=== PATIENT | male | born 1940 | race Caucasian/White ===

== ENCOUNTER 2016-09-07 12:14 | Outpatient (CLI) ==
[2014-06-18 18:50] VITALS: BMI 26.6
--- NOTE | 2016-09-07 13:10 | US ---
EXAM: Ultrasound bilateral carotid duplex HISTORY: Concern for carotid stenosis with history of left ICA occlusion COMPARISON: Carotid Doppler 03/20/2014 TECHNIQUE: Sonographic and color Doppler evaluation of the carotids were performed. FINDINGS: The right carotid is patent in appearance with moderate scattered atherosclerotic plaque visualized. The right ICA peak systolic velocity measures 190 cm/sec which is elevated. The ICA / CCA peak systolic velocity ratio is 2.0 and ICA end-diastolic velocity is 60 cm/sec. The left carotid is occluded and unchanged with occlusion noted in the proximal left carotid. The l eft side is unchanged in appearance when compared to prior exam. There is color Doppler flow in the most proximal portion of the left ICA. There is plaque noted in the left ECA. Vertebral arteries demonstrate antegrade flow bilaterally. IMPRESSION: 1. Persistent unchanged occlusion of the left ICA. 2. Moderate atherosclerotic plaque of the right ICA with elevated Doppler velocities consistent wit h 50 - 69% narrowing.
== END 2016-09-07 12:15 | disposition home or self-care (01) ==
LOC: RAD 12:14
PROVIDERS: ATTEND Emergency Medicine
DX: I65.29 Occlusion and stenosis of unspecified carotid artery (principal); R42 Dizziness and giddiness

== ENCOUNTER 2016-11-19 17:27 | Inpatient (IN) ==
[2016-11-19] MEDS ORDERED: ZOFRAN 4 MG/2 ML IVP STA (17:36)
[2016-11-19] MEDS ORDERED: NITROSTAT SL PRN (17:36)
--- NOTE | 2016-11-19 17:40 | ED.PDOC ---
General ED Provider: Dr. RUSTY PALACIOS JR Chief Complaint: Chest Pain Stated Complaint: Pain across mid chest left et right. SOA No nausea. Hx VA with CPR 1989.[End]4 hours 98.1 80 21 95% 151/80 5/10 Time Seen by Physician: 17:40 Mode of Arrival: Wheelchair Information Source: Patient Exam Limitations: No limitations Primary Care Provider: IDALIA LAWSON Nursing and Triage Documentation Reviewed and Agree: No Review of Systems - Review Of Systems Constitutional: Reports: Weakness Eyes: Reports: No symptoms Ears, Nose, Mouth, Throat: Reports: No symptoms Respiratory: Reports: No symptoms Cardiac: Reports: Chest pain GI: Reports: No symptoms : Reports: No symptoms Musculoskeletal: Reports: No symptoms Skin: Reports: No symptoms Neurological: Reports: Weakness (right sided chronic) Endocrine: Reports: No symptoms Hematologic/Lymphatic: Reports: No symptoms All Other Systems: Other Past Medical History - Past Medical History Endocrine: Reports: DM 2 Cardiovascular: Reports: CAD, [place], Hypertension, A-Fib Respiratory: Reports: None Hematological: Reports: None Gastrointestinal: Reports: None Genitourinary: Reports: None Neuro/Psych: Reports: CVA Musculoskeletal: Reports: None Cancer: Reports: Other - Surgical History General Surgical History: Reports: CABG - Family History Family History: Reports: Unknown - Social History Smoking Status: Former smoker Hx Substance Use: No Alcohol Screening: None Physical Exam - Physical Exam Appearance: Ill-appearing Ill-appearing: Mild Pain Distress: Mild Eyes: IZABELA, EOMI, Conjunctiva clear ENT: Ears normal, Nose normal, Oropharynx normal Neck: Supple Respiratory: Airway patent, Breath sounds clear, Breath sounds equal, Respirations nonlabored Cardiovascular: RRR, Pulses normal, No rub, No murmur GI/: Soft, Nontender, No masses, Bowel sounds normal, No Organomegaly Musculoskeletal: Limited ROM, Limited strength Skin: Warm, Dry, Normal color Neurological: Sensation intact, Motor intact, Reflexes intact, Cranial nerves intact, Alert, Oriented Psychiatric: Affect appropriate, Mood appropriate Interpretation - Radiology Interpretation Radiology Interpretation By: ED Physician Radiology Results: Negative Exam Interpreted: CXR - EKG Interpretation Time of EKG #1: 17:30 Rate: Normal Rhythm: Sinus (80) Ectopy: PVCs ST Segment: Other (bifascicular blockinverted anterior t waves) Re-Evaluation - Re-Evaluation Time of Re-Evaluation: 18:11 Status: Improved (RN notes pain improving, moving lower, had had beans several hoursbefore pain started) Critical Care Note - Critical Care Note Total Time (mins): 5 Course - Course Hematology/Chemistry: 11/20/16 05:34 11/20/16 05:34 Orders, Labs, Meds: Lab Review 11/19/16 11/19/16 17:36 17:55 WBC 6.49 RBC 4.32 L Hgb 13.4 L Hct 38.7 L MCV 89.6 MCH 31.0 MCHC 34.6 RDW Coeff of Cyrus 12.6 Plt Count 156 Immature Gran % (Auto) 0.5 Neut % (Auto) 73.7 Lymph % (Auto) 16.2 [place] % (Auto) 7.4 Eos % (Auto) 1.7 Baso % (Auto) 0.5 Immature Gran # (Auto) 0.0 Neut # 4.8 Lymph # 1.1 [place] # 0.5 Eos # 0.1 Baso # 0.0 D-Dimer (Manual) 630.84 Puncture Site Lrad O2 Saturation 93.0 L ABG pH 7.399 ABG pCO2 38.0 ABG pO2 68.0 L ABG HCO3 23.5 ABG Total CO2 25 ABG Base Excess -1 Judd Test + FiO2 % 21.0 Sodium 138 Potassium 3.5 Chloride 105 Carbon Dioxide 25 Anion Gap 11.5 BUN 22 H Creatinine 1.44 H Estimated GFR (MDRD) 48.00 BUN/Creatinine Ratio 15.27 Glucose 236 H Calcium 8.9 Total Bilirubin 0.40 AST 18 ALT 20 Alkaline Phosphatase 62 Total Creatine Kinase 63 Troponin I 0.0210 B-Natriuretic Peptide 292 H Total Protein 6.3 Albumin 3.6 Globulin 2.7 Albumin/Globulin Ratio 1.33 Orders Category Date Time Status ADMIT PATIENT INPATIENT .TO [facility] (MONITORED BED) ADMISSION 11/19/16 19: 04 Active ABG DRAW REQUEST Stat CARDIO 11/19/16 17:36 Completed ECHOCARDIOGRAM 2D-M MODE Routine CARDIO 11/19/16 19:09 Completed EKG-(ED ONLY) Stat CARDIO 11/19/16 17:36 Completed EKG-(IP & OP ONLY) DAILY CARDIO 11/20/16 06:00 Completed ACTIVITY .Early Mobilization for VTE Prevention CARE 11/19/16 19:04 Active INTAKE & OUTPUT Q8HR CARE 11/19/16 19:04 Active TELEMETRY MONITORING TELE CARE 11/19/16 19:08 Active VITAL SIGNS Q4HR CARE 11/19/16 19:04 Active CARDIAC DIET DIETARY 11/19/16 Dinner Completed ED APPLY O2 .ONCE EMERGENCY 11/19/16 17:36 Active ED HEARING AIDE TECHNICIAN APPLIED .ONCE EMERGENCY 11/19/16 17:36 Active ED IV/MEDIPORT/POWERPORT .ONCE EMERGENCY 11/19/16 17:36 Active ABG Stat LAB 11/19/16 17:36 Completed B-TYPE NATRIURETIC PEPTIDE Stat LAB 11/19/16 17:55 Completed CBC W/ AUTO DIFF DAILY@0600 LAB 11/20/16 05:34 Completed CBC W/ AUTO DIFF Stat LAB 11/19/16 17:55 Completed COMPREHENSIVE METABOLIC PANEL DAILY@0600 LAB 11/20/16 05:34 Completed COMPREHENSIVE METABOLIC PANEL Stat LAB 11/19/16 17:55 Completed CREATINE KINASE Q8H LAB 11/20/16 01:45 Completed CREATINE KINASE Q8H LAB 11/20/16 09:15 Completed CREATINE KINASE Stat LAB 11/19/16 17:55 Completed D-DIMER Stat LAB 11/19/16 Completed D-DIMER Stat LAB 11/19/16 17:55 Completed TROPONIN I Q8H LAB 11/20/16 01:45 Completed TROPONIN I Q8H LAB 11/20/16 09:15 Completed TROPONIN I Stat LAB 11/19/16 17:55 Completed 0.9 % Sodium Chloride [Saline Flush] MEDS 11/19/16 17:36 Discontinued 1 syr IVF PRN PRN Acetaminophen [Tylenol] MEDS 11/19/16 19:04 Discontinued 650 mg PO Q4H PRN Nitroglycerin [Nitrostat] MEDS 11/19/16 17:36 Discontinued 0.4 mg SL Q5MIN X 3 DOSES PRN Ondansetron HCl/Pf [Zofran 4 mg/2 ml] MEDS 11/19/16 17:36 Discontinued 4 mg IVP ONCE STA Sodium Chloride 0.9% [Sodium Chloride] 1,000 ml MEDS 11/19/16 19:30 Discontinued IV 75 mls/hr RESUSCITATION STATUS Routine OTHERS 11/19/16 19:04 Ordered CHEST, 1V AP ONLY Stat RADS 11/19/16 17:36 Completed Medications Discontinued Medications Generic Name Dose Route Start Last Admin Trade Name Freq PRN Reason Stop Dose Admin Acetaminophen 650 mg 11/19/16 19:04 Tylenol PO Q4H PRN Mild Pain Aspirin 81 mg 11/20/16 09:00 11/20/16 10:15 Aspirin Ec PO 81 mg DAILYWM PRUDENCIO Administration Clopidogrel Bisulfate 75 mg 11/20/16 09:00 11/20/16 10:20 Plavix PO 75 mg DAILY PRUDENCIO Administration Ferrous Sulfate 324 mg 11/20/16 09:30 11/20/16 10:22 Ferrous Sulfate PO 324 mg BID PRUDENCIO Administration Fish Oil 1,000 mg 11/20/16 09:30 11/20/16 10:25 Bethesda-3 Fish Oil PO 1,000 mg DAILY PRUDENCIO Administration Hydrochlorothiazide 6.25 mg 11/20/16 09:30 11/20/16 10:23 Hydrochlorothiazide PO 6.25 mg DAILY PRUDENCIO Administration Sodium Chloride 1,000 mls @ 75 mls/hr 11/19/16 19:30 11/20/16 09:27 Sodium Chloride IV 75 mls/hr .[id number] PRUDENCIO Administration Linagliptin 5 mg 11/20/16 09:00 11/20/16 10:21 Tradjenta PO 5 mg DAILY [facility] Administration Lisinopril 5 mg 11/20/16 09:30 Zestril PO DAILY [facility] Lisinopril 5 mg 11/20/16 09:30 11/20/16 10:26 Zestril PO 5 mg DAILY [facility] Administration Nitroglycerin 0.4 mg 11/19/16 17:36 Nitrostat SL Q5MIN X 3 DOSES PRN Chest Pain Ondansetron HCl 4 mg 11/19/16 17:36 11/19/16 23:42 Zofran 4 Mg/2 Ml IVP 11/19/16 17:37 Not Given ONCE STA Pantoprazole Sodium 40 mg 11/20/16 09:00 11/20/16 10:21 Protonix PO 40 mg QDAC [facility] Administration Paroxetine HCl 20 mg 11/20/16 09:00 11/20/16 10:19 Paxil PO 20 mg DAILY [facility] Administration Potassium Chloride 8 meq 11/20/16 09:00 11/20/16 10:18 Klor-Con 8 Meq PO 8 meq DAILY PRUDENC[facility] Administration Simvastatin 40 mg 11/20/16 21:00 Zocor PO BEDTIME [facility] Sodium Chloride 1 syr 11/19/16 17:36 Saline Flush IVF PRN PRN To flush IV Sotalol HCl 40 mg 11/20/16 09:00 11/20/16 10:15 Betapace PO 40 mg BID PRUDENCIO Administration Sucralfate 1 gm 11/20/16 11:00 11/20/16 11:21 Carafate PO 1 gm ACHS PRUDENCIO Administration Vital Signs: Temp Pulse Resp BP Pulse Ox 11/19/16 17:29 98.1 F 80 21 151/80 H 95 SUDHA Risk Score SUDHA Risk Score: Risk Score Odds of by 30D 0 0.1 (0.1-0.2) 1 0.3 (0.2-0.3) 2 0.4 (0.3-0.5) 3 0.7 (0.6-0.9) 4 1.2 (1.0-1.5) 5 2.2 (1.9-2.6) 6 3.0 (2.5-3.6) 7 4.8 (3.8-6.1) Departure - Departure Time of Disposition: 19:00 Disposition: ADMITTED INPATIENT Discharge Problem: Chest pain Condition: Stable Pt referred to PMD for follow-up: Yes Allergies/Adverse Reactions: Allergies No Known Allergies Allergy (Verified 11/19/16 17:34) Home Medications: Ambulatory Orders Aspirin [Aspirin EC] 81 mg PO DAILY 05/31/13 Clopidogrel Bisulfate [Clopidogrel] 75 mg PO DAILY 05/31/13 Ferrous Fumarate [Iron] 55 mg PO BID 05/31/13 Lisinopril/Hydrochlorothiazide [Lisinopril-Hctz 10-12.5 mg Tab] 0.5 tab PO DAILY 05/31/13 Bethesda-3 Fatty Acids [Fish Oil] 600 mg PO DAILY 05/31/13 Pantoprazole Sodium [Protonix] 40 mg PO QDAC 05/31/13 Paroxetine HCl [Paxil] 20 mg PO DAILY 05/31/13 Potassium Chloride [Klor-Con 8 Meq] 8 meq PO DAILY 05/31/13 Simvastatin [Zocor] 40 mg PO BEDTIME 05/31/13 Sotalol HCl [Sotalol] 40 mg PO BID 05/31/13 Linagliptin [Tradjenta] 5 mg PO DAILY 11/19/16
[2016-11-19 18:02] LABS: BASOPHILS % (AUTO) 0.5 % (0.0-3.0); EOSINOPHILS # (AUTO) 0.1 K/ul (0.0-0.7); EOSINOPHILS % (AUTO) 1.7 % (0.0-7.0); HEMATOCRIT 38.7 % (42.0-52.0); HEMOGLOBIN 13.4 g/dl (14.0-18.0); IMMATURE GRANULOCYTE % (AUTO) 0.5 % (0.0-5.0); LYMPHOCYTES # (AUTO) 1.1 K/uL (0.60-3.4); LYMPHOCYTES % (AUTO) 16.2 (10.0-50.0); MEAN CORPUSCULAR HGB CONC 34.6 (31.8-35.4); MEAN CORPUSCULAR VOLUME 89.6 fl (80.0-94.0); MONOCYTES # (AUTO) 0.5 K/uL (0.4-2.0); MONOCYTES % (AUTO) 7.4 (0-10); NEUTROPHILS # (AUTO) 4.8 K/ul (2.0-6.9); NEUTROPHILS % (AUTO) 73.7; PLATELET COUNT 156 10^3/uL (140-440); RED BLOOD COUNT 4.32 10^6/ul (4.70-6.10); WHITE BLOOD COUNT 6.49 K/ul (4.2-10.2)
[2016-11-19 18:02] LABS: ABG BASE EXCESS -1 (-2.0-2.0); ABG HCO3 23.5 (22.0-26.0); ABG PH 7.399 (7.35-7.45); ABG TCO2 25 (22.0-28.0)
[2016-11-19 18:27] LABS: ALBUMIN 3.6 g/dL (3.4-5.0); ALBUMIN/GLOBULIN RATIO 1.33; ANION GAP 11.5; BILIRUBIN,TOTAL 0.4 mg/dL (0.00-1.20); BUN/CREATININE RATIO 15.27; CALCIUM 8.9 mg/dL (8.2-10.2); CREATININE 1.44 mg/dL (0.60-1.10); POTASSIUM 3.5 mmol/L (3.5-5.1); TOTAL PROTEIN 6.3 g/dL (5.8-8.1); TROPONIN I 0.021 ng/ml (0.0000-0.4000)
[2016-11-19] MEDS ORDERED: TYLENOL PO PRN (19:04)
[2016-11-19 20:22] VITALS: BMI 22.9
[2016-11-19] MEDS: SODIUM CHLORIDE 1,000 ML IV SCH (21:34)
--- NOTE | 2016-11-20 00:38 | DI ---
EXAM: AP single view of the chest. HISTORY: Chest pain. FINDINGS: The bones are unremarkable. At multiple sternotomy wires. The cardiac silhouette and pul monary vasculature are within normal limits. The costophrenic angles are clear. There are calcified granulomas. No infiltrate or consolidation. Impression: No acute cardiopulmonary disease.
[2016-11-20 02:22] LABS: TROPONIN I 0.034 ng/ml (0.0000-0.4000)
[2016-11-20 06:13] LABS: BASOPHILS % (AUTO) 0.3 % (0.0-3.0); EOSINOPHILS # (AUTO) 0.1 K/ul (0.0-0.7); EOSINOPHILS % (AUTO) 1.6 % (0.0-7.0); HEMATOCRIT 39.5 % (42.0-52.0); HEMOGLOBIN 13.4 g/dl (14.0-18.0); IMMATURE GRANULOCYTE % (AUTO) 0.3 % (0.0-5.0); LYMPHOCYTES % (AUTO) 16.6 (10.0-50.0); MEAN CORPUSCULAR HEMOGLOBIN 30.7 pg (27.0-31.0); MEAN CORPUSCULAR HGB CONC 33.9 (31.8-35.4); MEAN CORPUSCULAR VOLUME 90.4 fl (80.0-94.0); MONOCYTES # (AUTO) 0.6 K/uL (0.4-2.0); MONOCYTES % (AUTO) 8.8 (0-10); NEUTROPHILS # (AUTO) 4.6 K/ul (2.0-6.9); NEUTROPHILS % (AUTO) 72.4; PLATELET COUNT 150 10^3/uL (140-440); RED BLOOD COUNT 4.37 10^6/ul (4.70-6.10); WHITE BLOOD COUNT 6.28 K/ul (4.2-10.2)
[2016-11-20 06:36] LABS: ALBUMIN 3.6 g/dL (3.4-5.0); ALBUMIN/GLOBULIN RATIO 1.38; ANION GAP 10.7; BILIRUBIN,TOTAL 0.6 mg/dL (0.00-1.20); BUN/CREATININE RATIO 14.17; CALCIUM 8.6 mg/dL (8.2-10.2); CREATININE 1.34 mg/dL (0.60-1.10); POTASSIUM 3.7 mmol/L (3.5-5.1); TOTAL PROTEIN 6.2 g/dL (5.8-8.1)
--- NOTE | 2016-11-20 08:58 | PN ---
DATE OF SERVICE: 11/19/16 - ADMISSION NOTE SUBJECTIVE: This 75-year-old white male came to the emergency room with complaints of having chest pain. The patient's chest pain is fairly atypical, sharp, shooting pain unrelated to exertion. REVIEW OF SYSTEMS: CONSTITUTIONAL: No night sweats. No fatigue, malaise, lethargy. No fever or chills. HEENT: Eyes: No visual changes. No eye pain. No eye discharge. ENT: No runny nose. No epistaxis. No sinus pain. No sore throat. No odynophagia. No congestion. RESPIRATORY: No cough, no congestion. No hemoptysis. CARDIOVASCULAR: No angina symptoms. No CHF symptoms. No atypical chest pain for CAD. No palpitations. No shortness of breath. GASTROINTESTINAL: No abdominal pain. No nausea or vomiting. No diarrhea or constipation. No hematemesis. No hematochezia. GENITOURINARY: No urgency. No frequency. No dysuria. No hematuria. No obstructive symptoms. No discharge. No pain. No significant abnormal bleeding. MUSCULOSKELETAL: No musculoskeletal pain; no joint swelling. NEUROLOGICAL: No headache. No neck pain. No syncope. No seizures. No dizziness. PSYCHIATRIC: Not anxious. No depression. No suicidal thoughts. No homicidal thoughts. SKIN: No rash. No lesions. No wounds. ENDOCRINE: No unexplained weight loss. No weight gain. HEMATOLOGIC/LYMPHATIC: No anemia. No purpura. No petechiae. No prolonged or excessive bleeding. No palpable lymph nodes. PHYSICAL EXAMINATION: (Reported as unremarkable) V/S: Temperature 97, pulse 75, BP 143/77, respiratory rate 20, 02 sat 95% on room air. HEENT: Head normocephalic, atraumatic. Eyes: Extraocular muscles are intact. Pupils are equal, round and reactive to light and accommodation. Ears: No lesions. Nose appeared normal. Throat: No exudate or erythema. NECK: Supple. No JVD, no carotid bruit. No lymphadenopathy or thyromegaly. LUNGS: Clear to auscultation. Percussion note normal. Chest symmetrical. HEART: S1, S2, no S3. No murmurs. No cyanosis or clubbing. No ascites. Pulses: Dorsalis pedis and posterior tibial pulses +1 to +2 both sides. ABDOMEN: Soft. Nontender. Bowel sounds active. No CVA tenderness. No mass felt. EXTREMITIES: No edema. Full range of motion of all extremities, equal. NEUROLOGIC: No focal deficit. Cranial nerves II through XII are grossly intact. No headache, no double vision or headache. SKIN: Not dry. Intact. Turgor - normal. LYMPHATIC: No palpable lymph nodes/no lymphedema. MUSCULOSKELETAL: Normal joints with no swelling. Muscle tone is normal. LAB TESTS: Troponin negative. CK-MB negative. EKG sinus rhythm unchanged from the one done before. The patient has history of acute [place] and coronary artery bypass surgery with stroke in the past. ASSESSMENT: 1. CHEST PAIN SEEMS TO BE NONCARDIAC, ETIOLOGY UNKNOWN 2. STATUS POST CVA 3. DYSLIPIDEMIA 4. HISTORY OF SMOKING 5. CHRONIC LUNG DISEASE PLAN: 1. Admit 2. Continue all the medications 3. Serial cardiac markers and serial EKGs 4. Telemetry 5. Oximetry The case discussed with ER attending. Condition seems to be stable. TIME SPENT: More than 30 minutes. Plan and coordination of the patient's care discussed in the presence of nurse. JUDSON
[2016-11-20] MEDS ORDERED: FERROUS FUMARATE 55 MG PO SCH (09:00)
[2016-11-20] MEDS ORDERED: FATTY ACIDS PO SCH (09:00)
[2016-11-20] MEDS ORDERED: KLOR-CON 8 MEQ PO SCH (09:00)
[2016-11-20] MEDS ORDERED: PROTONIX PO SCH (09:00)
[2016-11-20] MEDS ORDERED: ASPIRIN EC PO SCH (09:00)
[2016-11-20] MEDS ORDERED: PLAVIX PO SCH (09:00)
[2016-11-20] MEDS ORDERED: OMEGA PO SCH (09:00)
[2016-11-20] MEDS ORDERED: PAXIL PO SCH (09:00)
[2016-11-20] MEDS ORDERED: TRADJENTA PO SCH (09:00)
[2016-11-20] MEDS ORDERED: BETAPACE PO SCH (09:00)
[2016-11-20 09:18] LABS: CHOL/HDL RATIO 4.2 (4.5-6.4)
[2016-11-20] MEDS: SODIUM CHLORIDE 1,000 ML IV SCH (09:27)
[2016-11-20] MEDS ORDERED: FERROUS SULFATE PO SCH (09:30)
[2016-11-20] MEDS ORDERED: ZESTRIL PO SCH ×2 (09:30)
[2016-11-20] MEDS ORDERED: HYDROCHLOROTHIAZIDE PO SCH (09:30)
[2016-11-20] MEDS ORDERED: OMEGA-3 FISH OIL PO SCH (09:30)
[2016-11-20 09:48] LABS: TROPONIN I 0.021 ng/ml (0.0000-0.4000)
--- NOTE | 2016-11-20 10:18 | CT ---
EXAM: CT abdomen pelvis without contrast HISTORY: Abdominal distension and pain COMPARISON: CT abdomen pelvis 06/18/2014 and 04/21/2012 TECHNIQUE: Serial axial images of the abdomen pelvis were performed from the lung bases through the inferior pelvis without contrast. These were viewed in multiple planes. FINDINGS: The lung bases are clear. The heart is enlarged without pericardial effusion. Low attenu ation and the left ventricular apex on the anterior myocardial wall consistent with prior infarct. Evaluation is limited due to lack of contrast. The liver is unremarkable. The gallbladder is mildl y distended. The adrenal glands are unremarkable. The kidneys are unchanged with low attenuation e xophytic lesion in the right kidney which is stable. The spleen is unremarkable. The pancreas is u nremarkable. The stomach is nondistended. The small bowel in the abdomen and pelvis is unremarkable. The colon with wall thickening and mild inflammation with multiple diverticuli of the sigmoid colon as seen on axial image 66 and coronal im age 51. The bladder is distended. The prostate is unremarkable with metallic densities unchanged in the prostate. There is moderate atherosclerotic disease with infrarenal abdominal aortic enlargeme nt measuring 3.1 cm in diameter. The osseous structures demonstrate degenerative disease of the spin e. IMPRESSION: 1. Minimal thickening and ground-glass surrounding the sigmoid colon as described above may represe nt artifact of non distension versus minimal diverticulitis/inflammation. 2. Stable right renal cyst. 3. Stable minimal abdominal aortic dilatation as measured above. 4. Low attenuation in the apex of the left ventricle consistent with previous infarct is unchanged f rom prior exam.
[2016-11-20] MEDS ORDERED: CARAFATE PO SCH (11:00)
--- NOTE | 2016-11-20 12:42 | PCM.PROG ---
Attending Provider: ATTENDING PROVIDER: Dr. IDALIA EMERY -- SEEN BY DR. LANDIN DATE OF SERVICE: 11/20/16 SUBJECTIVE: This 75 year old WHITE/ M was hospitalized 11/19/16. The patient had chest pain yesterday and was admitted by Dr. Emery to rule out ACS. Dr. Emery suggested I take over care of the patient this morning. The patient is seen and examined and states he has no chest pain during my visit with him. He has limited communication secondary to stroke. The patient is no distress. REVIEW OF SYSTEMS: CONSTITUTIONAL: No fever, no chills. ENDOCRINE: No weight loss or weight gain. HEENT: No sinus drainage, no sore throat. CVS: No angina symptoms. No CHF symptoms. No palpitations. No atypical chest pain for CAD. No shortness of breath. RESPIRATORY: No cough, no hemoptysis. GI: No melena. Distention of abdomen. No abdominal pain. No nausea, no vomiting. : No hematuria. No polyuria. SKIN: Chronic dermatitis type changes over entire body. MUSCULOSKELETAL: No pain. BILLING COORDINATOR: No blackout, no dizziness. No headache. No double vision. Right hemiparesis. Aphasic. PSYCHIATRIC: Not anxious; no depression. No suicidal thoughts. No homicidal thoughts. PHYSICAL EXAMINATION: GENERAL: Lying in bed in no distress. VITAL SIGNS: Temperature 97.8 F, Pulse 64, Respiratory Rate 17, BP 139/78, Pulse Ox 94% HEENT: Aphasic. Mucosa is dry, pallor positive. NECK: No JVP, no carotid bruit. No lymphadenopathy. CARDIAC: S1, S2, no S3. No murmur, gallop or regurgitation. LUNGS: Decreased breath sounds. Clear to auscultation. ABDOMEN: Distended, tympanic to percussion. Bowel sounds active. No rigidity , guarding or CVA tenderness. EXTREMITIES: No clubbing, cyanosis or edema. NEUROLOGIC: Awake, alert and oriented x3. Right hemiparesis. LYMPHATIC: No palpable lymph nodes SKIN: Not dry. Intact. MUSCULOSKELETAL: No joint swelling. LAB REVIEW: 11/20/16 05:34 11/20/16 05:34 11/20/16 05:34: WBC 6.28, RBC 4.37 L, Hgb 13.4 L, Hct 39.5 L, MCV 90.4, MCH 30.7 , MCHC 33.9, RDW Coeff of Cyrus 12.6, Plt Count 150, Immature Gran % (Auto) 0.3, Neut % (Auto) 72.4, Lymph % (Auto) 16.6, [place] % (Auto) 8.8, Eos % (Auto) 1.6, Baso % (Auto) 0.3, Immature Gran # (Auto) 0.0, Neut # 4.6, Lymph # 1.0, [place] # 0.6, Eos # 0.1, Baso # 0.0, Sodium 140, Potassium 3.7, Chloride 107, Carbon Dioxide 26, Anion Gap 10.7, BUN 19 H, Creatinine 1.34 H, Estimated GFR (MDRD) 52.00, BUN/Creatinine Ratio 14.17, Glucose 133 H D, Calcium 8.6, Total Bilirubin 0.60, AST 18, ALT 18, Alkaline Phosphatase 53 L, Total Protein 6.2, Albumin 3.6, Globulin 2.6, Albumin/Globulin Ratio 1.38 11/20/16 01:45: Total Creatine Kinase 53, Troponin I 0.0340 ASSESSMENT: 1. Chest pain/rule out ACS 2. Hypertension 3. Dyslipidemia 4. History of aortic aneurysm 5. History of prostate cancer (without treatment) PLAN: 1. CT scan of the abdomen and pelvis without contrast 2. TSH, T4 3. Carafate and Protonix 4. Echocardiogram Plan and coordination of the patient's care discussed in the presence of Vp Digital Marketing and nurse. CONDITION: Stable SCRIBED BY: NANCY LOPEZ Executive Housekeeper scribed while in presence of service performed by Dr. Landin on 11/20/16 (0801)
--- NOTE | 2016-11-20 14:48 | CM.DICTOOL ---
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 ANDERS, 05/31/13 LAST VITALS Temp Pulse Resp BP Pulse Ox 97.4 F L 66 20 149/79 H 96 11/20/16 09:56 11/20/16 09:56 11/20/16 09:56 11/20/16 09:56 11/20/16 09:56 ACTIVE MEDICATIONS Aspirin (Aspirin Ec) 81 mg PO DAILYWM [facility] Last Admin: 11/20/16 10:15 Dose: 81 mg Clopidogrel Bisulfate (Plavix) 75 mg PO DAILY [facility] Last Admin: 11/20/16 10:20 Dose: 75 mg Ferrous Sulfate (Ferrous Sulfate) 324 mg PO BID [facility] Last Admin: 11/20/16 10:22 Dose: 324 mg Fish Oil (Alma-3 Fish Oil) 1,000 mg PO DAILY [facility] Last Admin: 11/20/16 10:25 Dose: 1,000 mg Linagliptin (Tradjenta) 5 mg PO DAILY [facility] Last Admin: 11/20/16 10:21 Dose: 5 mg Lisinopril (Zestril)/Hydrochlorothiazide (Hydrochlorothiazide) 6.25-5 mg mg PO DAILY [facility] Last Admin: 11/20/16 10:26 Dose: 5 mg Pantoprazole Sodium (Protonix) 40 mg PO QDAC [facility] Last Admin: 11/20/16 10:21 Dose: 40 mg Paroxetine HCl (Paxil) 20 mg PO DAILY [facility] Last Admin: 11/20/16 10:19 Dose: 20 mg Potassium Chloride (Klor-Con 8 Meq) 8 meq PO DAILY [facility] Last Admin: 11/20/16 10:18 Dose: 8 meq Simvastatin (Zocor) 40 mg PO BEDTIME [facility] Sotalol HCl (Betapace) 40 mg PO BID [facility] Last Admin: 11/20/16 10:15 Dose: 40 mg ALLERGIES No Known Allergies Allergy (Verified 03/23/17 17:34) NEW PRESCRIPTIONS: NO NEW PRESCRIPTIONS SMOKING: FORMER SMOKER DISEASE SPECIFIC EDUCATION: CHEST PAIN HOME MEDICATIONS ACTIVITY FOLLOW UP LAB REVIEW: 11/20/16 05:34 11/20/16 05:34 11/20/16 09:15: Total Creatine Kinase 64, Troponin I 0.0210 11/20/16 05:50: Triglycerides 106, Cholesterol 144, LDL Cholesterol, Calc 89, VLDL Cholesterol 21, HDL Cholesterol 34 L, Cholesterol/HDL Ratio 4.2 L, TSH 2.670, Free T4 0.87 11/20/16 05:34: WBC 6.28, RBC 4.37 L, Hgb 13.4 L, Hct 39.5 L, MCV 90.4, MCH 30.7 , MCHC 33.9, RDW Coeff of Cyrus 12.6, Plt Count 150, Immature Gran % (Auto) 0.3, Neut % (Auto) 72.4, Lymph % (Auto) 16.6, [place] % (Auto) 8.8, Eos % (Auto) 1.6, Baso % (Auto) 0.3, Immature Gran # (Auto) 0.0, Neut # 4.6, Lymph # 1.0, [place] # 0.6, Eos # 0.1, Baso # 0.0, Sodium 140, Potassium 3.7, Chloride 107, Carbon Dioxide 26, Anion Gap 10.7, BUN 19 H, Creatinine 1.34 H, Estimated GFR (MDRD) 52.00, BUN/Creatinine Ratio 14.17, Glucose 133 H D, Calcium 8.6, Total Bilirubin 0.60, AST 18, ALT 18, Alkaline Phosphatase 53 L, Total Protein 6.2, Albumin 3.6, Globulin 2.6, Albumin/Globulin Ratio 1.38 11/20/16 01:45: Total Creatine Kinase 53, Troponin I 0.0340 11/19/16 : D-Dimer (Manual) 630.84 PLAN: DISCHARGE HOME TODAY. RETURN TO SEE DR. ADAME IN 5-7 DAYS. PLEASE PHONE TO SCHEDULE YOUR FOLLOW UP APPOINTMENT [phone] RESUME YOUR HOME MEDICATIONS PER LIST PROVIDED BY THE NURSING STAFF NO NEW MEDICATIONS ACTIVITY: GET PLENTY OF REST AT HOME. GRADUALLY INCREASE YOUR ACTIVITY LEVEL ACCORDING TO YOUR TOLERATION DIET: CONSISTENT CARBS SUMMARY: THE PATIENT IS ALERT AND ORIENTED X3. HE HAS EXPRESSIVE APHASIA AND RIGHT SIDE HEMAPARESIS RESULTING FROM A PAST CVA. HE VERBALIZES "YES" TO QUESTIONS ASKED BUT NODS HIS HEAD YES OR NO APPROPRIATELY TO ANSWER QUESTIONS. HE IS ABLE TO MAKE HIS WANTS AND NEEDS KNOWN. CURRENTLY MR. POLK RESIDES AT HOME ALONE. 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 SHE ALSO ASSISTS WITH HYGIENIC NEEDS. SHE PROVIDES SERVICES IN HIS HOME 69 HOURS OVER A TWO WEEK PERIOD. MR. POLK IS COMPLETELY UNABLE TO AMBULATE. 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 HE HAS A CANE BUT IS UNABLE TO USE IT. HE DOES NOT UTILIZE HOME HEALTH SERVICES. HE DESIRES TO RETURN TO HIS HOME AT DISCHARGE. THE PATIENT HAS A WOUND TO HIS RIGHT OUTER ANKLE FROM A RECENT FALL. WOUND CARE IS BEING PROVIDED THROUGH [facility]. OTHERWISE HE HAS NO DECUBITUS ULCERS PRESENT. HE IS AWARE AND AGREEABLE FOR DISCHARGE TODAY. YASSINE ADAME M.D.
[2016-11-20 14:57] VITALS: BP 152/73; TEMP 97.6
[2016-11-20] MEDS ORDERED: ZOCOR PO SCH (21:00)
--- NOTE | 2016-11-23 08:40 | ECHO2D ---
Date of Exam: 11/20/16 Ordering Physician: IDALIA LAWSON Reason for Echo: CHEST PAIN, HTN, DM, CVA, A-FIB, CAD, CABG M-Mode Normal Adult Results LV Dimensions Normal Adult Results AoV Opening excursions >1.6 >1.6 LVEDD-base- 3.5-5.8 6.0 Ao root dimensions 2.0-3.7 3.8 LVESD-base- 3.1-4.6 L. Atrium dimensions 1.9-3.8 4.5 Post. Wall thickness 0.8-1.1 1.3 IV septum (thickness) 0.7-1.2 1.2 Post. Wall excursion 0.72-1.3 0.6 Septal motion 0.3 Systolic motion R. Ventricular cavity 1.5-2.0 NORMAL LVEF 60% 20 TO 25% Paradoxical septal wall motion NORMAL 2-D : ENLARGED LEFT ATRIAL AND LEFT VENTRICLE CAVITIES--HYPOKINETIC LEFT VENTRICLE--NORMAL VALVES--NO EFFUSION, NO THROMBUS M-MODE: MV: NORMAL AV: NORMAL TV: NORMAL PV: NORMAL CHAMBER SIZE: ENLARGED LEFT ATRIAL AND LEFT VENTRICLE CAVITIES WALL MOTION: HYPOKINETIC LEFT VENTRICLE PERICARDIUM: NORMAL INTERPRETATION: 1. BORDERLINE LEFT VENTRICULAR HYPERTROPHY 2. ENLARGED LEFT ATRIAL AND LEFT VENTRICLE CAVITIES 3. HYPOKINETIC LEFT VENTRICLE 4. LEFT VENTRICULAR EJECTION FRACTION 20 TO 25% 5. NORMAL VALVES MTDD
--- NOTE | 2016-12-31 13:43 | SSS ---
DATE OF SERVICE: 11/20/16 REASON FOR ADMISSION/ HISTORY OF PRESENT ILLNESS: Chest pain, midsternal, sharp and nonradiating. Some shortness of breath. The patient's family brought to the emergency room and seen by Dr. Blunt and was admitted to Dr. Emery for chest pain, rule out ACS. Initial lab work is negative for coronary artery disease but given his history hypertension ,CVA and dyslipidemia the patient was admitted for the chest pain rule out acute coronary syndrome. BNP was 292. Initially Dr. Emery saw that patient and gave to me for the followup. REVIEW OF SYSTEMS: CONSTITUTIONAL: No night sweats. No fatigue, malaise, lethargy. No fever or chills. HEENT: Eyes: No visual changes. No eye pain. No eye discharge. ENT: No runny nose. No epistaxis. No sinus pain. No sore throat. No odynophagia. No ear pain. No congestion. RESPIRATORY: No cough, no congestion. No hemoptysis. CARDIOVASCULAR: No angina symptoms. No CHF symptoms. Chest pain. No palpitations. Some shortness of breath. GASTROINTESTINAL: No abdominal pain. No nausea or vomiting. No diarrhea or constipation. No hematemesis. No hematochezia. GENITOURINARY: No urgency. No frequency. No dysuria. No hematuria. No obstructive symptoms. No discharge. No pain. No significant abnormal bleeding. MUSCULOSKELETAL: No musculoskeletal pain. No joint swelling. NEUROLOGICAL: Awake, alert, oriented to time, place and person. No headache. No neck pain. No syncope. No seizures. No dizziness. PSYCHIATRIC: Not anxious. No depression. No suicidal thoughts. No homicidal thoughts. SKIN: No rash. No lesions. No wounds. ENDOCRINE: No unexplained weight loss. No weight gain. HEMATOLOGIC/LYMPHATIC: No anemia. No purpura. No petechiae. No prolonged or excessive bleeding. No palpable lymph nodes. PAST MEDICAL/SURGICAL HISTORY: CAD with history of PA Hypertension Dyslipidemia Heart attack in 1988 and the patient was given CPR CVA with right sided hemiparesis COPD GERD Diverticulosis Prostate cancer, radiation three years ago Diabetes Hypothyroidism Bypass surgery Cataract surgery PERSONAL/FAMILY HISTORY/SOCIAL HISTORY: The patient used to smoke but quit 2006. Family history is significant for the cancer and diabetes. PHYSICAL EXAMINATION: VITAL SIGNS: Blood pressure 139/78, respiratory 17, heart rate 64, temperature 97.8. HEENT: Head normocephalic, atraumatic. Eyes: Extraocular muscles are intact. Pupils are equal, round and reactive to light and accommodation. Ears: No lesions. Nose appeared normal. Throat: No exudate or erythema. Mucosa dry. Pallor positive. No icterus. NECK: Supple. No JVD, no carotid bruit. No lymphadenopathy or thyromegaly. LUNGS: Bilateral entry is decreased and clear to auscultation. Percussion note normal. Chest symmetrical. HEART: S1, S2, no S3. No murmurs. No cyanosis or clubbing. No ascites. Pulses: Dorsalis pedis and posterior tibial pulses +1 to +2 both sides. ABDOMEN: Soft. Nontender. Bowel sounds active. No CVA tenderness. No mass felt. EXTREMITIES: No edema. Full range of motion of all extremities, equal. NEUROLOGIC: No focal deficit. Cranial nerves II through XII are grossly intact. No headache, no double vision or headache. The patient is awake and oriented to time and place. Right hemiparesis present. SKIN: Not dry. Intact. Turgor - normal. LYMPHATIC: No palpable lymph nodes/no lymphedema. MUSCULOSKELETAL: Normal joints with no swelling. Muscle tone is normal. ALLERGIES: No known allergies MEDICATIONS: Potassium Fish oil Aspirin Sotalol Zocor Plavix Paroxetine Lisinopril/Hydrochlorothiazide Iron pill Tradjenta LABS/EKG'S/X-RAY/ECHO/ABG: WBC 6.49, hgb 13.4, hct 38.7, plt count 156, D-dimer 630, sodium 138, potassium 3.5, chloride 105, Bicarb 25, BUN 22, creatinine 1.44 and glucose 236. PROGRESS NOTES: The patient was admitted initially under the care of Dr. Eemry then transferred to ct as per Dr. Emery. Three sets of the cardiac enzymes were negative. He did not have any complication during the hospital stay. Echocardiogram was scheduled by Dr. Emery as outpatient. As patient was doing fine and did not have any complications that patient is being discharged home. DIAGNOSES: 1. Chest pain, noncardiac 2. Hypertension 3. Coronary artery disease with history of PA status post bypass surgery 4. Dyslipidemia 5. COPD 6. CVA with right hemiparesis 7. History of atrial fibrillation 8. Diabetes Mellitus, type 2 9. GERD 10. Osteoarthritis 11. History of alcoholism 12. Prostate cancer with radiation RECOMMENDATIONS/PLAN: 1. Discharge patient home 2. Echocardiogram as outpatient 3. Lifestyle modification, weight loss 4. Will see the patient in the office within one week TIME SPENT: More than 65 minutes. JUDSON
== END 2016-11-20 15:04 | disposition home or self-care (01) | DRG 313 ==
LOC: ED 17:27 → MEDSURG B 19:24
PROVIDERS: ADMIT Internal Medicine; ATTEND Emergency Medicine
DX: R07.89 Other chest pain (principal); I69.351 Hemiplegia and hemiparesis following cerebral infarction affecting right dominant side; I10 Essential (primary) hypertension; I51.7 Cardiomegaly; E11.9 Type 2 diabetes mellitus without complications; R06.02 Shortness of breath; I25.10 Atherosclerotic heart disease of native coronary artery without angina pectoris; E78.5 Hyperlipidemia, unspecified; I25.2 Old myocardial infarction; J44.9 Chronic obstructive pulmonary disease, unspecified; K21.9 Gastro-esophageal reflux disease without esophagitis; M19.90 Unspecified osteoarthritis, unspecified site; F10.21 Alcohol dependence, in remission; R14.0 Abdominal distension (gaseous); Z86.79 Personal history of other diseases of the circulatory system; Z79.02 Long term (current) use of antithrombotics/antiplatelets; Z79.84 Long term (current) use of oral hypoglycemic drugs
CPT/HCPCS: 36415; 80053; 80061; 82550; 82803; 83880; 84439; 84443; 84484; 85025; 85379; 93005; 93010; 99284

== ENCOUNTER 2017-10-23 11:35 | Inpatient (IN) ==
--- NOTE | 2017-10-23 11:45 | ED.PDOC ---
General ED Provider: Dr. RAMSES FIGUEROA Chief Complaint: Abdominal Pain Stated Complaint: Patient complains of lower abdominal pain for the past 4 days. No nausea or vomiting. Has a history of stroke in the past, Speech is limited. Also complains of conjestion. Time Seen by Physician: 11:47 Mode of Arrival: Walk-In Information Source: Patient Exam Limitations: Language barrier Primary Care Provider: IDALIA LAWSON Nursing and Triage Documentation Reviewed and Agree: Yes Reviewed sepsis parameters & appropriate labs ordered?: No System Inflammatory Response Syndrome: Not Applicable Sepsis Protocol: For patient's 13 years and over: Temp is 96.8 and below OR 101 and greater Pulse >90 BPM Resp >20/minute Acutely Altered Mental Status Are patient's symptoms suggestive of a new infection, such as: -Pneumonia -Skin, Soft Tissue -Endocarditis -UTI -Bone, Joint Infection -Implantable Device -Acute Abdominal Infection -Wound Infection -Meningitis -Blood Stream Catheter Infection -Unknown System Inflammatory Response Syndrome: Not Applicable GI Complaint Exam - Abdominal Pain Complaint/Exam Onset: Gradual Duration: 4 days Symptoms Are: Still present Timing: Constant Initial Severity: Moderate Current Severity: Moderate Location of Pain: RLQ, LLQ Character: Reports: Unable to describe Alleviating: Reports: None (did not respond to Pepto Bismal. ) Associated Signs and Symptoms: Reports: Cough. Denies: Diaphoresis, Fever, Chest pain, Dizziness, Back pain, Constipation, Blood in stool, Dysuria, Urinary frequency, Decreased urine output, Decreased appetite, Discharge, Nausea , Vomiting, Diarrhea, Decreased activity AAA Risk Factors: Reports: None Cardiac Risk Factors: Reports: Hypertension, CAD Testicular Torsion Risk Factors: Reports: None Abdominal Findings: Absent: Rebound tenderness, Peritoneal signs, McBur[place]'s Point tender, CVA Tenderness, Hernia, Inguinal swelling Differential Diagnoses: ACS, AMI, Appendicitis, Bowel Obstruction, Diverticulitis, Pancreatitis, GB, UTI Quality Indicators for Cardiac Chest Pain: EKG in 10min. Review of Systems - Review Of Systems Constitutional: Reports: Loss of appetite. Denies: Diaphoresis, Fever, Malaise , Weakness Respiratory: Reports: Cough GI: Reports: Abdominal pain, Poor appetite. Denies: Nausea, Vomiting : Reports: No symptoms Musculoskeletal: Reports: No symptoms Skin: Reports: No symptoms Neurological: Reports: Weakness All Other Systems: Reviewed and Negative Past Medical History - Past Medical History Endocrine: Reports: DM 2 Cardiovascular: Reports: CAD, ND, Hypertension, A-Fib Respiratory: Reports: None Hematological: Reports: None Gastrointestinal: Reports: None Genitourinary: Reports: None Neuro/Psych: Reports: CVA Musculoskeletal: Reports: None Cancer: Reports: Other - Surgical History General Surgical History: Reports: CABG - Family History Family History: Reports: Unknown - Social History Smoking Status: Former smoker Hx Substance Use: No Alcohol Screening: None - Immunizations Tetanus Shot up to Date: No Physical Exam - Physical Exam Appearance: Ill-appearing Ill-appearing: Moderate Pain Distress: Mild Eyes: IZABELA, EOMI, Conjunctiva clear Neck: Supple Respiratory: Rhonchi (left base ) Cardiovascular: RRR, Pulses normal, No rub, No murmur GI/: Soft, Tender (mild lower abdominal tenderness.) Musculoskeletal: Normal strength, ROM intact, No edema, No calf tenderness Skin: Warm Neurological: Alert, Focal Deficit (Right Hemiparesis, Dysarthira ) Psychiatric: Anxious Interpretation - Radiology Interpretation Radiology Interpretation By: Radiologist Exam Interpreted: CT Scan (chest Abdomen and Pelvis ) - Tube Sorter Rate: Normal Rhythm: Sinus Ectopy: None - EKG Interpretation Time of EKG #1: 11:51 Rate: Normal Rhythm: Sinus Ectopy: None [place]: Left ST Segment: Normal Interpretation: Sinus Rhythm with sinus Arrhythmia Re-Evaluation - Re-Evaluation Time of Re-Evaluation: 14:11 Status: Improved Pain Level: no more abdominal pain Physician Notification - Case Discussed Physician Notified: Lawson Time of Notification: 13:40 (Admit with steroids, Antibiotx,) Critical Care Note - Critical Care Note Total Time (mins): 0 Course - Course Hematology/Chemistry: 10/23/17 12:15 10/23/17 12:15 Orders, Labs, Meds: Lab Review 10/23/17 10/23/17 10/23/17 12:15 12:15 12:15 WBC 7.38 RBC 4.59 L Hgb 14.3 Hct 40.9 L MCV 89.1 MCH 31.2 H MCHC 35.0 RDW Coeff of Cyrus 13.1 Plt Count 185 Immature Gran % (Auto) 0.3 Neut % (Auto) 71.0 Lymph % (Auto) 17.5 [place] % (Auto) 7.7 Eos % (Auto) 3.0 Baso % (Auto) 0.5 Immature Gran # (Auto) 0.0 Neut # 5.2 Lymph # 1.3 [place] # 0.6 Eos # 0.2 Baso # 0.0 Sodium 141 Potassium 3.5 Chloride 106 Carbon Dioxide 27 Anion Gap 11.5 BUN 19 H Creatinine 1.31 H Estimated GFR (MDRD) 53.00 BUN/Creatinine Ratio 14.50 Glucose 130 H Calcium 9.0 Total Bilirubin 0.5 AST 18 ALT 20 Alkaline Phosphatase 50 L Total Creatine Kinase 63 Troponin I 0.0410 Total Protein 6.7 Albumin 3.5 Globulin 3.2 Albumin/Globulin Ratio 1.09 Amylase 38 Lipase 29 Urine Color Urine Clarity Urine pH Ur Specific [place] Urine Protein Urine Glucose (UA) Urine Ketones Urine Blood Urine Nitrite Urine Bilirubin Urine Urobilinogen Ur Leukocyte Esterase Urine Microscopic RBC Urine Microscopic WBC Ur Squamous Epith Cells Influenza A (Rapid) Influenza B (Rapid) 10/23/17 10/23/17 12:22 13:06 WBC RBC Hgb Hct MCV MCH MCHC RDW Coeff of [place]yrus Plt Count Immature Gran % (Auto) Neut % (Auto) Lymph % (Auto) [place] % (Auto) Eos % (Auto) Baso % (Auto) Immature Gran # (Auto) Neut # Lymph # [place] # Eos # Baso # Sodium Potassium Chloride Carbon Dioxide Anion Gap BUN Creatinine Estimated GFR (MDRD) BUN/Creatinine Ratio Glucose Calcium Total Bilirubin AST ALT Alkaline Phosphatase Total Creatine Kinase Troponin I Total Protein Albumin Globulin Albumin/Globulin Ratio Amylase Lipase Urine Color Yellow Urine Clarity Clear Urine pH 7.0 Ur Specific [place] 1.015 Urine Protein Trace Urine Glucose (UA) Negative Urine Ketones Negative Urine Blood Trace-intact Urine Nitrite Negative Urine Bilirubin Negative Urine Urobilinogen 0.2 Ur Leukocyte Esterase Negative Urine Microscopic RBC 0-2 Urine Microscopic WBC 0-2 Ur Squamous Epith Cells Not present Influenza A (Rapid) Negative by naat Influenza B (Rapid) Negative by naat Orders Category Date Time Status EKG-(ED ONLY) Stat CARDIO 10/23/17 11:37 Completed NEBULIZER TREATMENT Routine CARDIO 10/23/17 13:38 Active NEBULIZER TREATMENT Stat CARDIO 10/23/17 12:06 Completed AMYLASE Stat LAB 10/23/17 12:15 Completed CBC W/ AUTO DIFF Stat LAB 10/23/17 12:15 Completed COMPREHENSIVE METABOLIC PANEL Stat LAB 10/23/17 12:15 Completed CREATINE KINASE Stat LAB 10/23/17 12:15 Completed FLU A/B MOLECULAR Stat LAB 10/23/17 12:22 Completed LIPASE Stat LAB 10/23/17 12:15 Completed RAPID STREP SCREEN [MOLECULAR GROUP A STREP] Stat LAB 10/23/17 12:22 Completed TROPONIN I Stat LAB 10/23/17 12:15 Completed URINALYSIS C & S IF INDICATED Stat LAB 10/23/17 13:06 Completed Azithromycin [Zithromax] MEDS 10/23/17 13:35 Discontinued 500 mg PO ONCE STA Ceftriaxone Sodium [Rocephin] 1 gm MEDS 10/23/17 13:35 Discontinued 0.9 % Sodium Chloride [Sodium Chloride] 50 ml IV ONCE Ipratropium/Albuterol Neb [Duoneb] MEDS 10/23/17 12:05 Discontinued 1 vial NEB ONCE STA Levalbuterol HCl [Xopenex 1.25 mg] MEDS 10/23/17 18:00 Active 1 vial NEB RTQ6H Methylprednisolone Sod Succ/Pf [Solu-Medrol 125 mg] MEDS 10/23/17 13:35 Discontinued 125 mg IVP ONCE STA Methylprednisolone Sod Succ/Pf [Solu-Medrol 125 mg] MEDS 10/23/17 21:00 Active [address] ABDOMEN/PELVIS WO CONTRAST Stat RADS 10/23/17 11:[address] CHEST W/O CONTRAST Stat RADS 10/23/17 11:52 Completed Medications Generic Name Dose Route Start Last Admin Trade Name Freq PRN Reason Stop Dose Admin Acetaminophen 650 mg 10/23/17 14:03 Tylenol PO Q4H PRN Mild pain or Fever Acetaminophen/Hydrocodone Bitart 1 tab 10/23/17 14:03 10/23/17 15:29 [place] 5-325 PO 1 tab Q6H PRN Administration Moderate pain Sodium Chloride 1,000 mls @ 100 mls/hr 10/23/17 14:30 10/23/17 15:31 Sodium Chloride IV 100 mls/hr .Q10H PRUDENCIO Administration Levalbuterol HCl 1 vial 10/23/17 18:00 Xopenex 1.25 Mg NEB RTQ6H PRUDENCIO Methylprednisolone Sodium Succinate 125 mg 10/23/17 21:00 Solu-Medrol 125 Mg IVP Q8HR PRUDENCIO Morphine Sulfate 2 mg 10/23/17 14:03 10/23/17 15:43 Morphine 2 Mg/Ml Syringe IVP 2 mg Q4H PRN Administration Severe Pain Non-Formulary Medication 55 mg 10/23/17 21:00 Ferrous Fumarate [Iron] PO BID [facility] Ondansetron HCl 4 mg 10/23/17 14:03 Zofran 4 Mg/2 Ml IVP Q6H PRN nasuea or vomiting Simvastatin 40 mg 10/23/17 21:00 Zocor PO BEDTIME PRUDENCIO Sotalol HCl 40 mg 10/23/17 21:00 Betapace PO BID PRUDENCIO Discontinued Medications Generic Name Dose Route Start Last Admin Trade Name Freq PRN Reason Stop Dose Admin Albuterol/Ipratropium 1 vial 10/23/17 12:05 10/23/17 12:17 Duoneb NEB 10/23/17 12:06 1 vial ONCE STA Administration Azithromycin 500 mg 10/23/17 13:35 10/23/17 14:03 Zithromax PO 10/23/17 13:36 500 mg ONCE STA Administration Ceftriaxone Sodium 1 gm/ 50 mls @ 75 mls/hr 10/23/17 13:35 10/23/17 14:03 Sodium Chloride IV 10/23/17 14:14 75 mls/hr ONCE STA Administration Methylprednisolone Sodium Succinate 125 mg 10/23/17 13:35 10/23/17 14:03 Solu-Medrol 125 Mg IVP 10/23/17 13:36 125 mg ONCE STA Administration Vital Signs: Temp Pulse Resp BP Pulse Ox 10/23/17 11:37 97.2 F L 79 18 139/77 97 Departure - Departure Time of Disposition: 14:10 Disposition: ADMITTED INPATIENT Discharge Problem: Abdominal pain Acute bronchitis Qualifiers: Bronchitis organism: other organism Qualified Code(s): J20.8 - Acute bronchitis due to other specified organisms Condition: Stable Pt referred to PMD for follow-up: No IPMP verified?: No Allergies/Adverse Reactions: Allergies No Known Allergies Allergy (Verified 10/23/17 11:45) Home Medications: Ambulatory Orders Aspirin [Aspirin EC] 81 mg PO DAILY 05/31/13 Clopidogrel Bisulfate [Clopidogrel] 75 mg PO DAILY 05/31/13 Ferrous Fumarate [Iron] 55 mg PO BID 05/31/13 Lisinopril/Hydrochlorothiazide [Lisinopril-Hctz 10-12.5 mg Tab] 0.5 tab PO DAILY 05/31/13 [place]-3 Fatty Acids [Fish Oil] 600 mg PO DAILY 05/31/13 Pantoprazole Sodium [Protonix] 40 mg PO QDAC 05/31/13 Paroxetine HCl [Paxil] 20 mg PO DAILY 05/31/13 Potassium Chloride [Klor-Con 8 Meq] 8 meq PO DAILY 05/31/13 Simvastatin [Zocor] 40 mg PO BEDTIME 05/31/13 Sotalol HCl [Sotalol] 40 mg PO BID 05/31/13 Linagliptin [Tradjenta] 5 mg PO DAILY 11/19/16
[2017-10-23 11:47] VITALS: BP 139/77; TEMP 97.2; BMI 21.2
[2017-10-23] MEDS ORDERED: DUONEB NEB STA (12:05)
--- NOTE | 2017-10-23 13:06 | CT ---
EXAM: CT scan of the abdomen and pelvis without contrast HISTORY: Lower abdominal pain TECHNIQUE: Imaging of the abdomen and pelvis was performed without contrast. 3 mm thin axial images and coronal and sagittal reconstructions were provided for interpretation. Comparison CT scan of the abdomen and pelvis dated 11/20/2016. FINDINGS: The liver, spleen, pancreas, adrenal glands and kidneys appear normal. The proximal urete rs are normal size. The small and large bowel loops are normal in caliber. There is no free air. N o acute abnormalities are seen within the anterior abdominal wall. There is mild dilatation of the in frarenal abdominal aorta measuring 3.0 cm AP, 3.0 cm transverse. The helical images obtained through the pelvis demonstrate a normal appearance of the rectum, urinary bladder. There is no free fluid seen within the pelvis. There is diffuse diverticular disease of t he sigmoid colon without acute inflammation. The appendix appears normal. No retroperitoneal abnorm alities are seen. Small bilateral pleural effusions are identified. The heart is normal size. No l ytic or blastic lesions are seen within the osseous structures. IMPRESSION: There is no small bowel obstruction. Diffuse diverticular disease of the sigmoid colon without acute inflammation. Interval development of small bilateral pleural effusions. Mild dilatation of the infrarenal abdominal aorta measuring 3 cm diameter. Continued follow-up evalu ation is recommended.
--- NOTE | 2017-10-23 13:07 | CT ---
EXAM: CT scan of the chest without contrast HISTORY: Cough, congestion. TECHNIQUE: Helical imaging of the chest was performed without contrast. 5 mm thin axial images and coronal and sagittal images were provided for interpretation. Comparison CT scan of the chest dated 05/27/2017. FINDINGS: The heart is normal size. Small bilateral pleural effusions are identified. There is flui d seen within the interstitium of the lungs. The heart is normal size. No mediastinal masses are se en. There is atherosclerotic calcification of the thoracic aorta and coronary arteries. No lytic or blastic lesions are seen within the osseous structures. IMPRESSION: Interval development of small bilateral pleural effusions. There is fluid in the interstitium of the lungs and this may represent interstitial edema.
[2017-10-23] MEDS ORDERED: ROCEPHIN 1 GM in SODIUM CHLORIDE 50 ML IV STA (13:35)
[2017-10-23] MEDS ORDERED: ZITHROMAX PO STA (13:35)
[2017-10-23] MEDS ORDERED: SOLU-MEDROL 125 MG IVP STA (13:35)
[2017-10-23] MEDS ORDERED: ROCEPHIN ONE (13:55)
[2017-10-23] MEDS ORDERED: TYLENOL PO PRN (14:03)
[2017-10-23] MEDS ORDERED: MORPHINE 2 MG/ML SYRINGE IVP PRN (14:03)
[2017-10-23] MEDS ORDERED: ZOFRAN 4 MG/2 ML IVP PRN (14:03)
[2017-10-23] MEDS ORDERED: NORCO 5-325 PO PRN (14:03)
[2017-10-23] MEDS ORDERED: SODIUM CHLORIDE 1,000 ML IV SCH (14:30)
[2017-10-23] MEDS: ANECTINE ONE (16:00)
[2017-10-23] MEDS ORDERED: NORCURON IVP STA (16:00)
[2017-10-23] MEDS ORDERED: ANECTINE IVP STA (16:00)
[2017-10-23] MEDS ORDERED: VERSED ONE (16:00)
[2017-10-23] MEDS ORDERED: PHENYLEPHRINE IVP STA (16:00)
[2017-10-23] MEDS ORDERED: VERSED IVP STA (16:00)
[2017-10-23] MEDS: NORCURON ONE (16:10)
--- NOTE | 2017-10-23 16:20 | ED.PDOC ---
Procedures - Intubation Indication: Present: Respiratory Insufficiency Time of Intubation: 16:00 Medications: Yes: Norcuron, Succinylcholine, Versed (see nsg notes times and dosages) Type of Tube Used: Endotracheal Tube Size: 7.5 Cricoid Pressure Used: Yes Tube Smith Used: Yes Position of Tube at Lip: 20cm Number of Attempts: 1 Suction Used: No Glidescope Used: No CO2 Detector Used: Yes Lung Sounds Equal Bilaterally: Yes Intubation Complications: Present: No complications, Apparent aspiration Tube Inserted By: Dr Coleman/Alonzo Heard CRNA Tube Placement Verified by X-ray: Yes - IV/Art Line Insertion Location: LT radial Type of Line: Arterial Line (Art Stick for ABGs) Conscious Sedation - Pre-op Assessment Weight: 170 lb Surgical History: OPEN HEART 89. STROKE YEAR UNKNOWN. CATARACT - Medical History Past Medical History: Hypertension, Diabetes, Cancer, CVA, [place], A-FIb, CAD - Physical Exam Heart Rate/Rhythm: Regular Rhythm
[2017-10-23] MEDS ORDERED: LASIX IVP SCH (16:30)
[2017-10-23] MEDS ORDERED: DOPAMINE 400 MG in PREMIX 250 ML D5W 1 BAG IV SCH (17:30)
--- NOTE | 2017-10-23 17:41 | DI ---
EXAM: Single view chest COMPARISON: Chest Xray from 11/19/2016 HISTORY: Respiratory arrest FINDINGS: There is extensive pulmonary edema seen bilaterally. Cardiac and mediastinal silhouettes show no acute abnormality. There has been prior sternotomy. No acute soft tissue or osseous abnormali ties. There is an endotracheal tube in place with the tip about 6 cm above the stephan. IMPRESSION: 1. Pulmonary edema with endotracheal tube as described.
[2017-10-23] MEDS ORDERED: XOPENEX 1.25 MG NEB SCH (18:00)
[2017-10-23] MEDS ORDERED: SOLU-MEDROL 125 MG IVP SCH (21:00)
[2017-10-23] MEDS ORDERED: BETAPACE PO SCH (21:00)
[2017-10-23] MEDS ORDERED: ZOCOR PO SCH (21:00)
[2017-10-23] MEDS ORDERED: FERROUS FUMARATE 55 MG PO SCH (21:00)
[2017-10-26] MEDS: ANECTINE ONE (12:05)
[2017-10-26] MEDS: NORCURON ONE (12:07)
== END 2017-10-23 17:10 | disposition short-term general hospital (02) | DRG 202 ==
LOC: ED 11:35 → MEDSURG A 13:45
PROVIDERS: ADMIT Internal Medicine; ATTEND Internal Medicine
DX: J40 Bronchitis, not specified as acute or chronic (principal); I63.9 Cerebral infarction, unspecified; R10.32 Left lower quadrant pain; R10.31 Right lower quadrant pain; R06.89 Other abnormalities of breathing; I10 Essential (primary) hypertension; E11.9 Type 2 diabetes mellitus without complications; Z85.9 Personal history of malignant neoplasm, unspecified; I25.2 Old myocardial infarction; Z95.1 Presence of aortocoronary bypass graft; I48.91 Unspecified atrial fibrillation; I25.10 Atherosclerotic heart disease of native coronary artery without angina pectoris
CPT/HCPCS: 36415; 80053; 81001; 82150; 82550; 82803; 83690; 84484; 85025; 87502; 87651; 93005; 93010; 94002; 94640; 96365; 96375; 99285

== ENCOUNTER 2018-09-20 02:00 | Inpatient (IN) | payer OTHER ==
--- NOTE | 2018-09-20 02:09 | ED.PDOC ---
General ED Provider: Dr. CHARLES MENA MD Chief Complaint: Abscess Stated Complaint: abdomen infection Time Seen by Physician: 02:05 Mode of Arrival: Ambulance Information Source: Patient Exam Limitations: No limitations Primary Care Provider: IADLIA LAWSON Nursing and Triage Documentation Reviewed and Agree: Yes Does patient meet sepsis criteria?: No If yes, has appropriate treatment been initiated?: Yes System Inflammatory Response Syndrome: Not Applicable Sepsis Protocol: For patient's 13 years and over: Temp is 96.8 and below OR 101 and greater Pulse >90 BPM Resp >20/minute Acutely Altered Mental Status Are patient's symptoms suggestive of a new infection, such as: -Pneumonia -Skin, Soft Tissue -Endocarditis -UTI -Bone, Joint Infection -Implantable Device -Acute Abdominal Infection -Wound Infection -Meningitis -Blood Stream Catheter Infection -Unknown Review of Systems - Review Of Systems Constitutional: Reports: No symptoms Eyes: Reports: No symptoms Ears, Nose, Mouth, Throat: Reports: No symptoms Respiratory: Reports: No symptoms Cardiac: Reports: No symptoms GI: Reports: No symptoms : Reports: No symptoms Musculoskeletal: Reports: No symptoms Skin: Reports: Lesions (abdominal 10 x 10 cm fluctuant subdermal mass) Neurological: Reports: No symptoms Endocrine: Reports: No symptoms Hematologic/Lymphatic: Reports: No symptoms All Other Systems: Reviewed and Negative Past Medical History - Past Medical History Endocrine: Reports: DM 2 Cardiovascular: Reports: CAD, MO, Hypertension, A-Fib Respiratory: Reports: None Hematological: Reports: None Gastrointestinal: Reports: None Genitourinary: Reports: None Neuro/Psych: Reports: CVA Musculoskeletal: Reports: None Cancer: Reports: Other - Surgical History General Surgical History: Reports: CABG - Family History Family History: Reports: Unknown - Social History Smoking Status: Former smoker Hx Substance Use: No Alcohol Screening: None Physical Exam - Physical Exam Appearance: Thin Ill-appearing: Mild Pain Distress: Mild Eyes: IZABELA, EOMI, Conjunctiva clear ENT: Ears normal, Nose normal, Oropharynx normal Neck: Supple Respiratory: Airway patent Cardiovascular: RRR GI/: Tender, Mass Musculoskeletal: Normal strength, ROM intact, No edema, No calf tenderness Skin: Warm, Dry, Normal color Neurological: Sensation intact, Motor intact, Reflexes intact, Cranial nerves intact, Alert, Oriented Psychiatric: Affect appropriate, Mood appropriate Critical Care Note - Critical Care Note Total Time (mins): 0 Course - Course Hematology/Chemistry: 09/20/18 02:20 09/20/18 02:20 Orders, Labs, Meds: Lab Review 09/20/18 09/20/18 02:20 02:20 WBC 10.17 RBC 3.95 L Hgb 11.8 L Hct 34.8 L MCV 88.1 MCH 29.9 MCHC 33.9 RDW Coeff of Cyrus 13.2 Plt Count 168 Immature Gran % (Auto) 0.3 Neut % (Auto) 76.6 Lymph % (Auto) 12.2 [place] % (Auto) 9.3 Eos % (Auto) 1.3 Baso % (Auto) 0.3 Immature Gran # (Auto) 0.0 Neut # (Auto) 7.8 H Lymph # (Auto) 1.2 [place] # (Auto) 1.0 Eos # (Auto) 0.1 Baso # (Auto) 0.0 Sodium 141.7 Potassium 2.97 L Chloride 99.9 Carbon Dioxide 32.4 H Anion Gap 12.37 BUN 34.2 H Creatinine 1.39 H Estimated GFR (MDRD) 50.00 BUN/Creatinine Ratio 24.60 Glucose 135.9 H Calcium 8.85 Orders Category Date Time Status IV [ED IV/MEDIPORT/POWERPORT] .ONCE EMERGENCY 09/20/18 02:11 Active BMP [BASIC METABOLIC PANEL] Stat LAB 09/20/18 02:20 Completed CBC W/ AUTO DIFF Stat LAB 09/20/18 02:20 Completed 0.9 % Sodium Chloride [Saline Flush] MEDS 09/20/18 02:11 Ordered 1 syr IVF PRN PRN Ceftriaxone Sodium [Rocephin] MEDS 09/20/18 02:26 Discontinued 2 gm .ROUTE .STK-MED ONE Ceftriaxone Sodium [Rocephin] 2 gm MEDS 09/20/18 02:12 Active 0.9 % Sodium Chloride [Sodium Chloride] [address] ABDOMEN/PELVIS WO CONTRAST Stat RADS 09/20/18 02:07 Taken Medications Generic Name Dose Route Start Last Admin Trade Name Freq PRN Reason Stop Dose Admin Ceftriaxone Sodium 2 gm/ 50 mls @ 50 mls/hr 09/20/18 02:12 09/20/18 02:44 Sodium Chloride IV 09/20/18 03:11 50 mls/hr ONCE STA Administration Sodium Chloride 1 syr 09/20/18 02:11 Saline Flush IVF PRN PRN To flush IV Vital Signs: Temp Pulse Resp BP Pulse Ox 09/20/18 02:03 98.9 F 76 20 147/67 H 96 Departure - Departure Time of Disposition: 03:05 Disposition: ADMITTED INPATIENT Discharge Problem: Abdominal wall cellulitis Condition: Good Pt referred to PMD for follow-up: Yes IPMP verified?: No Allergies/Adverse Reactions: Allergies No Known Allergies Allergy (Verified 10/23/17 11:45) Home Medications: Ambulatory Orders Aspirin [Aspirin EC] 81 mg PO DAILY 05/31/13 Clopidogrel Bisulfate [Clopidogrel] 75 mg PO DAILY 05/31/13 Lisinopril/Hydrochlorothiazide [Lisinopril-Hctz 10-12.5 mg Tab] 0.5 tab PO DAILY 05/31/13 [place]-3 Fatty Acids [Fish Oil] 600 mg PO DAILY 05/31/13 Pantoprazole Sodium [Protonix] 40 mg PO QDAC 05/31/13 Paroxetine HCl [Paxil] 20 mg PO DAILY 05/31/13 Potassium Chloride [Klor-Con 8 Meq] 8 meq PO DAILY 05/31/13 Atorvastatin Calcium [Lipitor] 20 mg PO BEDTIME 09/20/18 Furosemide 40 mg PO DAILY 09/20/18 Insulin Detemir [Levemir] 10 units SUBCUT BEDTIME 09/20/18 Insulin Lispro [Humalog] 1 unit SUBCUT ACHS 09/20/18 Polyethylene Glycol 3350 [Miralax] 17 gm PO DAILY 09/20/18 Tamsulosin HCl [Flomax] 0.4 mg PO DAILY 09/20/18 Disposition Discussed With: Patient, Other (Dr Lawson)
[2018-09-20] MEDS ORDERED: ROCEPHIN 2 GM in SODIUM CHLORIDE 50 ML IV STA (02:12)
[2018-09-20] MEDS ORDERED: ROCEPHIN ONE (02:26)
--- NOTE | 2018-09-20 02:55 | CT ---
EXAM: CT abdomen pelvis without intravenous contrast 09/20/2018. Sagittal and coronal reformatted i mages obtained HISTORY: Abdominal abscess COMPARISON: 10/23/2017 FINDINGS: The liver and gallbladder show no acute abnormality. The adrenal glands and kidneys show no acute abnormality. Technically limited evaluation of solid or shannon pathology due to lack of intravenous contrast. Pyelonephritis not excluded. The spleen and pancreas show no acute abnormality. There is no evidence of bowel obstruction. Edna l appendix. Wall thickening of the urinary bladder with perivesicular stranding. Correlate for cyst itis. No free air or free fluid. Diverticulosis without diverticulitis. Atherosclerotic vascular disease. Anterior abdominal subcutaneous stranding and skin thickening. This can be seen on axial series im age 76. This likely represents edema/cellulitis. There is no organized or drainable fluid collectio n. This process remains within the subcutaneous fat. Erosions are present at the inferior aspect of L1 as well as the adjacent superior endplate of L2. T hese findings are new as compared to 10/23/2017. This could represent large Schmorl's nodes. There i s associated endplate sclerosis. There has been loss of disc height at this level since the prior st udy. This could represent diskitis/osteomyelitis. MRI without with contrast could be obtained. Thi s process can be seen on coronal series image 58. IMPRESSION: Number 1. Wall thickening of the urinary bladder. Correlate for cystitis. Pyelonephritis cannot be exclud ed. 2. Stranding in the subcutaneous fat adjacent skin thickening. This likely represents the superfici al cellulitis. No organized drainable fluid collection. 3. There are new endplate erosions at the L1-L2 level. There is new loss of disc height with adjace nt surrounding endplate sclerosis. This could represent large Schmorl's nodes however diskitis/osteo myelitis could give this appearance. MRI with contrast could be obtained for further evaluation.
[2018-09-20 04:57] VITALS: BMI 22.0
[2018-09-20] MEDS ORDERED: HUMALOG SUBCUT SCH (06:30)
[2018-09-20] MEDS ORDERED: KLOR-CON 8 MEQ PO SCH (08:00)
[2018-09-20] MEDS: PAXIL PO SCH (08:50)
[2018-09-20] MEDS: PLAVIX PO SCH (08:51)
[2018-09-20] MEDS: BETAPACE PO SCH ×2 (08:51→21:39)
[2018-09-20] MEDS: PROTONIX PO SCH (08:52)
[2018-09-20] MEDS: FLOMAX PO SCH (08:52)
[2018-09-20] MEDS: HYDROCHLOROTHIAZIDE PO SCH ×2 (08:52→21:38)
[2018-09-20] MEDS: ZESTRIL PO SCH ×2 (08:52→21:39)
[2018-09-20] MEDS: ASPIRIN EC PO SCH (08:53)
[2018-09-20] MEDS: OMEGA-3 FISH OIL PO SCH (08:53)
[2018-09-20] MEDS: MIRALAX PO SCH (08:54)
[2018-09-20] MEDS ORDERED: FATTY ACIDS PO SCH (09:00)
[2018-09-20] MEDS ORDERED: OMEGA PO SCH (09:00)
[2018-09-20] MEDS: CLEOCIN 600 MG in SODIUM CHLORIDE 50 ML IV SCH ×3 (11:29→21:38)
[2018-09-20] MEDS: K-DUR PO SCH ×3 (12:45→21:39)
[2018-09-20] MEDS: HUMALOG SUBCUT PRN (12:57)
--- NOTE | 2018-09-20 14:43 | HP ---
DATE OF SERVICE: 09/20/18 REASON FOR HOSPITALIZATION/HISTORY OF PRESENT ILLNESS: This is a 77 year old white male who presented to the emergency room complaining of a reddened area infected on his abdomen. PAST MEDICAL HISTORY: Coronary artery disease Hypertension GERD Anxiety Dyslipidemia Leg edema Diabetes mellitus type 2 BPH COPD Smoker History of CVA PAST SURGICAL HISTORY: CABG REVIEW OF SYSTEMS: CONSTITUTIONAL: No night sweats. No fatigue, malaise, lethargy. Low grade fever. HEENT: Eyes: No visual changes. No eye pain. No eye discharge. ENT: No runny nose. No epistaxis. No sinus pain. No sore throat. No odynophagia. No ear pain. No congestion. RESPIRATORY: No cough, no congestion. No hemoptysis. No shortness of breath. CARDIOVASCULAR: No angina symptoms. No CHF symptoms. No atypical chest pain for CAD. No palpitations. No PND. No orthopnea. GASTROINTESTINAL: No abdominal pain. No nausea or vomiting. No diarrhea or constipation. No hematemesis. No hematochezia. GENITOURINARY: No urgency. No frequency. No dysuria. No hematuria. No obstructive symptoms. No discharge. No pain. No significant abnormal bleeding. MUSCULOSKELETAL: No musculoskeletal pain. No joint swelling. No arthritis. Weakness. NEUROLOGICAL: No headache. No neck pain. No syncope. No seizures. No dizziness. PSYCHIATRIC: Not anxious. No depression. No suicidal thoughts. No homicidal thoughts. SKIN: No rash. No lesions. No wounds. Mass on Abdomen. ENDOCRINE: No unexplained weight loss. No weight gain. HEMATOLOGIC/LYMPHATIC: No anemia. No purpura. No petechiae. No prolonged or excessive bleeding. No palpable lymph nodes. PERSONAL/FAMILY/SOCIAL HISTORY: The patient quit smoking within the past 6 months, no alcohol or illicit drug use. He is . MEDICATIONS: Potassium Chloride 8meq PO daily Fish Oil 600mg PO daily Aspirin 81mg PO daily Clopidogrel 75mg Po daily Paxil 20mg PO daily Lisinopril one tablet PO twice a day Protonix 40mg PO QDAC Furosemide 40mg PO daily Lipitor 20mg PO bedtime Flomax 0.4mg PO daily Miralax 17 gram PO daily Levemir 10 units SUBCUT ACHS Humalog 100 unit/ml vital one unit SUBCUT ACHS Betapace 40mg PO twice a day ALLERGIES: No known allergies PHYSICAL EXAMINATION: GENERAL: The patient is alert and oriented times three. VITAL SIGNS: Temperature 98.9, heart rate 76, respiratory rate 20, blood pressure 147/67 and pulse ox 96%. HEENT: Head normocephalic, atraumatic. Eyes: Extraocular muscles are intact. Pupils are equal, round and reactive to light and accommodation. Ears: No lesions. Nose appeared normal. Throat: No exudate or erythema. NECK: Supple. No JVD, no carotid bruit. No lymphadenopathy or thyromegaly. LUNGS: Diminished breath sounds bilaterally. Clear to auscultation. Percussion note normal. Chest symmetrical. HEART: S1, S2, no S3. No murmurs. No cyanosis or clubbing. No ascites. Pulses: Dorsalis pedis and posterior tibial pulses +1 to +2 bilaterally. ABDOMEN: Soft. Nontender. Bowel sounds active. No CVA tenderness. No mass felt. 10x10 fluctuant mass on the abdomen with purulent drainage. EXTREMITIES: No edema. Full range of motion of all extremities, equal. NEUROLOGIC: No focal deficit. Cranial nerves II through XII are grossly intact. No headache, no double vision or headache. SKIN: Not dry. Intact. Turgor - normal. LYMPHATIC: No palpable lymph nodes/no lymphedema. MUSCULOSKELETAL: Normal joints with no swelling. Muscle tone is normal. LABS: WBC 10.17, hgb 11.8, hct 34.8, plt count 168, sodium 141, potassium 2.97, BUN 34 , creatinine 1.39, glucose 135, CT of the abdomen shows wall thickening of the bladder, stranding in the subcutaneous fat adjacent skin thickening likely represents superficial cellulitis of the abdomen. No organizable drainable fluid collection. ASSESSMENT: 1. Abdominal cellulitis 2. Hypokalemia 3. COPD 4. Coronary artery disease 5. Former smoker PLAN: 1. Will admit 2. Routine telemetry orders 3. CBC and CMP daily 4. Continue all home medications 5. Rocephin 1 gram IV daily 6. Clindamycin 600mg IV Q 8 hours 7. Continue all home medication s 8. Potassium 40meq PO three times a day 9. Regular diet 10.Wound Culture 11.Tylenol as needed for fever Will follow closely. TIME SPENT: More than 70 minutes. MTDD
[2018-09-20] MEDS ORDERED: LEVEMIR SUBCUT SCH (21:00)
[2018-09-20] MEDS: ROCEPHIN 1 GM in SODIUM CHLORIDE 50 ML IV SCH (21:38)
[2018-09-20] MEDS: LIPITOR PO SCH (21:39)
[2018-09-20] MEDS: LEVEMIR SUBCUT SCH (21:40)
[2018-09-21] MEDS: CLEOCIN 600 MG in SODIUM CHLORIDE 50 ML IV SCH ×3 (05:31→22:25)
[2018-09-21] MEDS: PROTONIX PO SCH (05:57)
[2018-09-21] MEDS: LASIX TAB PO SCH (05:57)
[2018-09-21] MEDS: OMEGA-3 FISH OIL PO SCH (08:39)
[2018-09-21] MEDS: PLAVIX PO SCH (08:39)
[2018-09-21] MEDS: MIRALAX PO SCH (08:39)
[2018-09-21] MEDS: PAXIL PO SCH (08:39)
[2018-09-21] MEDS: HYDROCHLOROTHIAZIDE PO SCH ×2 (08:39→21:20)
[2018-09-21] MEDS: BETAPACE PO SCH ×2 (08:40→21:20)
[2018-09-21] MEDS: ASPIRIN EC PO SCH (08:40)
[2018-09-21] MEDS: K-DUR PO SCH (08:40)
[2018-09-21] MEDS: ZESTRIL PO SCH ×2 (08:40→21:20)
[2018-09-21] MEDS: FLOMAX PO SCH (08:41)
--- NOTE | 2018-09-21 09:37 | PCM.PROG ---
Attending Provider: ATTENDING PROVIDER: Dr. IDALIA LAWSON DATE OF SERVICE: 09/21/18 SUBJECTIVE: This 77 year old WHITE/ M was hospitalized 09/20/18 with cellulitis of the periumbilical area that seems to be resolving. He has been feeling a lot better. The area is becoming localized with some drainage, much less in size. The patient is afebrile. He has dysarthria but seems to be in no distress. No fever, no chills. REVIEW OF SYSTEMS: CONSTITUTIONAL: No night sweats. No fatigue, malaise, lethargy. No fever or chills. HEENT: Eyes: No visual changes. No eye pain. No eye discharge. ENT: No runny nose. No epistaxis. No sinus pain. No odynophagia. No congestion. RESPIRATORY: No cough, no congestion. No hemoptysis. No shortness of breath. CARDIOVASCULAR: No angina symptoms. No CHF symptoms. No atypical chest pain for CAD. No palpitations. No orthopnea.. GASTROINTESTINAL: No abdominal pain. No nausea or vomiting. No diarrhea or constipation. No hematemesis. No hematochezia. GENITOURINARY: No urgency. No frequency. No dysuria. No hematuria. No obstructive symptoms. No discharge. No pain. No significant abnormal bleeding. MUSCULOSKELETAL: No musculoskeletal pain; no joint swelling. NEUROLOGICAL: Awake, alert, oriented to time, place and person. No headache. No neck pain. No syncope. No seizures. No dizziness. PSYCHIATRIC: Not anxious. No depression. No suicidal thoughts. No homicidal thoughts. SKIN: Positive for cellulitis on the abdominal wall, periauricular area, which has decreased in size. No rash. No lesions. ENDOCRINE: No unexplained weight loss. No weight gain. HEMATOLOGIC/LYMPHATIC: No anemia. No purpura. No petechiae. No prolonged or excessive bleeding. No palpable lymph nodes. PHYSICAL EXAMINATION: GENERAL: The patient is awake, alert and oriented, sitting in bed in no distress. VITAL SIGNS: Temperature 97.7 F, Pulse 62, Respiratory Rate 16, BP 109/63, Pulse Ox 94% HEENT: Head normocephalic, atraumatic. Eyes: Extraocular muscles are intact. Pupils are equal, round and reactive to light and accommodation. Ears: No lesions. Nose appeared normal. Throat: No exudate or erythema. NECK: Supple. No JVD, no carotid bruit. No lymphadenopathy or thyromegaly. LUNGS: Clear to auscultation. Percussion note normal. Chest symmetrical. HEART: S1, S2, no S3. No murmurs. No cyanosis or clubbing. No ascites. Pulses: Dorsalis pedis and posterior tibial pulses +1 to +2 both sides. ABDOMEN: Area of cellulitis on abdominal wall, periauricular area is resolving. Soft. Non-tender. Bowel sounds active. No CVA tenderness. No mass felt. EXTREMITIES: No edema. Full range of motion of all extremities, equal. NEUROLOGIC: No focal deficit. Cranial nerves II through XII are grossly intact. No headache, no double vision or headache. SKIN: Warm and dry. Intact. Turgor-normal. LYMPHATIC: No palpable lymph nodes/no lymphedema. MUSCULOSKELETAL: Normal joints with no swelling. Muscle tone is normal. LAB REVIEW: 09/21/18 06:40 09/21/18 06:40 09/21/18 06:40: Sodium 143.9, Potassium 3.81, Chloride 105.6, Carbon Dioxide 28.7, Anion Gap 13.41, BUN 30.5 H, Creatinine 1.45 H, Estimated GFR (MDRD) 47.00 , BUN/Creatinine Ratio 21.03, Glucose 124.2 H, Calcium 8.53, Total Bilirubin 0.36, AST 14.1 L, ALT 10.3, Alkaline Phosphatase 96.9, Total Protein 6.78, Albumin 3.57, Globulin 3.21, Albumin/Globulin Ratio 1.11 09/21/18 06:40: WBC 8.73, RBC 3.89 L, Hgb 11.5 L, Hct 34.2 L, MCV 87.9, MCH 29.6 , MCHC 33.6, RDW Coeff of Cyrus 13.2, Plt Count 187, Immature Gran % (Auto) 0.2, Neut % (Auto) 74.5, Lymph % (Auto) 14.0, [place] % (Auto) 8.8, Eos % (Auto) 2.2, Baso % (Auto) 0.3, Immature Gran # (Auto) 0.0, Neut # (Auto) 6.5, Lymph # (Auto ) 1.2, [place] # (Auto) 0.8, Eos # (Auto) 0.2, Baso # (Auto) 0.0 ASSESSMENT: 1. Cellulitis of abdominal wall resolving. Will have Dr. Sena see in consult for possible incision and drainage. 2. Hypokalemia, new problem seems to have resolved. PLAN: 1. Continue antibiotics. 2. Cardiovascular status and neurological status are stable. 3. Dr. Sena requested to consult. Plan and coordination of the patient's care discussed in the presence of Medical Service Technician and nurse. CONDITION: Stable SCRIBED BY: Macie VITAL scribed while in presence of service performed by Dr. IDALIA LAWSON on 09/21/18 ([id number])
--- NOTE | 2018-09-21 11:27 | CONS ---
DATE OF CONSULTATION: 09/21/18 HISTORY OF PRESENT ILLNESS: 77 year old male patient of Dr. Emery was seen by me at his request about 9:35 this morning. The patient claimed to have this problem about 5 days prior to this day and it was small and had spread. There was some drainage. No significant pain. The patient was seen at the emergency room yesterday and subsequently admitted. The patient's vital signs in the emergency room consisted of temperature 98.9, pulse 76, respiratory rate 20, oxygen saturation 96% at room air, Blood pressure 147/67. WBC was normal but no procalcitonin was requested. EGFR was 50 and his BUN was 34.2. The patient's EGFR probably maybe normal. His BUN did come down to 30.5 and the EGFR is 47 with creatinine rising to 1.49. REVIEW OF SYSTEMS: CONSTITUTIONAL: The patient denied any fever, chills or any significant fatigue. PANEL BEATER: Denies any headaches, dizziness, Syncopal episode or seizure events. VISUAL: Negative AUDITORY: Hearing is decreased but no tinnitus. No pain or drainage. RESPIRATORY: No cough, no history of hemoptysis. Shortness of breath with exertion. CARDIOVASCULAR: No chest at this time. No tightness and no diaphoresis GI: No nausea, anorexia or dysphagia. Denies any abdominal pain but does have something on the abdominal wall. : No dysuria INTEGUMENT: Redness in the anterior abdomen about mid portion which is indurated with some surrounding erythema around the indurated area. There are three opens which are rounded. The area is non fluctuant. ASSESSMENT: 1. Carbuncle PLAN: 1. Continue the antibiotic for now. 2. This patient probably should be hydrated. 3. We will get a urinalysis 4. Procalcitonin 5. This patient has a gram positive cocci and most likely staph. We will see if it is a non MRSA then the antibiotics that is onboard is probably adequate other if it is a MRSA the medication would need to be changed according the sensitivity. 6. Warm moist compress continue during the day 7. Weight for ID and sensitivity Thank you for allowing me to take care of the patient with you. [facility]
[2018-09-21] MEDS: HUMALOG SUBCUT PRN ×2 (11:31→17:19)
--- NOTE | 2018-09-21 14:36 | PN ---
DATE OF SERVICE: 09/20/18 SUBJECTIVE: The patient was seen and examined with Nurse Practitioner also was seen by me. The patient has cellulitis of the periumbilical area. The patient is on double antibiotics now Rocephin and Clindamycin would be added. His cardiovascular status is stable. He has aphagia with right hemiparesis. The patient's labs test and all imaging with CT scan of abdomen results all discussed. The patient' s erythema surrounds part is much less than yesterday. Mild drainage noted at the center. No fever and no chills. CONDITION: Stable. TIME SPENT: More than 30 minutes. Plan and coordination of the patient's care discussed in the presence of nurse. JUDSON
[2018-09-21] MEDS: ROCEPHIN 1 GM in SODIUM CHLORIDE 50 ML IV SCH (21:19)
[2018-09-21] MEDS: LIPITOR PO SCH (21:20)
[2018-09-21] MEDS: LEVEMIR SUBCUT SCH (21:20)
[2018-09-22] MEDS: PROTONIX PO SCH (05:51)
[2018-09-22] MEDS: CLEOCIN 600 MG in SODIUM CHLORIDE 50 ML IV SCH ×3 (05:51→21:11)
[2018-09-22] MEDS: LASIX TAB PO SCH (05:52)
[2018-09-22] MEDS: MIRALAX PO SCH (09:12)
[2018-09-22] MEDS: BETAPACE PO SCH ×2 (09:12→21:12)
[2018-09-22] MEDS: K-DUR PO SCH (09:13)
[2018-09-22] MEDS: HYDROCHLOROTHIAZIDE PO SCH ×2 (09:13→21:12)
[2018-09-22] MEDS: OMEGA-3 FISH OIL PO SCH (09:13)
[2018-09-22] MEDS: PLAVIX PO SCH (09:14)
[2018-09-22] MEDS: ZESTRIL PO SCH ×2 (09:14→21:12)
[2018-09-22] MEDS: FLOMAX PO SCH (09:14)
[2018-09-22] MEDS: PAXIL PO SCH (09:14)
[2018-09-22] MEDS: ASPIRIN EC PO SCH (09:14)
[2018-09-22] MEDS: HUMALOG SUBCUT PRN ×3 (17:20→21:21)
[2018-09-22] MEDS: LIPITOR PO SCH (21:12)
[2018-09-22] MEDS: BACTROBAN TP SCH (21:25)
[2018-09-22] MEDS: LEVEMIR SUBCUT SCH (21:29)
[2018-09-23 05:27] VITALS: BP 148/81; TEMP 97.6
[2018-09-23] MEDS: CLEOCIN 600 MG in SODIUM CHLORIDE 50 ML IV SCH ×2 (06:13→13:33)
[2018-09-23] MEDS: PROTONIX PO SCH (06:14)
[2018-09-23] MEDS: LASIX TAB PO SCH (06:14)
--- NOTE | 2018-09-23 09:27 | PN ---
DATE OF SERVICE: 09/22/18 SUBJECTIVE: The patient was admitted with abdominal cellulitis of periumbilical area. The patient's condition has improved and the size of the cellulitis area is much smaller. Dr. Sena is on consultation, it has MRSA from the report MRSA is sensitive to Clindamycin. The patient will be continued on Clindamycin along with Bactroban ointment. Cardiovascular status is stable. The patient's vitals today; temperature 98, pulse 71, respiratory rate 18, blood pressure 129/73 and pulse ox 98%. LABS: Hgb 11.5, hct 34, WBC 8,700 normal differential, creatinine 1.3, BUN 28 and potassium 3.6 CONDITION: Stable. TIME SPENT: More than 30 minutes. Plan and coordination of the patient's care discussed in the presence of nurse. JUDSON
[2018-09-23] MEDS: BACTROBAN TP SCH (09:59)
[2018-09-23] MEDS: MIRALAX PO SCH (09:59)
[2018-09-23] MEDS: K-DUR PO SCH (10:00)
[2018-09-23] MEDS: PAXIL PO SCH (10:00)
[2018-09-23] MEDS: BETAPACE PO SCH (10:00)
[2018-09-23] MEDS: ZESTRIL PO SCH (10:00)
[2018-09-23] MEDS: HYDROCHLOROTHIAZIDE PO SCH (10:01)
[2018-09-23] MEDS: PLAVIX PO SCH (10:01)
[2018-09-23] MEDS: FLOMAX PO SCH (10:01)
[2018-09-23] MEDS: ASPIRIN EC PO SCH (10:01)
[2018-09-23] MEDS: OMEGA-3 FISH OIL PO SCH (10:02)
[2018-09-23] MEDS: HUMALOG SUBCUT PRN (11:42)
--- NOTE | 2018-09-26 14:11 | DS ---
DATE OF SERVICE: 09/23/18 FINAL DIAGNOSIS: 1. ABDOMINAL WALL CELLULITIS INVOLVING PERIUMBILICAL AREA RESOLVING 2. HYPOKALEMIA 3. COPD 4. CORONARY ARTERY DISEASE 5. HEAVY SMOKER 6. HISTORY OF CVA 7. DIABETES MELLITUS 8. LEG EDEMA 9. DYSLIPIDEMIA 10. HYPERTENSION 11. CORONARY ARTERY BYPASS SURGERY DISCHARGE INSTRUCTIONS: Transferred to Swing Bed. MEDICATIONS AT TIME OF TRANSFER: Aspirin Atorvastatin Clopidogrel Lasix Insulin Lisinopril Pantoprazole Paroxetine Sotalol Tamsulosin Advised to continue all of them NEW PRESCRIPTIONS: The patient will be on Clindamycin IV Sulfa ointment DIET INSTRUCTIONS: Regular diet. ACTIVITY: As patient tolerates. SMOKING: Former smoker. DISEASE SPECIFIC EDUCATION: Transfer to swing bed HOSPITAL COURSE: 77-year-old white male, a resident of the snf was hospitalized with abdominal wall cellulitis. The patient had MRSA grow out of it. The patient was on Clindamycin and Rocephin from the beginning. The patient's MRSA is sensitive to Clindamycin. He was continued on Clindamycin. The cellulitis practically has resolved with sizes, even less than 1", localized, no drainage. The patient was seen by customer sales consultant, Dr. Sena, and is put on swing bed for further antibiotic treatment. The patient at time of transfer stable. LABS AT THE TIME OF TRANSFER: Hemoglobin 11.6, hematocrit 34, WBC 6,800, normal differential, creatinine 1.3, BUN 29, potassium 3.7. TIME SPENT: More than 60 minutes. [facility]
--- NOTE | 2018-09-26 14:15 | PN ---
CODING FOR BILLING 09/20/18 LEVEL 5 09/21/18 INTERMEDIATE 09/22/18 INTERMEDIATE 09/23/18 DISCHARGE - SWING BED MTDD
--- NOTE | 2018-09-26 14:19 | PN ---
DATE OF SERVICE: 09/23/18 -- DISCHARGE NOTE SUBJECTIVE: The patient is doing well. As usual, he is dysarthric but oriented to place and person. Afebrile. His appetite is good. No chest pain, no PND, no orthopnea. PHYSICAL EXAMINATION: GENERAL: The patient is oriented to place and person. HEENT: Head normocephalic, atraumatic. Eyes: Extraocular muscles are intact. Pupils are equal, round and reactive to light and accommodation. Ears: No lesions. Nose appeared normal. Throat: No exudate or erythema. NECK: Supple. No JVD, no carotid bruit. No lymphadenopathy or thyromegaly. LUNGS: Clear to auscultation. Percussion note normal. Chest symmetrical. HEART: S1, S2, no S3. No murmurs. No cyanosis or clubbing. No ascites. Pulses: Dorsalis pedis and posterior tibial pulses +1 to +2 bilaterally. ABDOMEN: The cellulitis area has shrunken to nearly an inch. No drainage. Practically healing up. Bowel sounds active. No CVA tenderness. No mass felt. EXTREMITIES: No edema. Full range of motion of all extremities, equal. NEUROLOGIC: No focal deficit. Cranial nerves II through XII are grossly intact. No headache, no double vision or headache. SKIN: Intact. Turgor - normal. LYMPHATIC: No palpable lymph nodes/no lymphedema. MUSCULOSKELETAL: Normal joints with no swelling. Muscle tone is normal. The patient is going to need IV antibiotics so we will discharge the patient to the swing bed. CONDITION: Stable. TIME SPENT: More than 30 minutes. Plan and coordination of the patient's care discussed in the presence of nurse. JUDSON
--- NOTE | 2018-10-03 09:33 | CONS ---
DATE OF SERVICE: 09/22/18 SUBJECTIVE: This 77-year-old male seen again today 09/22/18. The patient has a carbuncle mid abdomen. It had two rounded areas that are necrotic but still firm and could not be removed. The area that is firm is much smaller than yesterday as well as the redness. This patient is receiving Clindamycin intravenously. Culture did grow gram positive cocci, later identified as Staph Aureus, Penicillin resistant. It is sensitive to Clindamycin, which the patient is receiving. VIJI is 0.25. No review of systems is done today since it is essentially the same as yesterday. This patient has limited communication since she had a cerebrovascular accident. Will continue warm moist compresses. It certainly does not have fluctuant areas at this time that there appear no drainable cavities at this time. [facility]
== END 2018-09-23 13:59 | disposition swing bed (61) | DRG 603 ==
LOC: ED 02:00 → MEDSURG A 03:08
PROVIDERS: ADMIT Internal Medicine; ATTEND Internal Medicine
DX: L03.311 Cellulitis of abdominal wall (principal); L98.9 Disorder of the skin and subcutaneous tissue, unspecified; E87.6 Hypokalemia; E11.8 Type 2 diabetes mellitus with unspecified complications; E78.5 Hyperlipidemia, unspecified; J44.9 Chronic obstructive pulmonary disease, unspecified; I25.10 Atherosclerotic heart disease of native coronary artery without angina pectoris; I10 Essential (primary) hypertension; R10.0 Acute abdomen; R60.0 Localized edema; Z86.73 Personal history of transient ischemic attack (TIA), and cerebral infarction without residual deficits; Z79.4 Long term (current) use of insulin
CPT/HCPCS: 36415; 80048; 80053; 81001; 82962; 84145; 85007; 85025; 87070; 87081; 87086; 87186; 93005; 93010; 96365; 99223; 99232; 99239; 99253; 99285

== ENCOUNTER 2018-09-23 14:03 | Inpatient (IN) | payer OTHER ==
[2018-09-23 14:54] VITALS: BMI 21.9
[2018-09-23] MEDS: LEVEMIR SUBCUT SCH (20:52)
[2018-09-23] MEDS: CLEOCIN 600 MG in SODIUM CHLORIDE 50 ML IV SCH (20:53)
[2018-09-23] MEDS: BETAPACE PO SCH (20:54)
[2018-09-23] MEDS: HYDROCHLOROTHIAZIDE PO SCH (20:54)
[2018-09-23] MEDS: LIPITOR PO SCH (20:55)
[2018-09-23] MEDS: ZESTRIL PO SCH (20:55)
[2018-09-23] MEDS: BACTROBAN TP SCH (21:04)
[2018-09-24] MEDS: CLEOCIN 600 MG in SODIUM CHLORIDE 50 ML IV SCH ×3 (05:45→21:22)
[2018-09-24] MEDS: LASIX TAB PO SCH (05:45)
[2018-09-24] MEDS: PROTONIX PO SCH (05:45)
[2018-09-24] MEDS ORDERED: OMEGA PO SCH (09:00)
[2018-09-24] MEDS ORDERED: FATTY ACIDS PO SCH (09:00)
[2018-09-24] MEDS: BETAPACE PO SCH ×2 (09:36→21:20)
[2018-09-24] MEDS: ZESTRIL PO SCH ×2 (09:36→21:18)
[2018-09-24] MEDS: FLOMAX PO SCH (09:36)
[2018-09-24] MEDS: PLAVIX PO SCH (09:36)
[2018-09-24] MEDS: ASPIRIN EC PO SCH (09:36)
[2018-09-24] MEDS: K-DUR PO SCH (09:37)
[2018-09-24] MEDS: OMEGA-3 FISH OIL PO SCH (09:37)
[2018-09-24] MEDS: PAXIL PO SCH (09:37)
[2018-09-24] MEDS: HYDROCHLOROTHIAZIDE PO SCH ×2 (09:37→21:21)
[2018-09-24] MEDS: BACTROBAN TP SCH ×2 (09:38→21:51)
[2018-09-24] MEDS: MIRALAX PO SCH (09:38)
[2018-09-24] MEDS: HUMALOG SUBCUT PRN ×2 (11:02→17:14)
[2018-09-24] MEDS ORDERED: CLEOCIN ONE (21:09)
[2018-09-24] MEDS: LIPITOR PO SCH (21:21)
[2018-09-24] MEDS: LEVEMIR SUBCUT SCH (21:29)
[2018-09-25] MEDS: CLEOCIN 600 MG in SODIUM CHLORIDE 50 ML IV SCH ×3 (05:59→21:04)
[2018-09-25] MEDS: LASIX TAB PO SCH (05:59)
[2018-09-25] MEDS: PROTONIX PO SCH (05:59)
[2018-09-25] MEDS: MIRALAX PO SCH (08:10)
[2018-09-25] MEDS: PAXIL PO SCH (08:11)
[2018-09-25] MEDS: FLOMAX PO SCH (08:11)
[2018-09-25] MEDS: K-DUR PO SCH (08:11)
[2018-09-25] MEDS: ZESTRIL PO SCH ×2 (08:11→21:00)
[2018-09-25] MEDS: PLAVIX PO SCH (08:12)
[2018-09-25] MEDS: HYDROCHLOROTHIAZIDE PO SCH ×2 (08:12→20:59)
[2018-09-25] MEDS: OMEGA-3 FISH OIL PO SCH (08:13)
[2018-09-25] MEDS: ASPIRIN EC PO SCH (08:13)
[2018-09-25] MEDS: BETAPACE PO SCH ×2 (08:13→21:00)
[2018-09-25] MEDS: BACTROBAN TP SCH ×2 (08:14→21:08)
[2018-09-25] MEDS: HUMALOG SUBCUT PRN ×2 (17:32→20:55)
[2018-09-25] MEDS: LEVEMIR SUBCUT SCH (20:58)
[2018-09-25] MEDS: LIPITOR PO SCH (21:00)
[2018-09-26] MEDS: PROTONIX PO SCH (06:21)
[2018-09-26] MEDS: LASIX TAB PO SCH (06:21)
[2018-09-26] MEDS: CLEOCIN 600 MG in SODIUM CHLORIDE 50 ML IV SCH ×3 (06:21→22:08)
--- NOTE | 2018-09-26 08:50 | PCM.PROG ---
Attending Provider: ATTENDING PROVIDER: Dr. IDALIA LAWSON This patient is seen with Sherri Mak, Nurse Practitioner. DATE OF SERVICE: 09/26/18 SUBJECTIVE: This 77 year old WHITE/ M was hospitalized 09/23/18. The patient is resting comfortably. No fever. There is still with redness and tenderness on abdomen. REVIEW OF SYSTEMS: CONSTITUTIONAL: No night sweats. No fatigue, malaise, lethargy. No fever or chills. HEENT: Eyes: No visual changes. No eye pain. No eye discharge. ENT: No runny nose. No epistaxis. No sinus pain. No odynophagia. No congestion. RESPIRATORY: No cough, no congestion. No hemoptysis. No shortness of breath. CARDIOVASCULAR: No angina symptoms. No CHF symptoms. No atypical chest pain for CAD. No palpitations. No orthopnea.. GASTROINTESTINAL: No abdominal pain. No nausea or vomiting. No diarrhea or constipation. No hematemesis. No hematochezia. GENITOURINARY: No urgency. No frequency. No dysuria. No hematuria. No obstructive symptoms. No discharge. No pain. No significant abnormal bleeding. MUSCULOSKELETAL: No musculoskeletal pain; no joint swelling. Weakness due to stroke. NEUROLOGICAL: Awake, alert, oriented to time, place and person. No headache. No neck pain. No syncope. No seizures. No dizziness. PSYCHIATRIC: Not anxious. No depression. No suicidal thoughts. No homicidal thoughts. SKIN: No rash. No lesions. No wounds. Abdominal abscess. ENDOCRINE: No unexplained weight loss. No weight gain. HEMATOLOGIC/LYMPHATIC: No anemia. No purpura. No petechiae. No prolonged or excessive bleeding. No palpable lymph nodes. PHYSICAL EXAMINATION: GENERAL: The patient is awake, alert and oriented, lying in bed in no distress. VITAL SIGNS: Temperature 97.5 F, Pulse 66, Respiratory Rate 16, BP 114/60, Pulse Ox 96% HEENT: Head normocephalic, atraumatic. Eyes: Extraocular muscles are intact. Pupils are equal, round and reactive to light and accommodation. Ears: No lesions. Nose appeared normal. Throat: No exudate or erythema. NECK: Supple. No JVD, no carotid bruit. No lymphadenopathy or thyromegaly. LUNGS: Diminished breath sounds. Clear to auscultation. Percussion note normal. Chest symmetrical. HEART: S1, S2, no S3. No murmurs. No cyanosis or clubbing. No ascites. Pulses: Dorsalis pedis and posterior tibial pulses +1 to +2 both sides. ABDOMEN: Soft. Non-tender. Bowel sounds active. No CVA tenderness. No mass felt. EXTREMITIES: No edema. Full range of motion of all extremities, equal. NEUROLOGIC: No focal deficit. Cranial nerves II through XII are grossly intact. No headache, no double vision or headache. SKIN: Not dry. Intact. Turgor-normal. 3x1 red indurated abscess on abdomen with localized erythema, no drainage. LYMPHATIC: No palpable lymph nodes/no lymphedema. MUSCULOSKELETAL: Normal joints with no swelling. Muscle tone is normal. LAB REVIEW: 09/26/18 04:48 09/26/18 04:48 09/26/18 04:48: Sodium 142.2, Potassium 3.92, Chloride 104.1, Carbon Dioxide 29.7, Anion Gap 12.32, BUN 23.7 H, Creatinine 1.24 H, Estimated GFR (MDRD) 57.00 , BUN/Creatinine Ratio 19.11, Glucose 130.7 H, Calcium 8.89, Total Bilirubin 0.28, AST 18.9, ALT 15.6, Alkaline Phosphatase 104.1, Total Protein 6.61, Albumin 3.52, Globulin 3.09, Albumin/Globulin Ratio 1.13 09/26/18 04:48: WBC 6.99, RBC 3.89 L, Hgb 11.6 L, Hct 33.9 L, MCV 87.1, MCH 29.8 , MCHC 34.2, RDW Coeff of Cyrus 12.9, Plt Count 205, Immature Gran % (Auto) 0.9, Neut % (Auto) 65.2, Lymph % (Auto) 18.7, [place] % (Auto) 9.6, Eos % (Auto) 5.0, Baso % (Auto) 0.6, Immature Gran # (Auto) 0.1, Neut # (Auto) 4.6, Lymph # (Auto ) 1.3, [place] # (Auto) 0.7, Eos # (Auto) 0.4, Baso # (Auto) 0.0 ASSESSMENT: Please see below. 1. Abdominal abscess with cellulitis, positive for MSRA 2. History of CVA PLAN: 1. Continue IV Clindamycin 2. Continue warm compress three times a day Plan and coordination of the patient's care discussed in the presence of Director Of Student Life and nurse. SCRIBED BY: Macie RUCKER scribed while in presence of service performed by Dr. Lawson/Sherri Mak APRN on 09/26/18 ([id number])
[2018-09-26] MEDS: OMEGA-3 FISH OIL PO SCH (09:13)
[2018-09-26] MEDS: PLAVIX PO SCH (09:13)
[2018-09-26] MEDS: MIRALAX PO SCH (09:13)
[2018-09-26] MEDS: PAXIL PO SCH (09:14)
[2018-09-26] MEDS: ZESTRIL PO SCH ×2 (09:14→22:12)
[2018-09-26] MEDS: FLOMAX PO SCH (09:14)
[2018-09-26] MEDS: ASPIRIN EC PO SCH (09:14)
[2018-09-26] MEDS: K-DUR PO SCH (09:14)
[2018-09-26] MEDS: BETAPACE PO SCH ×2 (09:14→22:13)
[2018-09-26] MEDS: BACTROBAN TP SCH ×2 (09:15→22:14)
[2018-09-26] MEDS: HYDROCHLOROTHIAZIDE PO SCH ×2 (09:19→22:13)
[2018-09-26] MEDS: HUMALOG SUBCUT PRN (11:22)
[2018-09-26] MEDS: LIPITOR PO SCH (22:13)
[2018-09-26] MEDS: LEVEMIR SUBCUT SCH (22:20)
[2018-09-27] MEDS: CLEOCIN 600 MG in SODIUM CHLORIDE 50 ML IV SCH ×3 (05:27→20:44)
[2018-09-27] MEDS: LASIX TAB PO SCH (05:30)
[2018-09-27] MEDS: PROTONIX PO SCH (05:30)
[2018-09-27] MEDS: BACTROBAN TP SCH ×2 (09:00→22:02)
[2018-09-27] MEDS: FLOMAX PO SCH (09:01)
[2018-09-27] MEDS: K-DUR PO SCH (09:01)
[2018-09-27] MEDS: ZESTRIL PO SCH ×2 (09:03→20:41)
[2018-09-27] MEDS: ASPIRIN EC PO SCH (09:03)
[2018-09-27] MEDS: PAXIL PO SCH (09:03)
[2018-09-27] MEDS: OMEGA-3 FISH OIL PO SCH (09:03)
[2018-09-27] MEDS: HYDROCHLOROTHIAZIDE PO SCH ×2 (09:04→20:42)
[2018-09-27] MEDS: PLAVIX PO SCH (09:04)
[2018-09-27] MEDS: BETAPACE PO SCH ×2 (09:05→20:41)
--- NOTE | 2018-09-27 11:26 | HP ---
DATE OF SERVICE: 09/23/18 REASON FOR SWING BED ADMISSION/HISTORY OF PRESENT ILLNESS: Cellulitis of abdominal wall, getting localized oblong 1.5inch x 1inch seems to be coming to head. PAST MEDICAL HISTORY/PAST SURGICAL HISTORY: History of coronary bypass surgery CVA Chronic lung disease Hypertension Dyslipidemia Chronic kidney disease REVIEW OF SYSTEMS: Unable to give any reliable history or any kind of history because of dysarthria from stroke. Obviously he is not in distress. CONSTITUTIONAL: No night sweats. No fatigue, malaise, lethargy. No fever or chills. HEENT: Eyes: No visual changes. No eye pain. No eye discharge. ENT: No runny nose. No epistaxis. No sinus pain. No sore throat. No odynophagia. No ear pain. No congestion. RESPIRATORY: No cough, no congestion. No hemoptysis. No shortness of breath. CARDIOVASCULAR: No angina symptoms. No CHF symptoms. No atypical chest pain for CAD. No palpitations. No PND. No orthopnea. GASTROINTESTINAL: No abdominal pain. No nausea or vomiting. No diarrhea or constipation. No hematemesis. No hematochezia. GENITOURINARY: No urgency. No frequency. No dysuria. No hematuria. No obstructive symptoms. No discharge. No pain. No significant abnormal bleeding. MUSCULOSKELETAL: No musculoskeletal pain. No joint swelling. No arthritis. NEUROLOGICAL: No headache. No neck pain. No syncope. No seizures. No dizziness. PSYCHIATRIC: Not anxious. No depression. No suicidal thoughts. No homicidal thoughts. SKIN: No rash. No lesions. No wounds. ENDOCRINE: No unexplained weight loss. No weight gain. HEMATOLOGIC/LYMPHATIC: No anemia. No purpura. No petechiae. No prolonged or excessive bleeding. No palpable lymph nodes. PERSONAL/FAMILY/SOCIAL HISTORY: The patient is and [facility] in the [facility]. Nonsmoker and no alcohol abuse. Used to smoke heavy in the past. MEDICATIONS: Aspirin Clopidogrel Lisinopril Hydrochlorothiazide Pantoprazole Furosemide Paroxetine Atorvastatin Insulin Levemir Sotalol Tamsulosin ALLERGIES: None. PHYSICAL EXAMINATION: VITAL SIGNS: Temperature 97.6, pulse 80, respiratory rate 16, blood pressure 110/60 and pulse ox 96%. HEENT: Head normocephalic, atraumatic. Eyes: Extraocular muscles are intact. Pupils are equal, round and reactive to light and accommodation. Ears: No lesions. Nose appeared normal. Throat: No exudate or erythema. NECK: Supple. No JVD, no carotid bruit. No lymphadenopathy or thyromegaly. LUNGS: Decreased breath sounds but clear to auscultation. Percussion note normal. Chest symmetrical. HEART: S1, S2, no S3. No murmurs. No cyanosis or clubbing. No ascites. Pulses: Dorsalis pedis and posterior tibial pulses +1 bilaterally. ABDOMEN: Soft. Nontender. Bowel sounds active. No CVA tenderness. No mass felt. Periumbilical Supraumbilical area 1.5"x 1 inch oblong patch of cellulitis with pustulent mass superficial which is more than what is was before. EXTREMITIES: No edema. Full range of motion of all extremities, equal. NEUROLOGIC: No focal deficit. Cranial nerves II through XII are grossly intact. No headache, no double vision or headache. The patient has dysarthria unable to say more than a couple of words. SKIN: Not dry. Intact. Turgor - normal. LYMPHATIC: No palpable lymph nodes/no lymphedema. MUSCULOSKELETAL: Normal joints with no swelling. Muscle tone is normal. LABS: Hgb 11.9, hct 35, WBC 6,000 normal differential, creatinine 1.1, BUN 25, potassium 3.7. Estimated GFR 61. ASSESSMENT: 1. Cellulitis of abdomen wall 2. Coronary bypass surgery 3. COPD 4. History of smoking 5. 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 Dysarthria 7. Dyslipidemia 8. Hypertension PLAN: 1. Continue Clindamycin 2. Sulfa cream is suggested optotypical 3. Continue the rest of the medications as before PROGNOSIS: GOOD. TIME SPENT: More than 70 minutes. MTDD
[2018-09-27] MEDS: HUMALOG SUBCUT PRN ×2 (12:12→18:59)
[2018-09-27] MEDS: MIRALAX PO SCH (12:42)
[2018-09-27] MEDS: LEVEMIR SUBCUT SCH (20:42)
[2018-09-27] MEDS: LIPITOR PO SCH (20:42)
[2018-09-28] MEDS: CLEOCIN 600 MG in SODIUM CHLORIDE 50 ML IV SCH ×3 (05:48→21:34)
[2018-09-28] MEDS: PROTONIX PO SCH (05:48)
[2018-09-28] MEDS: LASIX TAB PO SCH (05:49)
--- NOTE | 2018-09-28 09:27 | PCM.PROG ---
Attending Provider: ATTENDING PROVIDER: Dr. IDALIA EMERY This patient is seen with Sherri Mak, Nurse Practitioner. DATE OF SERVICE: 09/28/18 SUBJECTIVE: This 77 year old WHITE/ M was hospitalized 09/23/18. The patient is resting comfortably. No fever. Dr. Sena did not see the patient yesterday. The area of induration seems to be improving along with redness. It has scant serosanguineous drainage today. REVIEW OF SYSTEMS: CONSTITUTIONAL: No night sweats. No fatigue, malaise, lethargy. No fever or chills. HEENT: Eyes: No visual changes. No eye pain. No eye discharge. ENT: No runny nose. No epistaxis. No sinus pain. No odynophagia. No congestion. RESPIRATORY: No cough, no congestion. No hemoptysis. No shortness of breath. CARDIOVASCULAR: No angina symptoms. No CHF symptoms. No atypical chest pain for CAD. No palpitations. No orthopnea.. GASTROINTESTINAL: No abdominal pain. No nausea or vomiting. No diarrhea or constipation. No hematemesis. No hematochezia. GENITOURINARY: No urgency. No frequency. No dysuria. No hematuria. No obstructive symptoms. No discharge. No pain. No significant abnormal bleeding. MUSCULOSKELETAL: No musculoskeletal pain; no joint swelling. NEUROLOGICAL: Awake, alert, oriented to time, place and person. No headache. No neck pain. No syncope. No seizures. No dizziness. PSYCHIATRIC: Not anxious. No depression. No suicidal thoughts. No homicidal thoughts. SKIN: No rash. No lesions. No wounds. Abdominal abscess. ENDOCRINE: No unexplained weight loss. No weight gain. HEMATOLOGIC/LYMPHATIC: No anemia. No purpura. No petechiae. No prolonged or excessive bleeding. No palpable lymph nodes. PHYSICAL EXAMINATION: GENERAL: The patient is awake, alert and oriented, lying in bed in no distress. VITAL SIGNS: Temperature 97.5 F, Pulse 74, Respiratory Rate 20, BP 120/69, Pulse Ox 95% HEENT: Head normocephalic, atraumatic. Eyes: Extraocular muscles are intact. Pupils are equal, round and reactive to light and accommodation. Ears: No lesions. Nose appeared normal. Throat: No exudate or erythema. NECK: Supple. No JVD, no carotid bruit. No lymphadenopathy or thyromegaly. LUNGS: Clear to auscultation. Percussion note normal. Chest symmetrical. HEART: S1, S2, no S3. No murmurs. No cyanosis or clubbing. No ascites. Pulses: Dorsalis pedis and posterior tibial pulses +1 to +2 both sides. ABDOMEN: Soft. Non-tender. Bowel sounds active. No CVA tenderness. No mass felt. EXTREMITIES: No edema. Full range of motion of all extremities, equal. NEUROLOGIC: No focal deficit. Cranial nerves II through XII are grossly intact. No headache, no double vision or headache. SKIN: Not dry. Intact. Turgor-normal. 2x3 1/4 inch abscess with improving erythema on abdomen, serosanguieous drainage. LYMPHATIC: No palpable lymph nodes/no lymphedema. MUSCULOSKELETAL: Normal joints with no swelling. Muscle tone is normal. LAB REVIEW: 09/28/18 04:35 09/28/18 04:35 09/28/18 04:35: Sodium 143.0, Potassium 3.77, Chloride 105.0, Carbon Dioxide 29.5, Anion Gap 12.27, BUN 26.0 H, Creatinine 1.26 H, Estimated GFR (MDRD) 55.00 , BUN/Creatinine Ratio 20.63, Glucose 116.0 H, Calcium 9.00, Total Bilirubin 0.29, AST 20.4, ALT 16.9, Alkaline Phosphatase 104.1, Total Protein 6.70, Albumin 3.67, Globulin 3.03, Albumin/Globulin Ratio 1.21 09/28/18 04:35: WBC 7.30, RBC 3.88 L, Hgb 11.5 L, Hct 33.9 L, MCV 87.4, MCH 29.6 , MCHC 33.9, RDW Coeff of Cyrus 13.2, Plt Count 210, Immature Gran % (Auto) 1.2, Neut % (Auto) 64.7, Lymph % (Auto) 20.8, [place] % (Auto) 8.4, Eos % (Auto) 4.4, Baso % (Auto) 0.5, Immature Gran # (Auto) 0.1, Neut # (Auto) 4.7, Lymph # (Auto ) 1.5, [place] # (Auto) 0.6, Eos # (Auto) 0.3, Baso # (Auto) 0.0 ASSESSMENT: Please see below. 1. Abdominal abscess with cellulitis, positive for MSRA 2. History of CVA PLAN: 1. Will wait for Dr. Sena, if not will discharge back to [facility]. 2. Clindamycin 300mg three times a day for 5 day 3. Continue with Bactroban 4. Warm compress three times a day Plan and coordination of the patient's care discussed in the presence of Deposition Operator and nurse. SCRIBED BY: Macie RUCKER scribed while in presence of service performed by Dr. Emery/Sherri Mak APRN on 09/28/18 ([id number])
[2018-09-28] MEDS: BETAPACE PO SCH ×2 (09:30→21:38)
[2018-09-28] MEDS: ASPIRIN EC PO SCH (09:30)
[2018-09-28] MEDS: BACTROBAN TP SCH ×2 (09:30→21:35)
[2018-09-28] MEDS: FLOMAX PO SCH (09:31)
[2018-09-28] MEDS: K-DUR PO SCH (09:31)
[2018-09-28] MEDS: HYDROCHLOROTHIAZIDE PO SCH ×2 (09:31→21:38)
[2018-09-28] MEDS: OMEGA-3 FISH OIL PO SCH (09:32)
[2018-09-28] MEDS: PAXIL PO SCH (09:32)
[2018-09-28] MEDS: MIRALAX PO SCH (09:32)
[2018-09-28] MEDS: PLAVIX PO SCH (09:32)
[2018-09-28] MEDS: ZESTRIL PO SCH ×2 (09:33→21:39)
[2018-09-28] MEDS: HUMALOG SUBCUT PRN ×2 (11:39→16:46)
--- NOTE | 2018-09-28 14:04 | PN ---
DATE OF SERVICE: 09/26/18 SUBJECTIVE: The patient was seen and examined today with the Nurse Practitioner. The cellulitis has localized now and has fluctuant swelling. Dr. Sena coming back tomorrow, may have to do I and D. Continue antibiotics. TIME SPENT: More than 30 minutes. Plan and coordination of the patient's care discussed in the presence of nurse. JUDSON
[2018-09-28 18:01] VITALS: TEMP 97.6
[2018-09-28] MEDS: LIPITOR PO SCH (21:38)
[2018-09-28] MEDS: LEVEMIR SUBCUT SCH (21:46)
[2018-09-29] MEDS: CLEOCIN 600 MG in SODIUM CHLORIDE 50 ML IV SCH (04:50)
[2018-09-29 05:21] VITALS: BP 129/58
[2018-09-29] MEDS: PROTONIX PO SCH (05:32)
[2018-09-29] MEDS: LASIX TAB PO SCH (05:32)
--- NOTE | 2018-09-29 09:12 | PCM.PROG ---
Attending Provider: ATTENDING PROVIDER: Dr. IDALIA EMERY This patient is seen with Sherri Mak, Nurse Practitioner. DATE OF SERVICE: 09/29/18 SUBJECTIVE: This 77 year old WHITE/ M was hospitalized 09/23/18. The patient is lying in bed resting comfortably. Dr. Sena saw the patient yesterday and did not think I & D was necessary. The area is slowly improving. The patient is eating well and is afebrile. REVIEW OF SYSTEMS: CONSTITUTIONAL: Weakness due to stroke. No night sweats. No fatigue, malaise, lethargy. No fever or chills. HEENT: Eyes: No visual changes. No eye pain. No eye discharge. ENT: No runny nose. No epistaxis. No sinus pain. No odynophagia. No congestion. RESPIRATORY: No cough, no congestion. No hemoptysis. No shortness of breath. CARDIOVASCULAR: No angina symptoms. No CHF symptoms. No atypical chest pain for CAD. No palpitations. No orthopnea.. GASTROINTESTINAL: No abdominal pain. No nausea or vomiting. No diarrhea or constipation. No hematemesis. No hematochezia. GENITOURINARY: No urgency. No frequency. No dysuria. No hematuria. No obstructive symptoms. No discharge. No pain. No significant abnormal bleeding. MUSCULOSKELETAL: No musculoskeletal pain; no joint swelling. NEUROLOGICAL: Awake, alert, oriented to time, place and person. No headache. No neck pain. No syncope. No seizures. No dizziness. PSYCHIATRIC: Not anxious. No depression. No suicidal thoughts. No homicidal thoughts. SKIN: Positive for abscess on abdomen. No rash. No lesions. ENDOCRINE: No unexplained weight loss. No weight gain. HEMATOLOGIC/LYMPHATIC: No anemia. No purpura. No petechiae. No prolonged or excessive bleeding. No palpable lymph nodes. PHYSICAL EXAMINATION: GENERAL: The patient is awake, alert and oriented, lying in bed in no distress. VITAL SIGNS: Temperature 97.6 F, Pulse 69, Respiratory Rate 16, BP 129/58, Pulse Ox 97% HEENT: Head normocephalic, atraumatic. Eyes: Extraocular muscles are intact. Pupils are equal, round and reactive to light and accommodation. Ears: No lesions. Nose appeared normal. Throat: No exudate or erythema. NECK: Supple. No JVD, no carotid bruit. No lymphadenopathy or thyromegaly. LUNGS: Diminished breath sounds. Clear to auscultation. Percussion note normal. Chest symmetrical. HEART: S1, S2, no S3. No murmurs. No cyanosis or clubbing. No ascites. Pulses: Dorsalis pedis and posterior tibial pulses +1 to +2 both sides. ABDOMEN: Improving abscess on abdomen 2" x 1" with improving erythema, no drainage, localized induration. Soft. Non-tender. Bowel sounds active. No CVA tenderness. No mass felt. EXTREMITIES: No edema. Full range of motion of all extremities, equal. NEUROLOGIC: No focal deficit. Cranial nerves II through XII are grossly intact. No headache, no double vision or headache. SKIN: Warm, dryy. Intact. Turgor-normal. LYMPHATIC: No palpable lymph nodes/no lymphedema. MUSCULOSKELETAL: Normal joints with no swelling. Muscle tone is normal. LAB REVIEW: 09/28/18 04:35 09/28/18 04:35 ASSESSMENT: 1. Abdominal abscess with cellulitis, positive for MRSA 2. History of multiple CVA's 3. Chronic kidney disease PLAN: 1. Discharge to [facility] 2. Clindamycin 300 mg t.i.d. times 5 days. 3. Continue warm compresses t.i.d. 4. Bactroban b.i.d. Plan and coordination of the patient's care discussed in the presence of Power Press Tender and nurse. CONDITION: Stable SCRIBED BY: NANCY LOPEZ State Comptroller scribed while in presence of service performed by Dr. Emery/Sherri Mak APRN on 09/29/18 ([id number])
[2018-09-29] MEDS: HYDROCHLOROTHIAZIDE PO SCH (09:46)
[2018-09-29] MEDS: ZESTRIL PO SCH (09:47)
[2018-09-29] MEDS: OMEGA-3 FISH OIL PO SCH (09:48)
[2018-09-29] MEDS: FLOMAX PO SCH (09:48)
[2018-09-29] MEDS: BETAPACE PO SCH (09:49)
[2018-09-29] MEDS: K-DUR PO SCH (09:50)
[2018-09-29] MEDS: PAXIL PO SCH (09:51)
[2018-09-29] MEDS: ASPIRIN EC PO SCH (09:51)
[2018-09-29] MEDS: PLAVIX PO SCH (09:51)
[2018-09-29] MEDS: MIRALAX PO SCH (09:52)
[2018-09-29] MEDS: BACTROBAN TP SCH (09:52)
--- NOTE | 2018-09-29 10:16 | CM.DICTOOL ---
ADMISSION: 09/23/18 14:03 DISCHARGE: SEPTEMBER 29, 2018 FROM TRANSITIONAL CARE DATE OF SERVICE: 09/29/18 FINAL DIAGNOSIS ABDOMINAL ABSCESS WITH CELLULITIS, MRSA ORGANISM CONTINUATION OF IV ANTIBIOTIC HYPERTENSION HYPOKALEMIA, RESOLVED COPD DIABETES MELLITUS, TYPE 2 CAD CVA, RIGHT SIDE HEMIPARESIS DYSARTHRIA DYSLIPIDEMIA BPH DEPRESSION LAST VITALS Temp Pulse Resp BP Pulse Ox 97.6 F 69 16 129/58 L 97 09/29/18 05:21 09/29/18 05:21 09/29/18 05:21 09/29/18 05:21 09/29/18 05:21 TAKE THESE MEDICATIONS AT HOME Aspirin (Aspirin Ec) 81 mg PO DAILYWM [facility] Last Admin: 09/28/18 09:30 Dose: 81 mg Atorvastatin Calcium (Lipitor) 20 mg PO BEDTIME [facility] Last Admin: 09/28/18 21:38 Dose: 20 mg Clopidogrel Bisulfate (Plavix) 75 mg PO DAILY [facility] Last Admin: 09/28/18 09:32 Dose: 75 mg Fish Oil (Goltry-3 Fish Oil) 1,000 mg PO DAILY [facility] Last Admin: 09/28/18 09:32 Dose: 1,000 mg Furosemide (Lasix Tab) 40 mg PO QDAC [facility] Last Admin: 09/29/18 05:32 Dose: 40 mg Hydrochlorothiazide (Hydrochlorothiazide) 12.5 mg PO BID [facility] Last Admin: 09/28/18 21:38 Dose: 12.5 mg Clindamycin 300 mg PO TID DAILY for 5 days Insulin Detemir (Levemir) 10 unit SUBCUT BEDTIME [facility] Last Admin: 09/28/18 21:46 Dose: 10 unit Insulin Human Lispro (Humalog) 0 - 20 unit SUBCUT ACHS PRN; Protocol PRN Reason: hyperglycemia Last Admin: 09/28/18 16:46 Dose: 1 unit Lisinopril (Zestril) 10 mg PO BID [facility] Last Admin: 09/28/18 21:39 Dose: 10 mg Mupirocin (Bactroban) 1 applic TP BID [facility] Last Admin: 09/28/18 21:35 Dose: 1 applic Pantoprazole Sodium (Protonix) 40 mg PO QDAC [facility] Last Admin: 09/29/18 05:32 Dose: 40 mg Paroxetine HCl (Paxil) 20 mg PO DAILY [facility] Last Admin: 01/30/19 09:32 Dose: 20 mg Polyethylene Glycol (Miralax) 17 gm PO DAILY [facility] Last Admin: 09/28/18 09:32 Dose: Not Given Potassium Chloride (K-Dur) 40 meq PO DAILYWM [facility] Last Admin: 09/28/18 09:31 Dose: 40 meq Sotalol HCl (Betapace) 40 mg PO BID [facility] Last Admin: 09/28/18 21:38 Dose: 40 mg Tamsulosin HCl (Flomax) 0.4 mg PO DAILY [facility] Last Admin: 09/28/18 09:31 Dose: 0.4 mg ALLERGIES No Known Allergies Allergy (Verified 10/23/17 11:45) NEW PRESCRIPTIONS: CLINDAMYCIN 300 MG TID FOR 5 DAYS, NEXT DOSE DUE AT 5 PM BACTROBAN TOPICAL BID TO ABDOMINAL REDNESS WARM/MOIST COMPRESS TO ABDOMINAL AREA TID SMOKING: NOT APPLICABLE DISEASE SPECIFIC EDUCATION: CELLULITIS LAB REVIEW: 09/28/18 04:35 09/28/18 04:35 PLAN: DISCHARGE TO [facility] DIET: REGULAR MECHANICAL SOFT, GROUND MEATS REGULAR LIQUIDS ACTIVITY: UP TO CHAIR FOR MEALS AND DESIRED ASSIST WITH TURNING AND REPOSITIONING EVERY 2 HOURS INCONTINENT CARE PRN VITAL SIGNS DAILY AND PRN ACCU-CHECKS AC AND HS WITH COVERAGE PRN WARM, MOIST COMPRESS TO ABDOMEN TID CBC, CMP IN ONE WEEK AND THEN MONTHLY PATIENT TO BE SEEN ON HALF-WAY ROUNDS BY JOSEFINA LADD APRN IN 7 DAYS CODE STATUS: FULL CODE MR. POLK IS ALERT TO PERSON, PLACE AND SITUATION. SPEECH IS DIFFICULT TO UNDERSTAND, BUT HE WILL ANSWER "YES, NO OR YEAH" TO QUESTIONS ASKED. HE DENIES PAIN TO THE ABDOMINAL AREA EVEN WITH PALPATION. DECREASING ERYTHEMA AND INDURATION NOTED TO THE ABDOMINAL ABSCESS. NO DRAINAGE NOTED TODAY, BUT HAS BEEN NOTED TO HAVE SEROSANGUINEOUS DRAINAGE. NO RED STREAKING OR SURROUNDING REDNESS NOTED. NO CHILLS OR FEVER. A SUPERFICIAL AREA OF REDNESS IS NOTED TO THE BUTTOCKS. THE AREA IS WITHOUT DRAINAGE. MR. 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 MEAL INTAKES ARE GOOD AT 50-100%. MR. POLK REQUIRES ASSISTANCE WITH TURNING AND OUT OF BED DUE TO RIGHT HEMIPARESIS. HE TRANSFERS WITH ASSIST OF 2 STAFF MEMBERS TO THE BEDSIDE CHAIR, BUT DOES NOT AMBULATE. MR. POLK IS INCONTINENT OF URINE AT TIMES, BUT WILL ALSO USE THE URINAL IF THE URINAL IS PLACED CLOSE BY. IDALIA LAWSON MD JOSEFINA LADD APRN
--- NOTE | 2018-09-29 10:46 | PN ---
DATE OF SERVICE: 09/28/18 SUBJECTIVE: The patient was seen and examined with the nurse practitioner. The patient's cardiovascular status is stable. The cellulitis size is shrinking. The patient may need I & D. Will leave it up to the surgical instruments inspector, Dr. Sena. Condition stable. TIME SPENT: More than 30 minutes. Plan and coordination of the patient's care discussed in the presence of nurse. JUDSON
--- NOTE | 2018-09-30 11:51 | DS ---
DATE OF SERVICE: 09/29/18 FINAL DIAGNOSIS: 1. ABDOMINAL ABSCESS WITH CELLULITIS MRSA ORGANISM 2. CONTINUATION OF IV ANTIBIOTIC 3. HYPERTENSION 4. HYPOKALEMIA RESOLVED 5. COPD 6. DIABETES MELLITUS, TYPE 2 7. CAD 8. CVA, RIGHT SIDED HEMIPARESIS 9. DYSARTHRIA 10. DYSLIPIDEMIA 11. BPH 12. DEPRESSION LAST V/S: Temperature 97.6, pulse 69, respiratory rate 16, BP 129/58, pulse ox 97 DISCHARGE INSTRUCTIONS: 1. Followup appointment: The patient is to be seen on [facility] rounds by Sherri Mak APRN in 7 days. 2. Code status - full code. 3. CBC, CMP in one week and then monthly. 4. Vital signs daily and p.r.n. 5. Accu-Checks a.c. and h.s. with coverage p.r.n. 6. Warm, moist compress to abdomen t.i.d. MEDICATIONS AT DISCHARGE: Aspirin 81 mg p.o. daily with meal PRUDENCIO Lipitor 20 mg p.o. bedtime PRUDENCIO Plavix 75 mg p.o. daily PRUDENCIO Gaffney-3 Fish Oil 1,000 mg p.o. daily PRUDENCIO Lasix 40 mg p.o.q .d a.c. PRUDENCIO Hydrochlorothiazide 12.5 mg p.o. b.i.d. PRUDENCIO Clindamycin 300 mg p.o. t.i.d. daily for 5 days Levemir 10 unit subcut bedtime PRUDENCIO Humalog 0-20 unit subcut a.c. h.s. p.r.n. Zestril 10 mg p.o. b.i.d. PRUDENCIO Bactroban one application TP b.i.d. PRUDENCIO Protonix 40 mg p.o. q.d a.c. PRUDENCIO Paxil 20 mg p.o.d aily PRUDENCIO Miralax 17 gm p.o. daily PRUDENCIO K-Dur 40 mEq p.o. daily with meal PRUDENCIO Betapace 40 mg p.o. b.i.d. PRUDENCIO Flomax 0.4 mg p.o. daily PRUDENCIO NEW PRESCRIPTIONS: Clindamycin 300 mg t.i.d. for 5 days, next dose due at 5 p.m. Bactroban topical b.i.d. to abdominal redness Warm/moist compress to abdominal area t.i.d. DIET INSTRUCTIONS: Regular mechanical soft, ground meats, regular liquids ACTIVITY: Up to chair for meals and as desired. Assist with turning and repositioning every 2 hours. Incontinent care p.r.n. SMOKING: N/A DISEASE SPECIFIC EDUCATION: Cellulitis HOSPITAL COURSE: This is a 77-year-old white male who is a resident of [facility] who presented to the emergency room for initial acute admission with low grade fever, redness, tenderness and swelling on the abdomen. CT showed abcess with surrounding cellulitis. It was drained and was positive for MRSA. He has been on Clindamycin 600 mg IV q.8hr. Initially was given Decadron. He has been on Clindamycin for the past 10 days. He was discharged from acute and placed in swing bed due to the continuing need for IV antibiotics. Dr. Sena was consulted and did not feel that it needed to be incised and drained. We have been doing warm compresses t.i.d. along with Bactroban topically b.i.d. The area is significantly improved. He still has some residual redness although it is fading. The area has gotten smaller is now about 2" x 1" with some induration. The tenderness has improved according to the patient. We are going to discharge him back to the [facility]. Will continue him on Clindamycin 300 mg p.o. t.i.d. for the next five days along with continuing warm compresses t.i.d. as well as continuing Bactroban b.i.d. I will followup with him in the [facility] and to have the CBC and CMP in one week. During his hospital stay all his labs and vitals have remained within normal limits. Other medications were unchanged. He is discharged in stable condition. TIME SPENT: More than 60 minutes. JUDSON
--- NOTE | 2018-09-30 14:28 | PN ---
DATE OF SERVICE: 09/29/18 SUBJECTIVE: The patient was seen and examined with the nurse practitioner. The cellulitis with abscess has decreased in size. Surgical consult doesn't think the patient needs I & D. The patient's condition otherwise is stable. TIME SPENT: More than 30 minutes. Plan and coordination of the patient's care discussed in the presence of nurse. JUDSON
--- NOTE | 2018-09-30 14:30 | PN ---
CODING FOR BILLING 09/23/18 LEVEL 5 09/24/18 INTERMIEDIATE 09/25/18 INTERMEDIATE 09/26/18 INTERMEDIATE 09/27/18 INTERMEDIATE 09/28/18 INTERMEDIATE 09/29/18 DISCHARGE MTDD
--- NOTE | 2018-10-03 09:58 | CONS ---
DATE OF CONSULTATION: 09/28/18 REASON FOR CONSULTATION: I left town on the and came back on the . I did see him on the since he was still in the hospital. The area is much much smaller and the induration is also smaller as well as the redness. The two rounded openings are still present. The other one is much smaller. The grayish-whitish material has a core still in place. It is not easy to remove. There seems to be a slightly fluctuant area in between. There are two areas that has the grayish material. The problem probably will resolve on its own without any incision and drainage at this time. This patient will be followed if and when he still has problems. No surgical intervention is still recommended at this time. JUDSON
== END 2018-09-29 12:00 | DRG 603 ==
LOC: MEDSURG A 14:03
PROVIDERS: ADMIT Internal Medicine; ATTEND Internal Medicine
DX: L03.311 Cellulitis of abdominal wall (principal); B95.62 Methicillin resistant Staphylococcus aureus infection as the cause of diseases classified elsewhere; E87.6 Hypokalemia; E11.9 Type 2 diabetes mellitus without complications; E78.5 Hyperlipidemia, unspecified; N40.0 Benign prostatic hyperplasia without lower urinary tract symptoms; N18.9 Chronic kidney disease, unspecified; J44.9 Chronic obstructive pulmonary disease, unspecified; I10 Essential (primary) hypertension; I25.10 Atherosclerotic heart disease of native coronary artery without angina pectoris; R47.1 Dysarthria and anarthria; F32.9 Major depressive disorder, single episode, unspecified
CPT/HCPCS: 36415; 80053; 82962; 85025; 87081; 97802; 99307

== ENCOUNTER 2019-09-04 14:07 | Inpatient (IN) ==
[2019-09-04 14:57] LABS: HEMATOCRIT 35.7 % (42.0-52.0)
--- NOTE | 2019-09-04 15:40 | CT ---
EXAM: CT chest without contrast HISTORY: Cough COMPARISON: None TECHNIQUE: CT chest performed without intravenous contrast. Coronal and sagittal reformatted images obtained. FINDINGS: The thoracic inlet unremarkable. Heart mildly enlarged. Coronary calcifications. Post C ABG changes. No pericardial effusion. Aorta normal in caliber. Moderate atherosclerosis. Evaluati on for lymphadenopathy limited without contrast. No bulky lymphadenopathy identified. Calcified rig ht hilar lymph nodes, consistent with old granulomatous disease. The no acute abnormalities of the b ones. Degenerative change in the spine. Median sternotomy wires. Chronic endplate changes L1-L2 ar e likely degenerative and similar to CT abdomen pelvis 09/20/2018. Degenerative change in the spine. Central airway patent. Moderate bilateral pleural effusions, right greater than left. Bibasilar a telectasis and/or consolidation. Bilateral interlobular septal thickening and scattered ground-glass , likely interstitial edema. Small area of consolidation right upper lobe. IMPRESSION: 1. Cardiomegaly with findings suggesting pulmonary interstitial edema. Moderate bilateral pleural e ffusions with adjacent atelectasis and/or pneumonia. 2. Small area of consolidation right upper lobe, suspicious for superimposed pneumonia.
--- NOTE | 2019-09-04 15:42 | CT ---
EXAM: CT ABDOMEN AND PELVIS HISTORY: Abdominal pain TECHNIQUE: CT abdomen and pelvis without intravenous contrast. Images were reconstructed using 3 mm section thickness. Reformations were prepared. COMPARISON: 09/20/2018 FINDINGS: Diagnostic limitations exist without including intravenous contrast enhanced images. Image quality d egraded by the arms remaining within the scanning field of view leading to artifact. No focal hepati c or splenic lesions are obvious. Gallbladder and pancreas are within normal limits. No adrenal mas s. There is bilateral perinephric fat stranding which is nonspecific and similar to that previously seen. No hydronephrosis. Probable small right renal cortical cyst. Moderately severe atherosclerot ic disease. Stomach is within normal limits. Normal appendix. Moderate distal colon diverticulosis. Urinary bl adder is within normal limits. No prostate enlargement is seen. No ascites. Small fatty bilateral inguinal hernias are stable. The bones again demonstrate endplate erosion and sclerosis at L1/L2 which is grossly stable since about 1 year back. This may be related to longstand ing degenerative disc disease or previous infection. Active infection would be less likely within th e differential given the stability over time. Correlate clinically. No pneumoperitoneum. See also same day CT chest report. IMPRESSION: 1. Diverticulosis of the colon without diverticulitis. Normal bowel gas pattern. No ascites or fiona e air. Normal appendix. 2. Nonspecific stable bilateral perinephric fat stranding. 3. Atherosclerotic disease. 4. Stable appearance of the bones, specifically at L1/L2 as described in the last paragraph of the r eport.
[2019-09-04] MEDS ORDERED: LASIX IVP STA (17:30)
[2019-09-04] MEDS ORDERED: ROCEPHIN 1 GM/50 ML D5W 1 GM/50 ML BAG IV STA (17:36)
--- NOTE | 2019-09-04 17:36 | ED.PDOC ---
General ED Provider: Dr. TIARA GODOY Chief Complaint: Abdominal Pain Stated Complaint: abdominal pain cough Time Seen by Physician: 14:14 Mode of Arrival: Ambulance Information Source: Detention and EMT Exam Limitations: No limitations Primary Care Provider: IDALIA LAWSON Nursing and Triage Documentation Reviewed and Agree: Yes Does patient meet sepsis criteria?: No If yes, has appropriate treatment been initiated?: No System Inflammatory Response Syndrome: Not Applicable Sepsis Protocol: For patient's 13 years and over: Temp is 96.8 and below OR 101 and greater Pulse >90 BPM Resp >20/minute Acutely Altered Mental Status Are patient's symptoms suggestive of a new infection, such as: -Pneumonia -Skin, Soft Tissue -Endocarditis -UTI -Bone, Joint Infection -Implantable Device -Acute Abdominal Infection -Wound Infection -Meningitis -Blood Stream Catheter Infection -Unknown GI Complaint Exam Abdominal Pain Complaint/Exam Duration: 1 week Symptoms Are: Still present Timing: Constant Initial Severity: Moderate Current Severity: Mild Location of Pain: Diffuse Character: Reports Dull Aggravating: Reports None Alleviating: Reports None Associated Signs and Symptoms: Reports Cough, Urinary frequency and Decreased appetite; Denies Diaphoresis, Fever, Chest pain, Dizziness, Back pain, Constipation, Blood in stool, Dysuria, Decreased urine output, Discharge, Nausea, Vomiting, Diarrhea and Decreased activity AAA Risk Factors: Reports Hypertension Cardiac Risk Factors: Reports DM and Hypertension Testicular Torsion Risk Factors: Reports None Surgical Obstruction Risk Factors: Reports None Related Surgical History: Reports None Abdominal Findings: Present None Genitalia Exam: Present Normal findings Review of Systems Review Of Systems Constitutional: Reports Chills, Malaise, Weakness and Loss of appetite Eyes: Reports No symptoms Ears, Nose, Mouth, Throat: Reports No symptoms Respiratory: Reports Cough Cardiac: Reports No symptoms GI: Reports Abdominal pain : Reports No symptoms Musculoskeletal: Reports No symptoms Skin: Reports No symptoms Neurological: Reports No symptoms Endocrine: Reports No symptoms Hematologic/Lymphatic: Reports No symptoms All Other Systems: Reviewed and Negative Physical Exam Physical Exam Appearance: Well-appearing, No pain distress and Well-nourished Ill-appearing: Mild Pain Distress: Mild Eyes: IZABELA, EOMI and Conjunctiva clear ENT: Ears normal, Nose normal and Oropharynx normal Neck: Supple Respiratory: Airway patent, Breath sounds clear, Breath sounds equal and Respirations nonlabored Cardiovascular: RRR, Pulses normal, No rub and No murmur GI/: Soft, Nontender, No masses, Bowel sounds normal and No Organomegaly Musculoskeletal: Normal strength, ROM intact, No edema and No calf tenderness Skin: Warm, Dry and Normal color Neurological: Sensation intact, Motor intact, Reflexes intact, Cranial nerves intact, Alert and Oriented Psychiatric: Affect appropriate and Mood appropriate Interpretation Radiology Interpretation Radiology Interpretation By: Radiologist Radiology Results: Positive (pneumonia) Physician Notification Case Discussed Physician Notified: pmd Time of Notification: 17:34 Critical Care Note Critical Care Note Total Time (mins): 0 Course Course Hematology/Chemistry: 09/04/19 14:41 09/04/19 14:53 Orders, Labs, Meds: Lab Review 09/04/19 09/04/19 09/04/19 14:41 14:53 14:53 WBC 8.57 RBC 3.97 L Hgb 11.8 L Hct 35.7 L MCV 89.9 MCH 29.7 MCHC 33.1 RDW Coeff of Cyrus 12.6 Plt Count 248 Immature Gran % (Auto) 0.4 Neut % (Auto) 75.7 Lymph % (Auto) 13.4 Foard % (Auto) 7.7 Eos % (Auto) 2.3 Baso % (Auto) 0.5 Immature Gran # (Auto) 0.0 Neut # (Auto) 6.5 Lymph # (Auto) 1.2 Foard # (Auto) 0.7 Eos # (Auto) 0.2 Baso # (Auto) 0.0 Puncture Site O2 Saturation ABG pH ABG pCO2 ABG pO2 ABG HCO3 ABG Total CO2 ABG Base Excess Judd Test FiO2 % Sodium 141.0 Potassium 3.94 Chloride 106.3 Carbon Dioxide 28.3 Anion Gap 10.34 BUN 26.1 H Creatinine 1.45 H Estimated GFR (MDRD) 47.00 BUN/Creatinine Ratio 18.00 Glucose 102.7 Lactic Acid Calcium 8.63 Total Bilirubin 0.47 AST 28.4 ALT 31.1 Alkaline Phosphatase 94.7 Total Creatine Kinase 80.7 Total Protein 6.72 Albumin 3.40 L Globulin 3.32 Albumin/Globulin Ratio 1.02 Procalcitonin Urine Color Urine Clarity Urine pH Ur Specific [place] Urine Protein Urine Glucose (UA) Urine Ketones Urine Blood Urine Nitrite Urine Bilirubin Urine Urobilinogen Ur Leukocyte Esterase Urine Microscopic RBC Ur Squamous Epith Cells 09/04/19 09/04/19 09/04/19 14:53 16:20 16:20 WBC RBC Hgb Hct MCV MCH MCHC RDW Coeff of Cyrus Plt Count Immature Gran % (Auto) Neut % (Auto) Lymph % (Auto) [place] % (Auto) Eos % (Auto) Baso % (Auto) Immature Gran # (Auto) Neut # (Auto) Lymph # (Auto) [place] # (Auto) Eos # (Auto) Baso # (Auto) Puncture Site L radial O2 Saturation 92.0 L ABG pH 7.447 ABG pCO2 40.4 ABG pO2 61.0 L ABG HCO3 27.9 H ABG Total CO2 29 H ABG Base Excess 4 H Judd Test + FiO2 % 21.0 Sodium Potassium Chloride Carbon Dioxide Anion Gap BUN Creatinine Estimated GFR (MDRD) BUN/Creatinine Ratio Glucose Lactic Acid Calcium Total Bilirubin AST ALT Alkaline Phosphatase Total Creatine Kinase Total Protein Albumin Globulin Albumin/Globulin Ratio Procalcitonin < 0.05 Urine Color Yellow Urine Clarity Clear Urine pH 5.5 Ur Specific [place] 1.020 Urine Protein 2+ Urine Glucose (UA) Negative Urine Ketones Negative Urine Blood 1+ Urine Nitrite Negative Urine Bilirubin Negative Urine Urobilinogen 1.0 Ur Leukocyte Esterase Negative Urine Microscopic RBC 0-2 Ur Squamous Epith Cells Not present 09/04/19 16:37 WBC RBC Hgb Hct MCV MCH MCHC RDW Coeff of Cyrus Plt Count Immature Gran % (Auto) Neut % (Auto) Lymph % (Auto) [place] % (Auto) Eos % (Auto) Baso % (Auto) Immature Gran # (Auto) Neut # (Auto) Lymph # (Auto) [place] # (Auto) Eos # (Auto) Baso # (Auto) Puncture Site O2 Saturation ABG pH ABG pCO2 ABG pO2 ABG HCO3 ABG Total CO2 ABG Base Excess Judd Test FiO2 % Sodium Potassium Chloride Carbon Dioxide Anion Gap BUN Creatinine Estimated GFR (MDRD) BUN/Creatinine Ratio Glucose Lactic Acid 0.94 Calcium Total Bilirubin AST ALT Alkaline Phosphatase Total Creatine Kinase Total Protein Albumin Globulin Albumin/Globulin Ratio Procalcitonin Urine Color Urine Clarity Urine pH Ur Specific [place] Urine Protein Urine Glucose (UA) Urine Ketones Urine Blood Urine Nitrite Urine Bilirubin Urine Urobilinogen Ur Leukocyte Esterase Urine Microscopic RBC Ur Squamous Epith Cells Orders Category Date Time Status ABG DRAW REQUEST Stat CARDIO 09/04/19 16:20 Completed EKG-(ED ONLY) Stat CARDIO 09/04/19 14:42 Completed EKG-(IP & OP ONLY) DAILY CARDIO 09/05/19 06:00 Ordered EKG-(IP & OP ONLY) DAILY CARDIO 09/06/19 06:00 Ordered EKG-(IP & OP ONLY) DAILY CARDIO 09/07/19 06:00 Ordered NEBULIZER TREATMENT Routine CARDIO 09/04/19 17:31 Ordered NEUROLOGICAL CHECKS Q4HR CARE 09/04/19 17:30 Active ED IV/MEDIPORT/POWERPORT .ONCE EMERGENCY 09/04/19 14:41 Active ABG Stat LAB 09/04/19 16:20 Completed BLOOD CULTURE (ED ONLY) Stat LAB 09/04/19 16:37 Received CBC W/ AUTO DIFF Stat LAB 09/04/19 14:41 Completed COMPREHENSIVE METABOLIC PANEL Stat LAB 09/04/19 14:53 Completed CREATINE KINASE Q8H LAB 09/04/19 23:30 Ordered CREATINE KINASE Q8H LAB 09/05/19 07:30 Ordered CREATINE KINASE Stat LAB 09/04/19 14:53 Completed LACTIC ACID Stat LAB 09/04/19 16:37 Completed PROCALCITONIN Stat LAB 09/04/19 14:53 Completed PT WITH INR DAILY@0600 LAB 09/05/19 06:00 Ordered PT WITH INR DAILY@0600 LAB 09/06/19 06:00 Ordered TROPONIN I Q8H LAB 09/04/19 23:30 Ordered TROPONIN I Q8H LAB 09/05/19 07:30 Ordered URINALYSIS C & S IF INDICATED Stat LAB 09/04/19 16:20 Completed 0.9 % Sodium Chloride [Saline Flush] MEDS 09/04/19 14:41 Active 1 syr IVF PRN PRN Aspirin [Aspirin EC] MEDS 09/05/19 09:00 Ordered 81 mg PO DAILY Atorvastatin Calcium [Lipitor] MEDS 09/04/19 21:00 Ordered 20 mg PO BEDTIME Ceftriaxone/D5w 1 gm Premix [Rocephin 1 gm/50 ml D5w] MEDS 09/05/19 09:00 Ordered 1 gm in 50 ml IV DAILY Clopidogrel Bisulfate [Plavix] MEDS 09/05/19 09:00 Ordered 75 mg PO DAILY Furosemide [Lasix Tab] MEDS 09/05/19 09:00 Ordered 40 mg PO DAILY Furosemide [Lasix] MEDS 09/04/19 17:30 Discontinued 20 mg IVP ONCE STA Insulin Detemir [Levemir] MEDS 09/04/19 21:00 Ordered 50 unit SUBCUT BEDTIME Insulin Detemir [Levemir] MEDS 09/05/19 08:00 Ordered DOSE unit SUBCUT DAILYWM Ipratropium/Albuterol Neb [Duoneb] MEDS 09/04/19 18:00 Ordered 3 ml NEB RTQ6H Levofloxacin/D5w [Levaquin 500 mg/100 ml D5w] MEDS 09/05/19 09:00 Ordered 500 mg in 100 ml IV DAILY Methylprednisolone Sod Succ/Pf [Solu-Medrol 40 mg] MEDS 09/04/19 21:00 Ordered 40 mg IVP Q12HR Pantoprazole Sodium [Protonix] MEDS 09/05/19 06:30 Ordered 40 mg PO QDAC Paroxetine HCl [Paxil] MEDS 09/05/19 09:00 Ordered 20 mg PO DAILY Polyethylene Glycol 3350 [Miralax] MEDS 09/05/19 09:00 Ordered 17 gm PO DAILY Potassium Chloride [K-Dur] MEDS 09/05/19 09:00 Ordered 20 meq PO DAILY Sodium Chloride 0.9% [Sodium Chloride] 1,000 ml MEDS 09/04/19 17:30 Ordered IV 50 mls/hr Sotalol HCl [Betapace] MEDS 09/04/19 21:00 Ordered 40 mg PO BID Tamsulosin HCl [Flomax] MEDS 09/05/19 09:00 Ordered 0.4 mg PO DAILY lisinopril-hydrochlorothiazide MEDS 09/04/19 21:00 Ordered [address] ABD/PEL WO RENAL STONE PROT Stat RADS 09/04/19 14:[address] CHEST W/O CONTRAST Stat RADS 09/04/19 15:12 Completed Medications Generic Name Dose Route Start Last Admin Trade Name Freq PRN Reason Stop Dose Admin Albuterol/Ipratropium 3 ml 09/04/19 18:00 Duoneb NEB RTQ6H PRUDENCIO Aspirin 81 mg 09/05/19 09:00 Aspirin Ec PO DAILY PRUDENCIO Atorvastatin Calcium 20 mg 09/04/19 21:00 Lipitor PO BEDTIME PRUDENCIO Clopidogrel Bisulfate 75 mg 09/05/19 09:00 Plavix PO DAILY PRUDENCIO Furosemide 40 mg 09/05/19 09:00 Lasix Tab PO DAILY PRUDENCIO Sodium Chloride 1,000 mls @ 50 mls/hr 09/04/19 17:30 Sodium Chloride IV .Q20H PRUDENCIO Levofloxacin/Dextrose 500 mg in 100 mls @ 100 mls/hr 09/05/19 09:00 Levaquin 500 Mg/100 Ml D5w IV 09/08/19 08:59 DAILY PRUDENCIO CEFTRIAXONE/D5W 1 GM PREMIX 1 gm in 50 mls @ 75 mls/hr 09/05/19 09:00 Rocephin 1 Gm/50 Ml D5w IV 09/08/19 08:59 DAILY PRUDENCIO Insulin Detemir 50 unit 09/04/19 21:00 Levemir SUBCUT BEDTIME PRUDENCIO Insulin Detemir unit 09/05/19 08:00 Levemir SUBCUT DAILYWM PRUDENCIO Methylprednisolone Sodium Succinate 40 mg 09/04/19 21:00 Solu-Medrol 40 Mg IVP Q12HR PRUDENCIO Non-Formulary Medication 1 tab 09/04/19 21:00 Lisinopril-Hydrochlorothiazide PO BID PRUDENCIO Pantoprazole Sodium 40 mg 09/05/19 06:30 Protonix PO QDAC PRUDENCIO Paroxetine HCl 20 mg 09/05/19 09:00 Paxil PO DAILY PRUDENCIO Polyethylene Glycol 17 gm 09/05/19 09:00 Miralax PO DAILY PRUDENCIO Potassium Chloride 20 meq 09/05/19 09:00 K-Dur PO DAILY [facility] Sodium Chloride 1 syr 09/04/19 14:41 Saline Flush IVF PRN PRN To flush IV Sotalol HCl 40 mg 09/04/19 21:00 Betapace PO BID PRUDENCIO Tamsulosin HCl 0.4 mg 09/05/19 09:00 Flomax PO DAILY PRUDENCIO Discontinued Medications Generic Name Dose Route Start Last Admin Trade Name Freq PRN Reason Stop Dose Admin Furosemide 20 mg 09/04/19 17:30 Lasix IVP 09/04/19 17:31 ONCE STA Vital Signs: Temp Pulse Resp BP Pulse Ox 09/04/19 14:11 98 F 79 24 121/94 H 93 L Discharge Plan Discharge Patient Disposition: ADMITTED INPATIENT Discharge Problem: Abdominal pain, Pneumonia ED Provider: TIARA GODOY Condition: Good
[2019-09-04 18:28] VITALS: BMI 28.3
[2019-09-04] MEDS: SODIUM CHLORIDE 1,000 ML IV SCH (18:30)
[2019-09-04] MEDS: DUONEB NEB SCH ×2 (18:35→23:30)
[2019-09-04] MEDS: LEVEMIR SUBCUT SCH (20:24)
[2019-09-04] MEDS: BETAPACE PO SCH (20:26)
[2019-09-04] MEDS: LIPITOR PO SCH (20:26)
[2019-09-04] MEDS: SOLU-MEDROL 40 MG IVP SCH (20:27)
[2019-09-04] MEDS ORDERED: LISINOPRIL HYDROCHLOROTHIAZIDE PO SCH ×2 (21:00)
[2019-09-04] MEDS: ZESTRIL PO SCH (21:13)
[2019-09-05] MEDS: DUONEB NEB SCH ×4 (04:34→22:50)
[2019-09-05] MEDS ORDERED: PROTONIX PO SCH (06:30)
[2019-09-05 07:58] LABS: HEMATOCRIT 38.6 % (42.0-52.0)
[2019-09-05] MEDS ORDERED: ZOFRAN 4 MG/2 ML IVP PRN (08:48)
[2019-09-05] MEDS: ROCEPHIN 1 GM/50 ML D5W 1 GM/50 ML BAG IV SCH (09:00)
[2019-09-05] MEDS: SOLU-MEDROL 40 MG IVP SCH ×2 (09:01→20:43)
[2019-09-05] MEDS: MIRALAX PO SCH (09:01)
[2019-09-05] MEDS: BETAPACE PO SCH ×2 (09:02→20:43)
[2019-09-05] MEDS: ASPIRIN EC PO SCH (09:02)
--- NOTE | 2019-09-05 09:02 | PCM.PROG ---
Attending Provider: ATTENDING PROVIDER: Dr. IDALIA LAWSON This patient is seen with Sherri Mak, Nurse Practitioner. DATE OF SERVICE: 09/05/19 SUBJECTIVE: This 78 year old /WHITE M was hospitalized 09/04/19. The patient has vomited once since admission. Kidney functions have been elevated. Coughing. The patient is complaining of discomfort in the periumbilical area. Does have history of pancreatitis. REVIEW OF SYSTEMS: CONSTITUTIONAL: No night sweats. No fatigue, malaise, lethargy. No fever or chills.Weakness. HEENT: Eyes: No visual changes. No eye pain. No eye discharge. ENT: No runny nose. No epistaxis. No sinus pain. No odynophagia. No congestion. RESPIRATORY:Cough, no congestion. No hemoptysis. No shortness of breath. CARDIOVASCULAR: No angina symptoms. No CHF symptoms. No atypical chest pain for CAD. No palpitations. No orthopnea.. GASTROINTESTINAL: No abdominal pain. Nausea. No diarrhea or constipation. No hematemesis. No hematochezia. GENITOURINARY: No urgency. No frequency. No dysuria. No hematuria. No obstructive symptoms. No discharge. No pain. No significant abnormal bleeding. MUSCULOSKELETAL: No musculoskeletal pain; no joint swelling. NEUROLOGICAL: Awake, alert, oriented to time, place and person. No headache. No neck pain. No syncope. No seizures. No dizziness. PSYCHIATRIC: Not anxious. No depression. No suicidal thoughts. No homicidal thoughts. SKIN: No rash. No lesions. No wounds. ENDOCRINE: No unexplained weight loss. No weight gain. HEMATOLOGIC/LYMPHATIC: No anemia. No purpura. No petechiae. No prolonged or excessive bleeding. No palpable lymph nodes. PHYSICAL EXAMINATION: GENERAL: The patient is awake, alert and oriented, lying in bed in no distress. VITAL SIGNS: Temperature 98.1 F, Pulse 79, Respiratory Rate 23, BP 113/74, Pulse Ox 94% HEENT: Head normocephalic, atraumatic. Eyes: Extraocular muscles are intact. Pupils are equal, round and reactive to light and accommodation. Ears: No lesions. Nose appeared normal. Throat: No exudate or erythema. NECK: Supple. No JVD, no carotid bruit. No lymphadenopathy or thyromegaly. LUNGS: Diminished breath sounds. Upper rhonchi bilaterally. Clear to auscultation. Percussion note normal. Chest symmetrical. HEART: S1, S2, no S3. No murmurs. No cyanosis or clubbing. No ascites. Pulses: Dorsalis pedis and posterior tibial pulses +1 to +2 both sides. ABDOMEN: Soft. Mild tenderness periumbilical area. Bowel sounds active. No CVA tenderness. No mass felt. EXTREMITIES: No edema. Full range of motion of all extremities, equal. NEUROLOGIC: No focal deficit. Cranial nerves II through XII are grossly intact. No headache, no double vision or headache. SKIN: Not dry. Intact. Turgor-normal. LYMPHATIC: No palpable lymph nodes/no lymphedema. MUSCULOSKELETAL: Normal joints with no swelling. Muscle tone is normal. LAB REVIEW: 09/05/19 07:50 09/04/19 14:53 09/05/19 07:50: WBC 9.98, RBC 4.19 L, Hgb 12.8 L, Hct 38.6 L, MCV 92.1, MCH 30.5, MCHC 33.2, RDW Coeff of Cyrus 12.7, Plt Count 275, Immature Gran % (Auto) 0.8, Neut % (Auto) 90.1, Lymph % (Auto) 6.7 L, Giles % (Auto) 2.3, Eos % (Auto) 0.0, Baso % (Auto) 0.1, Immature Gran # (Auto) 0.1, Neut # (Auto) 9.0 H, Lymph # (Auto) 0.7, Giles # (Auto) 0.2 L, Eos # (Auto) 0.0, Baso # (Auto) 0.0 09/04/19 23:30: Total Creatine Kinase 82.5, Troponin I 0.048 09/04/19 16:37: Lactic Acid 0.94 09/04/19 16:20: Puncture Site L radial, O2 Saturation 92.0 L, ABG pH 7.447, ABG pCO2 40.4, ABG pO2 61.0 L, ABG HCO3 27.9 H, ABG Total CO2 29 H, ABG Base Excess 4 H, Judd Test +, FiO2 % 21.0 09/04/19 16:20: Urine Color Yellow, Urine Clarity Clear, Urine pH 5.5, Ur Specific [place] 1.020, Urine Protein 2+, Urine Glucose (UA) Negative, Urine Ketones Negative, Urine Blood 1+, Urine Nitrite Negative, Urine Bilirubin Negative, Urine Urobilinogen 1.0, Ur Leukocyte Esterase Negative, Urine Microscopic RBC 0-2, Ur Squamous Epith Cells Not present 09/04/19 14:53: Procalcitonin < 0.05 09/04/19 14:53: Total Creatine Kinase 80.7 09/04/19 14:53: Sodium 141.0, Potassium 3.94, Chloride 106.3, Carbon Dioxide 28.3, Anion Gap 10.34, BUN 26.1 H, Creatinine 1.45 H, Estimated GFR (MDRD) 47.00, BUN/Creatinine Ratio 18.00, Glucose 102.7, Calcium 8.63, Total Bilirubin 0.47, AST 28.4, ALT 31.1, Alkaline Phosphatase 94.7, Total Protein 6.72, Albumin 3.40 L, Globulin 3.32, Albumin/Globulin Ratio 1.02 09/04/19 14:41: WBC 8.57, RBC 3.97 L, Hgb 11.8 L, Hct 35.7 L, MCV 89.9, MCH 29.7, MCHC 33.1, RDW Coeff of Cyrus 12.6, Plt Count 248, Immature Gran % (Auto) 0.4, Neut % (Auto) 75.7, Lymph % (Auto) 13.4, [place]iles % (Auto) 7.7, Eos % (Auto) 2.3, Baso % (Auto) 0.5, Immature Gran # (Auto) 0.0, Neut # (Auto) 6.5, Lymph # (Auto) 1.2, Giles # (Auto) 0.7, Eos # (Auto) 0.2, Baso # (Auto) 0.0 ASSESSMENT: Please see below. 1. Right upper lobe pneumonia 2. Pulmonary edema 3. Dehydration 4. Underlined chronic kidney disease stage 2 5. History of recurrent CVA 6. History of Pancreatitis 7. Diabetes Mellitus type 2 8. Former smoker PLAN: 1. Sliding scale 2. Await CMP results today 3. Continue slow IV fluids 4. Amylase and lipase 5. Zofran 4mg IV Q 6 hours PRN for nausea 6. Continue NEBS Plan and coordination of the patient's care discussed in the presence of High Lift Driver and nurse. SCRIBED BY: THEO CHUN, Industrial Machinery Mechanic scribed while in presence of service performed by Dr. Lawson/Sherri Mak APRN on 09/05/19 ([id number])
[2019-09-05] MEDS: FLOMAX PO SCH (09:03)
[2019-09-05] MEDS: ZESTRIL PO SCH ×2 (09:03→20:43)
[2019-09-05] MEDS: PAXIL PO SCH (09:03)
[2019-09-05] MEDS: K-DUR PO SCH (09:03)
[2019-09-05] MEDS: PLAVIX PO SCH (09:04)
[2019-09-05] MEDS: LEVEMIR SUBCUT SCH ×2 (09:05→20:44)
[2019-09-05] MEDS: LASIX TAB PO SCH (09:09)
[2019-09-05] MEDS: LEVAQUIN 500 MG/100 ML D5W 500 MG/100 ML BAG IV SCH (10:12)
[2019-09-05] MEDS: HUMULIN R SUBCUT SCH ×3 (11:17→20:44)
--- NOTE | 2019-09-05 11:29 | PN ---
DATE OF SERVICE: 09/04/19 SUBJECTIVE: The patient was brought to the emergency room through the long term where he resides. The patient's main problem according to the long term was abdominal pain. The patient had been sent to one of the [facility] a week or so ago where his workup was negative, same as here. His abdominal workup has been negative with negative CT scan and no evidence of pancreatitis or any other acute process. The patient is hard to get history from. He has a CVA with severe dysphasia. CT scan of the chest was done which showed pleural effusion, interstitial edema and right upper lobe pneumonia. The upper lobe pneumonia points to more like an aspiration pneumonitis. The patient has CVA. His overall condition has been deteriorating. The patient has coronary bypass surgery, coronary artery disease, former heavy smoker with severe chronic lung disease. PHYSICAL EXAMINATION: GENERAL: According to the ER physician, the patient was not in any distress. His blood gases looked acceptable and normal with p02 of approximately 65 with oxygen saturation 94% on room air. Normal pH. ASSESSMENT: 1. The patient is going to be hospitalized with diagnosis of right upper lobe pneumonia likely aspiration, could be long term acquired. 2. Also the patient has interstitial edema indicating possibility of CHF. Will do LV function with echocardiogram. PLAN: 1. Put the patient on antibiotics, steroids, nebs treatment. 2. Echocardiogram. 3. Lasix 20 mg IV. 4. Slow IV fluids because of creatinine of 1.4 and BUN of 24 indicating some dehydration. CONDITION: So far is stable. The patient is going to be in the [facility]. TIME SPENT: More than 30 minutes. Plan and coordination of the patient's care discussed in the presence of nurse. JUDSON
[2019-09-05] MEDS: SODIUM CHLORIDE 1,000 ML IV SCH (15:01)
--- NOTE | 2019-09-05 15:05 | DI ---
EXAM: Chest one view HISTORY: Pneumonia COMPARISON: 10/23/2017 TECHNIQUE: Single view of the chest was performed FINDINGS: Heart top normal in size. Mediastinal contour normal, noting atherosclerosis. Median pritesh rnotomy wires. No visible pneumothorax. There are bilateral pleural effusions. Bilateral interstit ial and alveolar opacity. IMPRESSION: Bilateral interstitial and alveolar opacity may represent edema and/or pneumonia. Bilat eral pleural effusions.
[2019-09-05] MEDS: PROTONIX PO SCH (17:18)
[2019-09-05] MEDS ORDERED: ROCEPHIN 1 GM/50 ML D5W 1 GM/50 ML BAG IV SCH (19:00)
[2019-09-05] MEDS: LIPITOR PO SCH (20:43)
[2019-09-06] MEDS: DUONEB NEB SCH ×4 (04:30→23:10)
[2019-09-06 04:40] LABS: HEMATOCRIT 35.2 % (42.0-52.0)
[2019-09-06] MEDS: PROTONIX PO SCH ×2 (05:46→16:46)
[2019-09-06] MEDS: MIRALAX PO SCH (08:59)
[2019-09-06] MEDS: ROCEPHIN 1 GM/50 ML D5W 1 GM/50 ML BAG IV SCH (08:59)
[2019-09-06] MEDS ORDERED: ZESTRIL PO SCH (09:00)
--- NOTE | 2019-09-06 09:01 | PCM.PROG ---
Attending Provider: ATTENDING PROVIDER: Dr. IDALIA LAWSON DATE OF SERVICE: 09/06/19 SUBJECTIVE: This 78 year old /WHITE M was hospitalized 09/04/19 with pneumonia. The patient's chest x-ray yesterday showed pneumonia and or interstitial edema. The patient does not have any symptoms of CHF. Appetite is better. Skin turgor is better. Afebrile. REVIEW OF SYSTEMS: CONSTITUTIONAL: No night sweats. No fatigue, malaise, lethargy. No fever or chills. HEENT: Eyes: No visual changes. No eye pain. No eye discharge. ENT: No runny nose. No epistaxis. No sinus pain. No odynophagia. No congestion. RESPIRATORY: No cough, no congestion. No hemoptysis. No shortness of breath. CARDIOVASCULAR: No angina symptoms. No CHF symptoms. No atypical chest pain for CAD. No palpitations. No orthopnea.. GASTROINTESTINAL: No abdominal pain. No nausea or vomiting. No diarrhea or constipation. No hematemesis. No hematochezia. GENITOURINARY: No urgency. No frequency. No dysuria. No hematuria. No obstructive symptoms. No discharge. No pain. No significant abnormal bleeding. MUSCULOSKELETAL: No musculoskeletal pain; no joint swelling. NEUROLOGICAL: Awake, alert, oriented to time, place and person. No headache. No neck pain. No syncope. No seizures. No dizziness. PSYCHIATRIC: Not anxious. No depression. No suicidal thoughts. No homicidal thoughts. SKIN: No rash. No lesions. No wounds. ENDOCRINE: No unexplained weight loss. No weight gain. HEMATOLOGIC/LYMPHATIC: No anemia. No purpura. No petechiae. No prolonged or excessive bleeding. No palpable lymph nodes. PHYSICAL EXAMINATION: GENERAL: The patient is awake, alert and oriented, lying in bed in no distress. VITAL SIGNS: Temperature 97.5 F, Pulse 78, Respiratory Rate 20, BP 98/59, Pulse Ox 94% HEENT: Head normocephalic, atraumatic. Eyes: Extraocular muscles are intact. Pupils are equal, round and reactive to light and accommodation. Ears: No lesions. Nose appeared normal. Throat: No exudate or erythema. NECK: Supple. No JVD, no carotid bruit. No lymphadenopathy or thyromegaly. LUNGS: Decreased breaths sounds. Clear to auscultation. Percussion note normal. Chest symmetrical. HEART: S1, S2, no S3. No murmurs. No cyanosis or clubbing. No ascites. Pulses: Dorsalis pedis and posterior tibial pulses +1 to +2 both sides. ABDOMEN: Soft. Non-tender. Bowel sounds active. No CVA tenderness. No mass felt. EXTREMITIES: No edema. Full range of motion of all extremities, equal. NEUROLOGIC: No focal deficit. Cranial nerves II through XII are grossly intact. No headache, no double vision or headache. SKIN: Warm and dry. Intact. Turgor-normal. LYMPHATIC: No palpable lymph nodes/no lymphedema. MUSCULOSKELETAL: Normal joints with no swelling. Muscle tone is normal. LAB REVIEW: 09/06/19 04:30 09/06/19 04:30 09/06/19 04:30: Sodium 137.5, Potassium 4.34, Chloride 103.7, Carbon Dioxide 25.1, Anion Gap 13.04, BUN 37.5 H, Creatinine 1.57 H, Estimated GFR (MDRD) 43.00, BUN/Creatinine Ratio 23.88, Glucose 185.0 H, Calcium 8.48, Total Bilirubin 0.38, AST 24.0, ALT 29.6, Alkaline Phosphatase 80.4, Total Protein 6.47, Albumin 3.33 L, Globulin 3.14, Albumin/Globulin Ratio 1.06 09/06/19 04:30: WBC 16.80 H D, RBC 3.84 L, Hgb 11.4 L, Hct 35.2 L, MCV 91.7, MCH 29.7, MCHC 32.4, RDW Coeff of Cyrus 12.8, Plt Count 280, Immature Gran % (Auto) 0.8, Neut % (Auto) 91.4 H, Lymph % (Auto) 4.4 L, Emanuel % (Auto) 3.3, Eos % (Auto) 0.0, Baso % (Auto) 0.1, Immature Gran # (Auto) 0.1, Neut # (Auto) 15.3 H, Lymph # (Auto) 0.7, Emanuel # (Auto) 0.6, Eos # (Auto) 0.0, Baso # (Auto) 0.0 09/06/19 04:30: PT 11.8 H, INR 1.21 09/05/19 07:50: Amylase 56.8, Lipase 214.7 09/05/19 07:50: Sodium 140.7, Potassium 4.15, Chloride 104.9, Carbon Dioxide 26.1, Anion Gap 13.85, BUN 27.9 H, Creatinine 1.42 H, Estimated GFR (MDRD) 48.00, BUN/Creatinine Ratio 19.64, Glucose 199.3 H D, Calcium 8.70, Total Bilirubin 0.47, AST 25.1, ALT 32.5, Alkaline Phosphatase 97.3, Total Creatine Kinase 69.7, Troponin I 0.033, Total Protein 7.15, Albumin 3.74, Globulin 3.41, Albumin/Globulin Ratio 1.09 09/05/19 07:50: PT 11.0, INR 1.13 ASSESSMENT: Please see below. 1. Right upper lobe pneumonia 2. Pulmonary edema 3. Dehydration 4. Underlined chronic kidney disease stage 2 PLAN: 1. Decreased Zestril 5mg PO daily from 10mg BID 2. Echo tomorrow 3. The patient will continue NEBS, Steroids and antibiotics 4. Will monitor cardiovascular status. Plan and coordination of the patient's care discussed in the presence of Lockstitch Back Maker and nurse. CONDITION: Stable SCRIBED BY: Macie RUCKER scribed while in presence of service performed by Dr. IDALIA LAWSON on 09/06/19 ([id number])
[2019-09-06] MEDS: LEVEMIR SUBCUT SCH ×2 (09:03→21:22)
[2019-09-06] MEDS: HUMULIN R SUBCUT SCH ×3 (09:04→21:22)
[2019-09-06] MEDS: SOLU-MEDROL 40 MG IVP SCH ×2 (09:05→21:20)
[2019-09-06] MEDS: FLOMAX PO SCH (09:06)
[2019-09-06] MEDS: ASPIRIN EC PO SCH (09:06)
[2019-09-06] MEDS: BETAPACE PO SCH ×2 (09:06→21:20)
[2019-09-06] MEDS: PLAVIX PO SCH (09:07)
[2019-09-06] MEDS: K-DUR PO SCH (09:07)
[2019-09-06] MEDS: PAXIL PO SCH (09:07)
[2019-09-06] MEDS: ZESTRIL PO SCH (09:08)
[2019-09-06] MEDS: LEVAQUIN 500 MG/100 ML D5W 500 MG/100 ML BAG IV SCH (09:39)
--- NOTE | 2019-09-06 09:59 | HP ---
DATE OF SERVICE: 09/04/19 HISTORY OF PRESENT ILLNESS: The patient is a 78-year-old white male, who is a resident of [facility]. I received a phone call stating that he was having abdominal pain with vomiting. He has also had a mild cough. No fever that we are aware of. PAST MEDICAL HISTORY: Hypertension COPD Former smoker Diabetes mellitus type 2 Coronary artery disease History of CVA with right-sided hemiparesis Dyslipidemia BPH Depression History of pancreatitis History of respiratory failure GERD Anxiety Depression Chronic kidney disease Stage 2 - 3 Carotid stenosis with persistent occlusion of left ICA - the patient quit going to Dr. Williamson on his own, refused to return. History of prostate cancer - the patient went going to urology on his own. He use to see Dr. Hancock. History of noncompliance with diet, lifestyle and medications. History of systolic heart failure with last ejection fraction in 2017 at 20-25%. He refused any referral. PAST SURGICAL HISTORY: CABG, 1989 REVIEW OF SYSTEMS: CONSTITUTIONAL: Positive for fatigue. No night sweats. No malaise, lethargy. No fever or chills. HEENT: Eyes: No visual changes. No eye pain. No eye discharge. ENT: No runny nose. No epistaxis. No sinus pain. No sore throat. No odynophagia. No ear pain. No congestion. RESPIRATORY: Positive for cough. No congestion. No hemoptysis. No shortness of breath. CARDIOVASCULAR: No angina symptoms. No CHF symptoms. No atypical chest pain for CAD. No palpitations. No PND. No orthopnea. GASTROINTESTINAL: Positive for nausea, vomiting and abdominal pain. No diarrhea or constipation. No hematemesis. No hematochezia. GENITOURINARY: No urgency. No frequency. No dysuria. No hematuria. No obstructive symptoms. No discharge. No pain. No significant abnormal bleeding. MUSCULOSKELETAL: No musculoskeletal pain. No joint swelling. No arthritis. NEUROLOGICAL: No headache. No neck pain. No syncope. No seizures. No dizziness. PSYCHIATRIC: Not anxious. No depression. No suicidal thoughts. No homicidal thoughts. SKIN: No rash. No lesions. No wounds. ENDOCRINE: No unexplained weight loss. No weight gain. HEMATOLOGIC/LYMPHATIC: No anemia. No purpura. No petechiae. No prolonged or excessive bleeding. No palpable lymph nodes. PERSONAL/FAMILY/SOCIAL HISTORY: The patient has been in the [facility] for the past two years. He is a former smoker but quit in 2006. He is not but has his ex- as his caregiver. No alcohol or illicit drug use at this time. Again, a long history of noncompliance with diet, lifestyle and medications. MEDICATIONS: (HOME) [place]-3 fatty acids 600 mg p.o. daily Aspirin 81 mg p.o. daily Clopidogrel 75 mg p.o. daily Paroxetine 20 mg p.o. daily Pantoprazole 40 mg p.o. q.d a.c. Furosemide 40 mg p.o. daily Atorvastatin 20 mg p.o. bedtime Tamsulosin (Flomax) 0.4 mg p.o. daily Polyethylene Glycol (Miralax) 17 gm p.o. daily Insulin Detemir U-100 (Levemir) 50 units subcut daily with meal Sotalol (Betapace) 40 mg p.o. b.i.d. Levemir 50 unit subcut bedtime Potassium Chloride 20 mEq p.o. daily Lisinopril 10 mg p.o. b.i.d. ALLERGIES: NKDA PHYSICAL EXAMINATION: VITAL SIGNS: Temperature 98, heart rate 79, respirations 24, BP 121/94, pulse ox 92% on room air. HEENT: Head normocephalic, atraumatic. Eyes: Extraocular muscles are intact. Pupils are equal, round and reactive to light and accommodation. Ears: No lesions. Nose appeared normal. Throat: No exudate or erythema. NECK: Supple. No JVD, no carotid bruit. No lymphadenopathy or thyromegaly. LUNGS: Diminished breath sounds bilaterally. Clear to auscultation. Percussion note normal. Chest symmetrical. HEART: S1, S2, no S3. No murmur. No cyanosis or clubbing. No ascites. Pulses: Dorsalis pedis and posterior tibial pulses +1 to +2 bilaterally. ABDOMEN: Soft. Nontender. Bowel sounds active. No CVA tenderness. No mass felt. EXTREMITIES: No leg edema. Full range of motion of all extremities, equal. NEUROLOGIC: No focal deficit. Cranial nerves II through XII are grossly intact. No headache, no double vision or headache. SKIN: Not dry. Intact. Turgor - normal. LYMPHATIC: No palpable lymph nodes/no lymphedema. MUSCULOSKELETAL: Normal joints with no swelling. Muscle tone is normal. LABS/ABG/IMAGING: White count 8.57, hemoglobin 11.8, hematocrit 35.7, platelets 248. Sodium 141, potassium 3.9, BUN 26, creatinine 1.45, glucose 102. Total CK-MB 0.7, total protein 6.7, albumin 3.4, alkaline phosphatase 94. ABG on room air: 02 sat 92, pH 7.447, pc02 40, p02 61, bicarb 27.9, total c02 29, base excess of 4. Urine 2+ protein, 1+ blood, lactic acid 0.94. CT of the abdomen and pelvis shows diverticulosis without diverticulitis. Nonspecific stable bilateral perinephric fat stranding. Atherosclerotic disease. CT of the chest shows cardiomegaly with findings suggesting pulmonary interstitial edema, moderate bilateral pleural effusions with adjacent atelectasis vs pneumonia, small area of consolidation right upper lobe suspicious for superimposed pneumonia. ASSESSMENT: 1. RIGHT LOBE PNEUMONIA 2. ACUTE DEHYDRATION 3. VOMITING 4. HISTORY OF COPD 5. HISTORY OF SYSTOLIC HEART FAILURE WITH EJECTION FRACTION BETWEEN 20-30% 6. HYPERTENSION 7. DIABETES MELLITUS, TYPE 2 8. LONG HISTORY OF NONCOMPLIANCE WITH DIET, LIFESTYLE AND MEDICATIONS 9. HISTORY OF RECURRENT PANCREATITIS PLAN: 1. We will admit to [facility]. 2. CBC, CMP daily. 3. Slow IV fluids, NS at 50 cc/hr. 4. The patient received 20 mg of Lasix IV in the emergency room. 5. Start Rocephin 1 gm IV daily along with Zithromax 500 mg p.o. daily times three days. 6. Solu-Cortef 125 mg IV q.8hr. 7. Duonebs q.6hr PRUDENCIO. 8. Urine for culture and sensitivity. 9. Oxygen at 1 to 2L as needed. 10. Regular diet. 11. Sliding scale for insulin coverage due to diabetes, already on insulin. 12. Will follow closely. 13. Amylase and lipase. 14. Pick[place] diet. 15. Zofran 4 mg IV q.6hr p.r.n. TIME SPENT: More than 70 minutes. MTDD
[2019-09-06] MEDS: SODIUM CHLORIDE 1,000 ML IV SCH (13:20)
[2019-09-06] MEDS: LIPITOR PO SCH (21:20)
[2019-09-07] MEDS ORDERED: XOPENEX 0.63 MG NEB ONE (00:17)
[2019-09-07] MEDS ORDERED: DUONEB NEB STA (00:52)
[2019-09-07] MEDS ORDERED: XOPENEX 0.63 MG NEB STA (01:02)
[2019-09-07] MEDS: DUONEB NEB SCH ×4 (04:40→22:50)
[2019-09-07] MEDS: PROTONIX PO SCH ×2 (05:36→16:18)
[2019-09-07] MEDS: HUMULIN R SUBCUT SCH ×4 (06:23→17:43)
[2019-09-07] MEDS: LASIX TAB PO SCH (06:48)
[2019-09-07] MEDS: ROCEPHIN 1 GM/50 ML D5W 1 GM/50 ML BAG IV SCH (08:47)
--- NOTE | 2019-09-07 08:49 | PCM.PROG ---
Attending Provider: ATTENDING PROVIDER: Dr. IDALIA LAWSON This patient is seen with Sherri Mak, Nurse Practitioner. DATE OF SERVICE: 09/07/19 SUBJECTIVE: This 78 year old /WHITE M was hospitalized 09/04/19. The patient had an episode last night with shortness of breath, trouble clearing secretions and coughing. The patient states that he is not feeling short of breath this morning however he is on 2 liters of nasal cannula. Kidney function is worsening. He has been drinking well. REVIEW OF SYSTEMS: CONSTITUTIONAL: No night sweats. No fatigue, malaise, lethargy. No fever or chills. Weakness. HEENT: Eyes: No visual changes. No eye pain. No eye discharge. ENT: No runny nose. No epistaxis. No sinus pain. No odynophagia. No congestion. RESPIRATORY: Cough, no congestion. No hemoptysis. Shortness of breath. CARDIOVASCULAR: No angina symptoms. No CHF symptoms. No atypical chest pain for CAD. No palpitations. No orthopnea.. GASTROINTESTINAL: No abdominal pain. No nausea or vomiting. No diarrhea or constipation. No hematemesis. No hematochezia. GENITOURINARY: No urgency. No frequency. No dysuria. No hematuria. No obstructive symptoms. No discharge. No pain. No significant abnormal bleeding. MUSCULOSKELETAL: No musculoskeletal pain; no joint swelling. NEUROLOGICAL: Awake, alert, oriented to time, place and person. No headache. No neck pain. No syncope. No seizures. No dizziness. PSYCHIATRIC: Not anxious. No depression. No suicidal thoughts. No homicidal thoughts. SKIN: No rash. No lesions. No wounds. ENDOCRINE: No unexplained weight loss. No weight gain. HEMATOLOGIC/LYMPHATIC: No anemia. No purpura. No petechiae. No prolonged or excessive bleeding. No palpable lymph nodes. PHYSICAL EXAMINATION: GENERAL: The patient is awake, alert and oriented, lying in bed in no distress. VITAL SIGNS: Temperature 97.5 F, Pulse 83, Respiratory Rate 19, BP 104/65, Pulse Ox 96% HEENT: Head normocephalic, atraumatic. Eyes: Extraocular muscles are intact. Pupils are equal, round and reactive to light and accommodation. Ears: No lesions. Nose appeared normal. Throat: No exudate or erythema. NECK: Supple. No JVD, no carotid bruit. No lymphadenopathy or thyromegaly. LUNGS: Diminished breath sounds. Clear to auscultation. Percussion note normal. Chest symmetrical. HEART: S1, S2, no S3. No murmurs. No cyanosis or clubbing. No ascites. Pulses: Dorsalis pedis and posterior tibial pulses +1 to +2 both sides. ABDOMEN: Soft. Non-tender. Bowel sounds active. No CVA tenderness. No mass felt. EXTREMITIES: No edema. Full range of motion of all extremities, equal. NEUROLOGIC: No focal deficit. Cranial nerves II through XII are grossly intact. No headache, no double vision or headache. SKIN: Not dry. Intact. Turgor-normal. LYMPHATIC: No palpable lymph nodes/no lymphedema. MUSCULOSKELETAL: Normal joints with no swelling. Muscle tone is normal. LAB REVIEW: 09/07/19 05:22 09/07/19 05:22 09/07/19 05:22: Sodium 138.6, Potassium 5.09, Chloride 105.8, Carbon Dioxide 22.8, Anion Gap 15.09, BUN 52.0 H, Creatinine 1.65 H, Estimated GFR (MDRD) 41. 00, BUN/Creatinine Ratio 31.51, Glucose 174.2 H, Calcium 8.74, Total Bilirubin 0.39, AST 79.7 H D, ALT 121.8 H D, Alkaline Phosphatase 129.5 H D, Total Protein 6.63, Albumin 3.53, Globulin 3.10, Albumin/Globulin Ratio 1.13 09/07/19 05:22: WBC 18.16 H, RBC 3.87 L, Hgb 11.8 L, Hct 37.0 L, MCV 95.6 H, MCH 30.5, MCHC 31.9, RDW Coeff of Cyrus 13.2, Plt Count 282, Immature Gran % (Auto) 1.3, Neut % (Auto) 91.7 H, Lymph % (Auto) 3.6 L, [place] % (Auto) 3.2, Eos % (Auto) 0.1, Baso % (Auto) 0.1, Immature Gran # (Auto) 0.2, Neut # (Auto) 16.7 H, Lymph # (Auto) 0.7, [place] # (Auto) 0.6, Eos # (Auto) 0.0, Baso # (Auto) 0.0 09/07/19 01:14: Puncture Site Lbrach, O2 Saturation 91.0 L, ABG pH 7.348 L, ABG pCO2 41.2, ABG pO2 65.0 L, ABG HCO3 22.6, ABG Total CO2 24, ABG Base Excess -3 L , Judd Test +, O2 Delivery Device Nc, Oxygen Liter Flow 3.00, FiO2 % 32.0 09/07/19 00:30: Puncture Site Lrad, O2 Saturation 86.0 L, ABG pH 7.284 L*, ABG pCO2 47.2 H, ABG pO2 58.0 L*, ABG HCO3 22.4, ABG Total CO2 24, ABG Base Excess - 4 L, Judd Test +, O2 Delivery Device Venti mask, Oxygen Liter Flow 14.00, FiO2 % 55.0 ASSESSMENT: Please see below. 1. Shortness of breath 2. Right lobular pneumonia 3. Underlining CHF 4. Renal azotemia with underlining chronic kidney disease 5. Diabetes mellitus type 2 PLAN: 1. BNP 2. Repeat chest x-ray this morning 3. Discontinue IV fluids 4. Pulmicort NEB 1 mg BID Plan and coordination of the patient's care discussed in the presence of Underground Drill Operator and nurse. SCRIBED BY: THEO CHUN Supervisor Clam Bed scribed while in presence of service performed by Dr. Lawson/Sherri Mak APRN on 09/07/19 ([id number])
[2019-09-07] MEDS: ASPIRIN EC PO SCH (08:51)
[2019-09-07] MEDS: BETAPACE PO SCH ×2 (08:51→20:26)
[2019-09-07] MEDS: PLAVIX PO SCH (08:51)
[2019-09-07] MEDS: FLOMAX PO SCH (08:52)
[2019-09-07] MEDS: ZESTRIL PO SCH (08:52)
[2019-09-07] MEDS: PAXIL PO SCH (08:52)
[2019-09-07] MEDS: K-DUR PO SCH (08:53)
[2019-09-07] MEDS: MIRALAX PO SCH (08:53)
[2019-09-07] MEDS: LEVEMIR SUBCUT SCH ×2 (08:54→20:27)
[2019-09-07] MEDS ORDERED: HUMULIN R SUBCUT SCH (09:00)
[2019-09-07] MEDS ORDERED: LASIX IVP STA (09:03)
[2019-09-07] MEDS: LEVAQUIN 500 MG/100 ML D5W 500 MG/100 ML BAG IV SCH (09:24)
--- NOTE | 2019-09-07 09:25 | PN ---
DATE OF SERVICE: 09/05/2019 SUBJECTIVE: The patient was seen and examined with the Nurse Practitioner. The patient's condition seems to be somewhat improved but he is confused. Unable to figure out what he says he has aphasia, severe. Cardiovascular status seems to be stable. No evidence of CHF type of symptoms. No evidence of CHF clinically. Pneumonia seems to be improving some. The patient had serum amylase and lipase the reports are pending. PHYSICAL EXAMINATION: HEENT: Head normocephalic, atraumatic. Eyes: Extraocular muscles are intact. Pupils are equal, round and reactive to light and accommodation. Ears: No lesions. Nose appeared normal. Throat: No exudate or erythema. NECK: Supple. No JVD, no carotid bruit. No lymphadenopathy or thyromegaly. LUNGS: Decreased breath sounds with right sided basal creptitations Clear to auscultation. Percussion note normal. Chest symmetrical. HEART: S1, S2, no S3. No murmurs. No cyanosis or clubbing. No ascites. Pulses: Dorsalis pedis and posterior tibial pulses +1 to +2 bilaterally. ABDOMEN: Soft. Nontender. Bowel sounds active. No CVA tenderness. No mass felt. EXTREMITIES: No edema. Full range of motion of all extremities, equal. NEUROLOGIC: No focal deficit. Cranial nerves II through XII are grossly intact. No headache, no double vision or headache. SKIN: Not dry. Intact. Turgor - normal. LYMPHATIC: No palpable lymph nodes/no lymphedema. MUSCULOSKELETAL: Normal joints with no swelling. Muscle tone is normal. The patient is a DNR. He is being treated for pneumonia. He is being watched for any acute pancreatitis type of symptoms. CONDITION: Stable PROGNOSIS: Guarded TIME SPENT: More than 30 minutes. Plan and coordination of the patient's care discussed in the presence of nurse. JUDSON
--- NOTE | 2019-09-07 09:44 | DI ---
EXAM: Chest one view HISTORY: Shortness of breath COMPARISON: 09/05/2019 TECHNIQUE: Single view of the chest was performed FINDINGS: Heart is enlarged. Mediastinal contour unchanged. Median sternotomy wires. No visible p neumothorax. Pulmonary vascular congestion. Small bilateral pleural effusions. Bibasilar atelectas is and/or consolidation. IMPRESSION: Cardiomegaly with findings suggesting pulmonary edema. Small bilateral pleural effusion s. Bibasilar atelectasis and/or pneumonia.
[2019-09-07] MEDS: SOLU-MEDROL 40 MG IVP SCH ×2 (09:56→20:37)
[2019-09-07] MEDS: SODIUM CHLORIDE 1,000 ML IV SCH (16:19)
[2019-09-07] MEDS: PULMICORT 1 MG/2 ML NEB SCH (16:50)
[2019-09-07] MEDS: LIPITOR PO SCH (20:25)
[2019-09-08] MEDS: PULMICORT 1 MG/2 ML NEB SCH ×2 (05:00→16:57)
[2019-09-08] MEDS: DUONEB NEB SCH ×4 (05:00→22:30)
[2019-09-08 05:26] LABS: HEMATOCRIT 35.6 % (42.0-52.0)
[2019-09-08] MEDS: PROTONIX PO SCH ×2 (05:50→17:39)
[2019-09-08] MEDS: LASIX TAB PO SCH (05:50)
--- NOTE | 2019-09-08 08:30 | PCM.PROG ---
Attending Provider: ATTENDING PROVIDER: Dr. IDALIA LAWSON This patient is seen with Sherri Mak, Nurse Practitioner. DATE OF SERVICE: 09/08/19 SUBJECTIVE: This 78 year old /WHITE M was hospitalized 09/04/19. The patient is resting comfortably. Shortness of breath has improved. He ate well yesterday. Kidney function is stable. No abdominal pain. REVIEW OF SYSTEMS: CONSTITUTIONAL: No night sweats. No fatigue, malaise, lethargy. No fever or chills. HEENT: Eyes: No visual changes. No eye pain. No eye discharge. ENT: No runny nose. No epistaxis. No sinus pain. No odynophagia. No congestion. RESPIRATORY: Cough, no congestion. No hemoptysis. Shortness of breath. CARDIOVASCULAR: No angina symptoms. No CHF symptoms. No atypical chest pain for CAD. No palpitations. No orthopnea.. GASTROINTESTINAL: No abdominal pain. No nausea or vomiting. No diarrhea or constipation. No hematemesis. No hematochezia. GENITOURINARY: No urgency. No frequency. No dysuria. No hematuria. No obstructive symptoms. No discharge. No pain. No significant abnormal bleeding. MUSCULOSKELETAL: No musculoskeletal pain; no joint swelling. NEUROLOGICAL: Awake, alert, oriented to time, place and person. No headache. No neck pain. No syncope. No seizures. No dizziness. PSYCHIATRIC: Not anxious. No depression. No suicidal thoughts. No homicidal thoughts. SKIN: No rash. No lesions. No wounds. ENDOCRINE: No unexplained weight loss. No weight gain. HEMATOLOGIC/LYMPHATIC: No anemia. No purpura. No petechiae. No prolonged or excessive bleeding. No palpable lymph nodes. PHYSICAL EXAMINATION: GENERAL: The patient is awake, alert and oriented, lying in bed in no distress. VITAL SIGNS: Temperature 98.1 F, Pulse 83, Respiratory Rate 20, BP 123/78, Pulse Ox 97% HEENT: Head normocephalic, atraumatic. Eyes: Extraocular muscles are intact. Pupils are equal, round and reactive to light and accommodation. Ears: No lesions. Nose appeared normal. Throat: No exudate or erythema. NECK: Supple. No JVD, no carotid bruit. No lymphadenopathy or thyromegaly. LUNGS: Diminished breath sounds. Clear to auscultation. Percussion note normal. Chest symmetrical. HEART: S1, S2, no S3. No murmurs. No cyanosis or clubbing. No ascites. Pulses: Dorsalis pedis and posterior tibial pulses +1 to +2 both sides. ABDOMEN: Soft. Non-tender. Bowel sounds active. No CVA tenderness. No mass felt. EXTREMITIES: No edema. Full range of motion of all extremities, equal. NEUROLOGIC: No focal deficit. Cranial nerves II through XII are grossly intact. No headache, no double vision or headache. SKIN: Not dry. Intact. Turgor-normal. LYMPHATIC: No palpable lymph nodes/no lymphedema. MUSCULOSKELETAL: Normal joints with no swelling. Muscle tone is normal. LAB REVIEW: 09/08/19 05:07 09/08/19 05:07 09/08/19 05:07: Sodium 141.3, Potassium 4.62, Chloride 106.2, Carbon Dioxide 22.4, Anion Gap 17.32, BUN 53.9 H, Creatinine 1.59 H, Estimated GFR (MDRD) 42.00, BUN/Creatinine Ratio 33.89, Glucose 196.3 H, Calcium 8.50, Total Bilirubin 0.38, AST 33.2 D, ALT 86.0 H D, Alkaline Phosphatase 114.6, Total Protein 6.33, Albumin 3.39 L, Globulin 2.94, Albumin/Globulin Ratio 1.15 09/08/19 05:07: WBC 17.39 H, RBC 3.81 L, Hgb 11.5 L, Hct 35.6 L, MCV 93.4, MCH 30.2, MCHC 32.3, RDW Coeff of Cyrus 13.0, Plt Count 253, Neutrophils % (Manual) 85.0 H, Band Neutrophils % 4.0, Lymphocytes % (Manual) 7.0 L, Monocytes % (Manual) 4.0, Anisocytosis Not present 09/07/19 05:22: NT-Pro-B Natriuret Pep 7860.000 H ASSESSMENT: Please see below. 1. Shortness of breath-Improved. 2. Right lobular pneumonia 3. Underlining CHF 4. Renal azotemia with underlining chronic kidney disease 5. Diabetes mellitus type 2 6. CHF echo results pending. PLAN: 1. Discontinue Solu-Medrol 2. Prednisone 10mg BID 3. Continue Rocephin through weekend Plan and coordination of the patient's care discussed in the presence of Chalk Cutter and nurse. SCRIBED BY: THEO CHUN Nursing Service Director scribed while in presence of service performed by Dr. Lawson/Sherri Mak APRN on 09/08/19 ([id number])
[2019-09-08] MEDS: FLOMAX PO SCH (09:03)
[2019-09-08] MEDS: PAXIL PO SCH (09:03)
[2019-09-08] MEDS: ZESTRIL PO SCH (09:03)
[2019-09-08] MEDS: ASPIRIN EC PO SCH (09:03)
[2019-09-08] MEDS: K-DUR PO SCH (09:03)
[2019-09-08] MEDS: PLAVIX PO SCH (09:03)
[2019-09-08] MEDS: MIRALAX PO SCH (09:03)
[2019-09-08] MEDS: BETAPACE PO SCH ×2 (09:03→21:30)
[2019-09-08] MEDS: LEVEMIR SUBCUT SCH ×2 (09:04→21:31)
[2019-09-08] MEDS: PREDNISONE PO SCH ×2 (09:04→17:39)
[2019-09-08] MEDS: LEVAQUIN 500 MG/100 ML D5W 500 MG/100 ML BAG IV SCH (09:08)
[2019-09-08] MEDS: SODIUM CHLORIDE 1,000 ML IV SCH (09:08)
[2019-09-08] MEDS: HUMULIN R SUBCUT SCH ×3 (09:30→17:40)
--- NOTE | 2019-09-08 11:24 | ECHO2D ---
Date of Exam: 09/07/19 Ordering Physician: DR. IDALIA LAWSON Room #: SCU1 Reason for Echo: HTN, DM, CVA, CAD, CABG, PULMONARY EDEMA M-Mode Normal Adult Results LV Dimensions Normal Adult Results AoV Opening excursions >1.6 >1.6 LVEDD-base- 3.5-5.8 6.4 Ao root dimensions 2.0-3.7 3.5 LVESD-base- 3.1-4.6 L. Atrium dimensions 1.9-3.8 4.9 Post. Wall thickness 0.8-1.1 1.1 IV septum (thickness) 0.7-1.2 1.2 Post. Wall excursion 0.72-1.3 0.7 Septal motion 0.4 Systolic motion R. Ventricular cavity 1.5-2.0 NORMAL LVEF 60% 35% Paradoxical septal wall motion NORMAL 2-D : HYPOKINETIC LEFT VENTRICLE ESPECIALLY SEPTAL WALL--ENLARGED LEFT ATRIAL CAVITY--VALVES NORMAL--NO EFFUSION, NO THROMBUS--ENLARGED LEFT VENTRICLE CAVITY M-MODE: MV: NORMAL AV: NORMAL TV: NORMAL PV: CHAMBER SIZE: ENLARGED LEFT ATRIAL AND LEFT VENTRICLE CAVITY WALL MOTION: HYPOKINETIC LEFT VENTRICLE-ESPECIALLY SEPTAL WALL-EJECTION FRACTION 35% PERICARDIUM: NORMAL INTERPRETATION: 1. BORDERLINE LEFT VENTRICULAR HYPERTROPHY 2. ENLARGED LEFT ATRIAL AND LEFT VENTRICLE CAVITIES 3. HYPOKINETIC LEFT VENTRICLE--ESPECIALLY SEPTAL WALL WITH EJECTION FRACTION 35% 4. NORMAL VALVES 5. MODERATE MITRAL REGURGITATION MTDD
--- NOTE | 2019-09-08 11:54 | PN ---
DATE OF SERVICE: 09/07/2019 SUBJECTIVE: The patient was seen and examined this morning with the Nurse Practitioner. The patient's condition is stable. Last night the patient had shortness of breath and was put on Venturi mask 3 liters. His blood gasses improved with Oxygen saturation of 93% with 3 liters. This morning he is sitting up and eating his breakfast. No distress. Pneumonia seems to be improving. The patient may have a touch of congestive heart failure. We will do an echocardiogram to evaluate LV function. The patient supposedly has ejection 20-30%. CONDITION: Stabilizing. TIME SPENT: More than 30 minutes. Plan and coordination of the patient's care discussed in the presence of nurse. JUDSON
[2019-09-08] MEDS: ROCEPHIN 1 GM/50 ML D5W 1 GM/50 ML BAG IV SCH (12:49)
[2019-09-08] MEDS: LIPITOR PO SCH (21:30)
[2019-09-09] MEDS: PULMICORT 1 MG/2 ML NEB SCH ×2 (05:00→17:26)
[2019-09-09] MEDS: DUONEB NEB SCH ×4 (05:00→23:02)
[2019-09-09] MEDS: PROTONIX PO SCH ×2 (05:58→17:11)
[2019-09-09] MEDS: LASIX TAB PO SCH (05:58)
[2019-09-09 07:44] LABS: HEMATOCRIT 36.2 % (42.0-52.0)
[2019-09-09] MEDS ORDERED: CITRATE OF MAGNESIA PO STA (08:54)
[2019-09-09] MEDS: MIRALAX PO SCH (09:20)
[2019-09-09] MEDS: ASPIRIN EC PO SCH (09:20)
[2019-09-09] MEDS: BETAPACE PO SCH ×2 (09:21→20:51)
[2019-09-09] MEDS: PREDNISONE PO SCH ×2 (09:21→17:11)
[2019-09-09] MEDS: FLOMAX PO SCH (09:21)
[2019-09-09] MEDS: K-DUR PO SCH (09:21)
[2019-09-09] MEDS: ZESTRIL PO SCH (09:21)
[2019-09-09] MEDS: PAXIL PO SCH (09:21)
[2019-09-09] MEDS: PLAVIX PO SCH (09:22)
[2019-09-09] MEDS: ROCEPHIN 1 GM/50 ML D5W 1 GM/50 ML BAG IV SCH ×2 (09:22→10:01)
[2019-09-09] MEDS: LEVEMIR SUBCUT SCH ×2 (09:22→20:51)
[2019-09-09] MEDS: HUMULIN R SUBCUT SCH ×3 (09:39→16:43)
[2019-09-09] MEDS: LEVAQUIN 500 MG/100 ML D5W 500 MG/100 ML BAG IV SCH (11:01)
[2019-09-09] MEDS: LIPITOR PO SCH (20:51)
[2019-09-10 04:32] LABS: HEMATOCRIT 36.4 % (42.0-52.0)
[2019-09-10] MEDS: DUONEB NEB SCH ×4 (04:45→23:20)
[2019-09-10] MEDS: PULMICORT 1 MG/2 ML NEB SCH ×2 (04:45→17:47)
[2019-09-10] MEDS: PROTONIX PO SCH ×2 (05:41→17:20)
[2019-09-10] MEDS: LASIX TAB PO SCH (05:41)
[2019-09-10] MEDS: K-DUR PO SCH (09:07)
[2019-09-10] MEDS: ASPIRIN EC PO SCH (09:07)
[2019-09-10] MEDS: ROCEPHIN 1 GM/50 ML D5W 1 GM/50 ML BAG IV SCH (09:07)
[2019-09-10] MEDS: PAXIL PO SCH (09:07)
[2019-09-10] MEDS: PLAVIX PO SCH (09:08)
[2019-09-10] MEDS: FLOMAX PO SCH (09:08)
[2019-09-10] MEDS: BETAPACE PO SCH ×2 (09:08→20:30)
[2019-09-10] MEDS: ZESTRIL PO SCH (09:08)
[2019-09-10] MEDS: PREDNISONE PO SCH ×2 (09:08→17:20)
[2019-09-10] MEDS: HUMULIN R SUBCUT SCH ×3 (09:09→17:20)
[2019-09-10] MEDS: MIRALAX PO SCH (09:09)
[2019-09-10] MEDS: LEVEMIR SUBCUT SCH ×2 (09:10→20:31)
[2019-09-10] MEDS: LIPITOR PO SCH (20:30)
[2019-09-11] MEDS: DUONEB NEB SCH ×2 (04:55→11:00)
[2019-09-11] MEDS: PULMICORT 1 MG/2 ML NEB SCH (04:55)
[2019-09-11 05:03] LABS: HEMATOCRIT 38.6 % (42.0-52.0)
[2019-09-11] MEDS: LASIX TAB PO SCH (05:54)
[2019-09-11] MEDS: PROTONIX PO SCH (05:54)
[2019-09-11] MEDS: MIRALAX PO SCH (08:33)
[2019-09-11] MEDS: FLOMAX PO SCH (08:34)
[2019-09-11] MEDS: ZESTRIL PO SCH (08:35)
[2019-09-11] MEDS: ASPIRIN EC PO SCH (08:35)
[2019-09-11] MEDS: PREDNISONE PO SCH (08:35)
[2019-09-11] MEDS: BETAPACE PO SCH (08:36)
[2019-09-11] MEDS: K-DUR PO SCH (08:36)
[2019-09-11] MEDS: PLAVIX PO SCH (08:37)
[2019-09-11] MEDS: PAXIL PO SCH (08:37)
[2019-09-11] MEDS: HUMULIN R SUBCUT SCH ×2 (08:37→11:51)
[2019-09-11] MEDS: LEVEMIR SUBCUT SCH (08:43)
[2019-09-11] MEDS: ROCEPHIN 1 GM/50 ML D5W 1 GM/50 ML BAG IV SCH (08:46)
--- NOTE | 2019-09-11 09:04 | PCM.PROG ---
Attending Provider: ATTENDING PROVIDER: Dr. IDALIA LAWSON This patient is seen with Sherri Mak, Nurse Practitioner. DATE OF SERVICE: 09/11/19 SUBJECTIVE: This 78 year old /WHITE M was hospitalized 09/04/19. The patient is lying in bed resting comfortably. Cough and shortness of breath significantly improved. Kidney function stable. He has been eating well. REVIEW OF SYSTEMS: CONSTITUTIONAL: No night sweats. No fatigue, malaise, lethargy. No fever or chills. HEENT: Eyes: No visual changes. No eye pain. No eye discharge. ENT: No runny nose. No epistaxis. No sinus pain. No odynophagia. No congestion. RESPIRATORY: Cough and shortness of breath. No hemoptysis. CARDIOVASCULAR: No angina symptoms. No CHF symptoms. No atypical chest pain for CAD. No palpitations. No orthopnea.. GASTROINTESTINAL: No abdominal pain. No nausea or vomiting. No diarrhea or constipation. No hematemesis. No hematochezia. GENITOURINARY: No urgency. No frequency. No dysuria. No hematuria. No obstructive symptoms. No discharge. No pain. No significant abnormal bleeding. MUSCULOSKELETAL: No musculoskeletal pain; no joint swelling. NEUROLOGICAL: Awake, alert, oriented to time, place and person. No headache. No neck pain. No syncope. No seizures. No dizziness. PSYCHIATRIC: Not anxious. No depression. No suicidal thoughts. No homicidal thoughts. SKIN: No rash. No lesions. No wounds. ENDOCRINE: No unexplained weight loss. No weight gain. HEMATOLOGIC/LYMPHATIC: No anemia. No purpura. No petechiae. No prolonged or excessive bleeding. No palpable lymph nodes. PHYSICAL EXAMINATION: GENERAL: The patient is awake, alert and oriented, lying/sitting in bed in no distress. VITAL SIGNS: Temperature 97.5 F, Pulse 92, Respiratory Rate 20, BP 129/72, Pulse Ox 100% HEENT: Head normocephalic, atraumatic. Eyes: Extraocular muscles are intact. Pupils are equal, round and reactive to light and accommodation. Ears: No lesions. Nose appeared normal. Throat: No exudate or erythema. NECK: Supple. No JVD, no carotid bruit. No lymphadenopathy or thyromegaly. LUNGS: Diminished breath sounds. Clear to auscultation. Percussion note normal. Chest symmetrical. HEART: S1, S2, no S3. No murmurs. No cyanosis or clubbing. No ascites. Pulses: Dorsalis pedis and posterior tibial pulses +1 to +2 both sides. ABDOMEN: Soft. Non-tender. Bowel sounds active. No CVA tenderness. No mass felt. EXTREMITIES: No edema. Full range of motion of all extremities, equal. NEUROLOGIC: No focal deficit. Cranial nerves II through XII are grossly intact. No headache, no double vision or headache. SKIN: Not dry. Intact. Turgor-normal. LYMPHATIC: No palpable lymph nodes/no lymphedema. MUSCULOSKELETAL: Normal joints with no swelling. Muscle tone is normal. LAB REVIEW: 09/11/19 04:55 09/11/19 04:55 09/11/19 04:55: Sodium 138.2, Potassium 4.51, Chloride 100.4, Carbon Dioxide 35.4 H, Anion Gap 6.91, BUN 42.2 H, Creatinine 1.54 H, Estimated GFR (MDRD) 44.00, BUN/Creatinine Ratio 27.40, Glucose 151.8 H, Calcium 8.82, Total Bilirubin 0.43, AST 24.3, ALT 47.8, Alkaline Phosphatase 95.0, Total Protein 6.26 L, Albumin 3.24 L, Globulin 3.02, Albumin/Globulin Ratio 1.07 09/11/19 04:55: WBC 12.75 H, RBC 4.19 L, Hgb 12.6 L, Hct 38.6 L, MCV 92.1, MCH 30.1, MCHC 32.6, RDW Coeff of Cyrus 13.0, Plt Count 217, Immature Gran % (Auto) 1.5, Neut % (Auto) 87.1 H, Lymph % (Auto) 6.0 L, [place] % (Auto) 4.9, Eos % (Auto) 0.3, Baso % (Auto) 0.2, Immature Gran # (Auto) 0.2, Neut # (Auto) 11.1 H, Lymph # (Auto) 0.8, [place] # (Auto) 0.6, Eos # (Auto) 0.0, Baso # (Auto) 0.0 ASSESSMENT: Please see below. 1. Shortness of breath-Improved. 2. Right lobular pneumonia , clinically improved. 3. Underlining CHF - controlled. 4. Renal azotemia with underlining chronic kidney disease. 5. Diabetes mellitus type 2. 6. CHF. PLAN: 1. Discharge to [facility]. 2. Omnicef 300 mg b.i.d. times 7 days. 3. Prednisone 10 mg b.i.d. for four days then daily for three days. 4. Duonebs t.i.d. for 2 weeks. 5. Pulmicort 1 mg q.h.s. continuous. 6. Check blood sugar twice daily. 7. Oxygen 2L to 3L. 8. The patient is to have PT at the group home. 9. CBC, CMP in one week. 10. Resume normal labs. Plan and coordination of the patient's care discussed in the presence of Radio Time Salesperson and nurse. CONDITION: Stable SCRIBED BY: NANCY LOPEZ Head Of Quality scribed while in presence of service performed by Dr. Lawson/Sherri Mak APRN on 09/11/19 ([id number])
--- NOTE | 2019-09-11 09:10 | PN ---
DATE OF SERVICE: 09/10/2019 SUBJECTIVE: 78 year old white male hospitalized with pneumonia. The patient intermittently had CHF which seems to have resolved. The patient is resting in the chair. REVIEW OF SYSTEMS: CONSTITUTIONAL: No night sweats. No fatigue, malaise, lethargy. No fever or chills. HEENT: Eyes: No visual changes. No eye pain. No eye discharge. ENT: No runny nose. No epistaxis. No sinus pain. No sore throat. No odynophagia. No congestion. RESPIRATORY: No cough, no congestion. No hemoptysis. No shortness of breath. CARDIOVASCULAR: No angina symptoms. No CHF symptoms. No atypical chest pain for CAD. No palpitations. No PND. No orthopnea. GASTROINTESTINAL: No abdominal pain. No nausea or vomiting. No diarrhea or constipation. No hematemesis. No hematochezia. GENITOURINARY: No urgency. No frequency. No dysuria. No hematuria. No obstructive symptoms. No discharge. No pain. No significant abnormal bleeding. MUSCULOSKELETAL: No musculoskeletal pain; no joint swelling. NEUROLOGICAL: No headache. No neck pain. No syncope. No seizures. No dizziness. PSYCHIATRIC: Not anxious. No depression. No suicidal thoughts. No homicidal thoughts. SKIN: No rash. No lesions. No wounds. ENDOCRINE: No unexplained weight loss. No weight gain. HEMATOLOGIC/LYMPHATIC: No anemia. No purpura. No petechiae. No prolonged or excessive bleeding. No palpable lymph nodes. PHYSICAL EXAMINATION: VITAL SIGNS: Temperature 97.3, pulse 78, respiratory rate 20, blood pressure 113/76, oxygen saturation 95% with 2 liters. HEENT: Head normocephalic, atraumatic. Eyes: Extraocular muscles are intact. Pupils are equal, round and reactive to light and accommodation. Ears: No lesions. Nose appeared normal. Throat: No exudate or erythema. NECK: Supple. No JVD, no carotid bruit. No lymphadenopathy or thyromegaly. LUNGS:Decreased breath sounds with a few dry crepitations. Clear to auscultation. Percussion note normal. Chest symmetrical. HEART: S1, S2, no S3. No murmurs. No cyanosis or clubbing. No ascites. Pulses: Dorsalis pedis and posterior tibial pulses +1 to +2 bilaterally. ABDOMEN: Soft. Nontender. Bowel sounds active. No CVA tenderness. No mass felt. EXTREMITIES: No edema. Full range of motion of all extremities, equal. NEUROLOGIC: No focal deficit. Cranial nerves II through XII are grossly intact. No headache, no double vision or headache. SKIN: Not dry. Intact. Turgor - normal. LYMPHATIC: No palpable lymph nodes/no lymphedema. MUSCULOSKELETAL: Normal joints with no swelling. Muscle tone is normal. LABS: Hgb 12, hct 36, WBC 13,000 normal differential, creatinine 1.2, BUN 42, potassium 4.4. Kidney function seems to be improving. Oral intake has increased. ASSESSMENT: 1. Pneumonia seems to be resolving clinically 2. CHF under control 3. Dilated cardiomyopathy, ischemic 4. CVA 5. Chronic kidney disease PLAN: 1. Continue antibiotics, steroids, NEBS 2. Monitor the patient for fluid overload or CHF. CONDITION: Stable. TIME SPENT: More than 30 minutes. Plan and coordination of the patient's care discussed in the presence of nurse. JUDSON
--- NOTE | 2019-09-11 10:40 | PN ---
DATE OF SERVICE: 09/09/2019 SUBJECTIVE: 78 year old white male hospitalized with pneumonia. There was possibility of congestive heart failure a couple of days ago which has been treated. The patient is laying flat. REVIEW OF SYSTEMS: CONSTITUTIONAL: No night sweats. No fatigue, malaise, lethargy. No fever or chills. HEENT: Eyes: No visual changes. No eye pain. No eye discharge. ENT: No runny nose. No epistaxis. No sinus pain. No sore throat. No odynophagia. No congestion. RESPIRATORY: No cough, no congestion. No hemoptysis. No shortness of breath. CARDIOVASCULAR: No angina symptoms. No CHF symptoms. No atypical chest pain for CAD. No palpitations. No PND. No orthopnea. GASTROINTESTINAL: No abdominal pain. No nausea or vomiting. No diarrhea or constipation. No hematemesis. No hematochezia. GENITOURINARY: No urgency. No frequency. No dysuria. No hematuria. No obstructive symptoms. No discharge. No pain. No significant abnormal bleeding. MUSCULOSKELETAL: No musculoskeletal pain; no joint swelling. NEUROLOGICAL: No headache. No neck pain. No syncope. No seizures. No dizziness. PSYCHIATRIC: Not anxious. No depression. No suicidal thoughts. No homicidal thoughts. SKIN: No rash. No lesions. No wounds. ENDOCRINE: No unexplained weight loss. No weight gain. HEMATOLOGIC/LYMPHATIC: No anemia. No purpura. No petechiae. No prolonged or excessive bleeding. No palpable lymph nodes. PHYSICAL EXAMINATION: GENERAL: The patient is alert, difficult to figure out whether he is oriented to person or place. He has aphagia dysarthria from CVA. VITAL SIGNS: Temperature 97.4, pulse 86, respiratory 16, blood pressure 132/90 and pulse ox 93%. HEENT: Head normocephalic, atraumatic. Eyes: Extraocular muscles are intact. Pupils are equal, round and reactive to light and accommodation. Ears: No lesions. Nose appeared normal. Throat: No exudate or erythema. NECK: Supple. No JVD, no carotid bruit. No lymphadenopathy or thyromegaly. LUNGS: Decreased breath sounds. Clear to auscultation. Percussion note normal. Chest symmetrical. HEART: S1, S2, no S3. No murmurs. No cyanosis or clubbing. No ascites. Pulses: Dorsalis pedis and posterior tibial pulses +1 to +2 bilaterally. ABDOMEN: Soft. Nontender. Bowel sounds active. No CVA tenderness. No mass felt. EXTREMITIES: No edema. Full range of motion of all extremities, equal. NEUROLOGIC: No focal deficit. Cranial nerves II through XII are grossly intact. No headache, no double vision or headache. SKIN: Not dry. Intact. Turgor - normal. LYMPHATIC: No palpable lymph nodes/no lymphedema. MUSCULOSKELETAL: Normal joints with no swelling. Muscle tone is normal. LABS: hgb 11.9, hct 36, WBC 17,000 normal differential, creatinine 1.3, BUN 50, potassium 3.9. PRO BNP 7,860 on 09/07/2019. ASSESSMENT: 1. Pneumonia clinically seems to be resolving 2. CHF seems to be under control 3. Ischemia cardiomyopathy with poor ejection fraction 4. Dilated left ventricle 5. CVA to the point to disability. Unable to ambulate, dysarthria, aphagia 6. Chronic kidney disease 7. Chronic anemia. PLAN: 1. Continue antibiotics, steroids and NEBS 2. Monitor kidney function which has been stable, abnormal 1.3 and 50 creatinine and BUN respectively. 3. No evidence of CHF clinically. TIME SPENT: More than 30 minutes. Plan and coordination of the patient's care discussed in the presence of nurse. JUDSON
--- NOTE | 2019-09-11 11:04 | PN ---
DATE OF SERVICE: 09/08/19 SUBJECTIVE: The patient was seen and examined with the nurse practitioner. The patient's condition is stable. His CHF symptoms resolved. Appetite better. Pneumonia seems to be resolving. TIME SPENT: More than 30 minutes. Plan and coordination of the patient's care discussed in the presence of nurse. JUDSON
--- NOTE | 2019-09-11 13:50 | PN ---
DATE OF SERVICE: 09/11/2019 SUBJECTIVE: The patient was seen and examined with the Nurse Practitioner. The patient's condition has stabilized. His pneumonia seems to have resolved clinically. CHF is under control. His appetite has improved. His kidney functions are stable and improving with chronic kidney disease. The patient is going to be discharged to the residential. The patient is DNR. CONDITION: Stable. TIME SPENT: More than 30 minutes. Plan and coordination of the patient's care discussed in the presence of nurse. JUDSON
--- NOTE | 2019-09-11 13:51 | PN ---
09/04/2019: Level 5 09/05/2019: Intermediate 09/06/2019: Intermediate 09/07/2019: Intermediate 09/08/2019: Intermediate 09/09/2019: Intermediate 09/10/2019: Intermediate 09/11/2019: D as in discharge MTDD
[2019-09-11 14:33] VITALS: BP 147/83; TEMP 97.1
--- NOTE | 2019-09-11 15:18 | CM.DICTOOL ---
ADMISSION: 09/04/19 17:32 DISCHARGE: 2019 DATE OF SERVICE: 09/11/19 FINAL DIAGNOSIS RT LOBULAR PNEUMONIA, CLINICALLY IMPROVED UNDERLYING CHF - CONTROLLED DIABETES MELLITUS TYPE 2 RENAL AZOTEMIA WITH UNDERLYING CHRONIC KIDNEY DISEASE, STAGE 2 ISCHEMIC CARDIOMYOPATHY HX: PULMONARY EDEMA, H/O PNEUMONIA, RECURRENT CHEST PAIN ABDOMINAL ABSCESS WITH CELLULITIS MRSA ORGANISM ESSENTIAL HYPERTENSION HYPOKALEMIA RESOLVED COPD DIABETES MELLITUS, TYPE 2 SYSTOLIC CONGESTIVE HEART FAILURE DUE TO VALVULAR DISEASE CAD CVA, RIGHT SIDED HEMIPARESIS DYSARTHRIA DYSLIPIDEMIA BPH DEPRESSION PANCREATITIS CANCER HX OF SMOKING SURGICAL PROCEDURES CABG LAST VITALS Temp Pulse Resp BP Pulse Ox 97.5 F L 92 H 20 129/72 97 09/11/19 05:30 09/11/19 05:30 09/11/19 05:30 09/11/19 05:30 09/11/19 10:00 TAKE THESE MEDICATIONS AT HOME Albuterol/Ipratropium (Duoneb) X 1 TONIGHT THEN FOR 2 MORE WEEKS 3 ml NEB TID [facility] (NEW) Last Admin: 09/11/19 11:00 Dose: 3 ml Documented by: Aspirin (Aspirin Ec) 81 mg PO DAILYWM [facility] Last Admin: 09/11/19 08:35 Dose: 81 mg Documented by: Atorvastatin Calcium (Lipitor) 20 mg PO BEDTIME [facility] Last Admin: 09/10/19 20:30 Dose: 20 mg Documented by: Budesonide (Pulmicort 1 Mg/2 Ml) 1 mg NEB @ BEDTIME PRUDENCIO ( DO NOT STOP UNLESS MD ORDERED) (NEW) Last Admin: 09/11/19 04:55 Dose: 1 mg Documented by: Clopidogrel Bisulfate (Plavix) 75 mg PO DAILY [facility] Last Admin: 09/11/19 08:37 Dose: 75 mg Documented by: Furosemide (Lasix Tab) 40 mg PO QDAC [facility] Last Admin: 09/11/19 05:54 Dose: 40 mg Documented by: Insulin Detemir (Levemir) 50 unit SUBCUT BEDTIME [facility] Last Admin: 09/10/19 20:31 Dose: 50 unit Documented by: Insulin Detemir (Levemir) 50 unit SUBCUT DAILYWM [facility] Last Admin: 09/11/19 08:43 Dose: 50 unit Documented by: Lisinopril (Zestril) 5 mg PO DAILY [facility] (CHANGED) Last Admin: 09/11/19 08:35 Dose: 5 mg Documented by: Pantoprazole Sodium (Protonix) 40 mg PO BIDAC [facility] Last Admin: 09/11/19 05:54 Dose: 40 mg Documented by: Paroxetine HCl (Paxil) 20 mg PO DAILY [facility] Last Admin: 09/11/19 08:37 Dose: 20 mg Documented by: Polyethylene Glycol (Miralax) 17 gm PO DAILY [facility] Last Admin: 09/11/19 08:33 Dose: 17 gm Documented by: Potassium Chloride (K-Dur) 20 meq PO DAILYWM [facility] Last Admin: 09/11/19 08:36 Dose: 20 meq Documented by: Prednisone (Prednisone) 10 MG @ 1730 THEN 09/12/2009 CONTINUE 10 mg PO BID WM [facility] X 4 DAYS THEN DAILY X 3 DAYS ( NEW) Last Admin: 09/11/19 08:35 Dose: 10 mg Documented by: Sotalol HCl (Betapace) 40 mg PO BID [facility] Last Admin: 09/11/19 08:36 Dose: 40 mg Documented by: Tamsulosin HCl (Flomax) 0.4 mg PO DAILY [facility] Last Admin: 09/11/19 08:34 Dose: 0.4 mg Documented by: OMNICEF 300 MG PO BID X 7 DAYS-- START 09/12/2019 ( NEW) ALLERGIES No Known Allergies Allergy (Verified 10/23/17 11:45) DICONTINUED MEDICATION CHANGED ZESTRIL NEW PRESCRIPTIONS: 1. DUONEB TID X 2 WEEKS 2. PULMICORT 1 MG NEB @ BEDTIME SCHEDULED 3. LISINIPRIL 5 MG PO DAILY 4. PREDNISONE 10 PO BID X 4 DAYS THEN DAILY X 3 DAYS 5. OMNICEF 300MG PO BID X 7 DAYS SMOKING: NON- APPLICABLE DISEASE SPECIFIC EDUCATION: PNEUMONIA CHF CHRONIC KIDNEY DISEASE DM LAB REVIEW: 09/11/19 04:55 09/11/19 04:55 09/11/19 04:55: Sodium 138.2, Potassium 4.51, Chloride 100.4, Carbon Dioxide 35.4 H, Anion Gap 6.91, BUN 42.2 H, Creatinine 1.54 H, Estimated GFR (MDRD) 44.00, BUN/Creatinine Ratio 27.40, Glucose 151.8 H, Calcium 8.82, Total Bilirubin 0.43, AST 24.3, ALT 47.8, Alkaline Phosphatase 95.0, Total Protein 6.26 L, Albumin 3.24 L, Globulin 3.02, Albumin/Globulin Ratio 1.07 09/11/19 04:55: WBC 12.75 H, RBC 4.19 L, Hgb 12.6 L, Hct 38.6 L, MCV 92.1, MCH 30.1, MCHC 32.6, RDW Coeff of Cyrus 13.0, Plt Count 217, Immature Gran % (Auto) 1.5, Neut % (Auto) 87.1 H, Lymph % (Auto) 6.0 L, [place] % (Auto) 4.9, Eos % (Auto) 0.3, Baso % (Auto) 0.2, Immature Gran # (Auto) 0.2, Neut # (Auto) 11.1 H, Lymph # (Auto) 0.8, [place] # (Auto) 0.6, Eos # (Auto) 0.0, Baso # (Auto) 0.0 PLAN: DISCHARGE BACK TO [facility] AND [facility] TODAY ACTIVITY: UP IN CHAIR FOR MEALS PT AND OT TO EVAL AND TREAT DIET : [address] [facility] SOFT ICT ANALYST CONSULT PRN LABS TO BE DRAWN AND TAKEN TO [facility] LAB: CBC,CMP IN A WEEK CBC,CMP AND A1C EVERY 3 MONTHS LIPIDS, T4 AND TSH EVERY [address] LAWSON/JOSEFINA LADD APRN TO SEE AT [facility] ON ROUNDS, CALL PRN WITH UPDATES OR CONCERNS CODE STATUS: DO NOT RESUSCITATE MR. POLK REMAINS ALERT AND ORIENTED X 4. RESPONDS TO STAFF INTERACTIONS WITH EXPRESSIVE APHASIC AT TIMES AND AN APHASIC SPEECH. 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 CAME THROUGH ED WITH REPORTS OF RT ABD PAIN AND OBJECTIVE ABD DISTENSION WITH NOTHING REMARKABLE FROM CT ABD/PELVIS . HX OF PANCREATITIS WITH AMYLASE AND LIPASE WNL . NO FURTHER REPORTS OF ABD PAIN. LOOSE SOUNDING COUGH AT TIMES NON-PRODUCTIVE WITH WHEEZING AT TIMES. CHEST C T WAS DONE UPON ED ENTRY AND IMPRESSION WAS 1. CARDIOMEGALY WITH FINDINGS SUGGESTING PULMONARY INTERSTITIAL EDEMA AND MODERATE BILATERAL PLEURAL EFFUSIONS WITH ADJACENT ATELECTASIS AND / OR PNEUMONIA . 2. SMALL AREA OF CONSOLIDATION RIGHT UPPER LOBE, SUSPICIOUS FOR SUPERIMPOSED PNEUMONIA. DID HAVE AN EPISODE OF DIFFICULTY CLEARING SECRETIONS WITH ACUTE SOA AND TACHYCARDIA THEN WAS MANAGED. COMPLETED A REGIMEN OF IV ROCEPHIN AND LEVAQUIN AND IV SOLU -MEDROL. WILL CONT WITH PO OMNICEF AND PREDNISONE FOR 7 DAYS ALONG WITH DUONEB AND PULMICORT. ZESTRIL WAS REDUCED TO 5 MG PO DAILY. FEDS SELF WITH SET UP. APPETITE FAIR TO GOOD. FLUID INTAKE WNL. USES URINAL MAJORITY OF THE TIME, HOWEVER WITH THIS EPISODE OF ILLNESS HAS HAD PERIODS OF INCONTINENCE. OUTPUT HAD BEEN APPROPRIATE. IS CONTINENT OF BOWELS AND LBM 09/10/2019. HE HAD BEEN GETTING UP IN THE W/C AND PROPELLING SELF PRIOR TO THIS EPISODE. WILL HAVE THERAPY EVAL AT [facility]. MD JOSEFINA MARRERO, FLEET COORDINATOR
--- NOTE | 2019-09-13 09:23 | DS ---
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 LABS TO BE DRAWN AND TAKEN TO [facility] LAB: CBC,CMP IN A WEEK. CBC,CMP AND A1C EVERY 3 MONTHS. LIPIDS, T4 AND TSH EVERY [address] LAWSON/JOSEFINA LADD APRN TO SEE AT [facility] ON ROUNDS, CALL PRN WITH UPDATES OR CONCERNS. CODE STATUS: DO NOT RESUSCITATE. TAKE THESE MEDICATIONS AT HOME: Albuterol/Ipratropium (Duoneb) X 1 TONIGHT THEN FOR 2 MORE WEEKS 3 ml NEB TID [facility] (NEW) Last Admin: 09/11/19 11:00 Dose: 3 ml Documented by: Aspirin (Aspirin Ec) 81 mg PO DAILYWM [facility] Last Admin: 09/11/19 08:35 Dose: 81 mg Documented by: Atorvastatin Calcium (Lipitor) 20 mg PO BEDTIME [facility] Last Admin: 09/10/19 20:30 Dose: 20 mg Documented by: Budesonide (Pulmicort 1 Mg/2 Ml) 1 mg NEB @ BEDTIME PRUDENC[facility] ( DO NOT STOP UNLESS MD ORDERED) (NEW) Last Admin: 09/11/19 04:55 Dose: 1 mg Documented by: Clopidogrel Bisulfate (Plavix) 75 mg PO DAILY [facility] Last Admin: 09/11/19 08:37 Dose: 75 mg Documented by: Furosemide (Lasix Tab) 40 mg PO QDAC [facility] Last Admin: 09/11/19 05:54 Dose: 40 mg Documented by: Insulin Detemir (Levemir) 50 unit SUBCUT BEDTIME [facility] Last Admin: 09/10/19 20:31 Dose: 50 unit Documented by: Insulin Detemir (Levemir) 50 unit SUBCUT DAILYWM [facility] Last Admin: 09/11/19 08:43 Dose: 50 unit Documented by: Lisinopril (Zestril) 5 mg PO DAILY [facility] (CHANGED) Last Admin: 09/11/19 08:35 Dose: 5 mg Documented by: Pantoprazole Sodium (Protonix) 40 mg PO BIDAC [facility] Last Admin: 09/11/19 05:54 Dose: 40 mg Documented by: Paroxetine HCl (Paxil) 20 mg PO DAILY [facility] Last Admin: 09/11/19 08:37 Dose: 20 mg Documented by: Polyethylene Glycol (Miralax) 17 gm PO DAILY [facility] Last Admin: 09/11/19 08:33 Dose: 17 gm Documented by: Potassium Chloride (K-Dur) 20 meq PO DAILYWM [facility] Last Admin: 09/11/19 08:36 Dose: 20 meq Documented by: Prednisone (Prednisone) 10 MG @ 1730 THEN 09/12/2009 CONTINUE 10 mg PO BID [facility] X 4 DAYS THEN DAILY X 3 DAYS ( NEW) Last Admin: 09/11/19 08:35 Dose: 10 mg Documented by: Sotalol HCl (Betapace) 40 mg PO BID [facility] Last Admin: 09/11/19 08:36 Dose: 40 mg Documented by: Tamsulosin HCl (Flomax) 0.4 mg PO DAILY [facility] Last Admin: 09/11/19 08:34 Dose: 0.4 mg Documented by: OMNICEF 300 MG PO BID X 7 DAYS-- START 09/12/2019 ( NEW) ALLERGIES: No Known Allergies Allergy (Verified 10/23/17 11:45) DISCONTINUED MEDICATION: CHANGED ZESTRIL NEW PRESCRIPTIONS: 1. DUONEB TID X 2 WEEKS 2. PULMICORT 1 MG NEB @ BEDTIME SCHEDULED 3. LISINIPRIL 5 MG PO DAILY 4. PREDNISONE 10 PO BID X 4 DAYS THEN DAILY X 3 DAYS 5. OMNICEF 300MG PO BID X 7 DAYS SMOKING: NON- APPLICABLE DISEASE SPECIFIC EDUCATION: PNEUMONIA CHF CHRONIC KIDNEY DISEASE DM LAB REVIEW: 09/11/19 04:55 09/11/19 04:55 09/11/19 04:55: Sodium 138.2, Potassium 4.51, Chloride 100.4, Carbon Dioxide 35.4 H, Anion Gap 6.91, BUN 42.2 H, Creatinine 1.54 H, Estimated GFR (MDRD) 44.00, BUN/Creatinine Ratio 27.40, Glucose 151.8 H, Calcium 8.82, Total Bilirubin 0.43, AST 24.3, ALT 47.8, Alkaline Phosphatase 95.0, Total Protein 6.26 L, Albumin 3.24 L, Globulin 3.02, Albumin/Globulin Ratio 1.07 09/11/19 04:55: WBC 12.75 H, RBC 4.19 L, Hgb 12.6 L, Hct 38.6 L, MCV 92.1, MCH 30.1, MCHC 32.6, RDW Coeff of Cyrus 13.0, Plt Count 217, Immature Gran % (Auto) 1.5, Neut % (Auto) 87.1 H, Lymph % (Auto) 6.0 L, [place] % (Auto) 4.9, Eos % (Auto) 0.3, Baso % (Auto) 0.2, Immature Gran # (Auto) 0.2, Neut # (Auto) 11.1 H, Lymph # (Auto) 0.8, [place] # (Auto) 0.6, Eos # (Auto) 0.0, Baso # (Auto) 0.0 ACTIVITY: UP IN CHAIR FOR MEALS PT AND OT TO EVAL AND TREAT DIET : 1800 [address] [facility] 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 CT of the abdomen was normal no indication for the vomiting. He was short of breath and had been coughing. CT of the chest revealed right lobular pneumonia along with some interstitial and pulmonary edema. He does have a history of CHF with a previous ejection fraction of 20-25%. He was admitted and placed on IV antibiotics Rocephin 1 gram IV daily along with Zithromax daily for three days along with Solu-Cortef 125mg IV Q 8 hours. We did given Lasix initially at 20mg IV. Kidney function went up slightly. He does have underlined chronic kidney disease and was somewhat dehydrated on admission. We did given him slow IV fluids, normal saline at 50cc an hour. Over the course of the next several days he gradually improve, did take some time. He had some episodes of shortness of breath. We given additional IV Lasix. He was a former smoker with underlining COPD. For the past 48 hours he has been doing well. On 1.5 liters which is his normal. Kidney function is back down to normal and he has been eating well. He was vomiting the first two days but this has since resolved. Denies any abdominal pain since. Labs are stable. He is doing well. We will discharge him back to the group home. He will be on Omnicef 300mg BID for 7 days along with Prednisone 10mg BID for 4 days and then daily for 3 days along with NEBS TID for the next two weeks and Pulmicort NEBS BID as a new maintenance medications. He was discharged in stable condition. We will followup with him next week in the group home. TIME SPENT: More than 60 minutes. MTDD
== END 2019-09-11 16:50 | DRG 695 ==
LOC: ED 14:07 → SCU 17:32
PROVIDERS: ADMIT Internal Medicine; ATTEND Internal Medicine
DX: R79.89 Other specified abnormal findings of blood chemistry; J81.1 Chronic pulmonary edema; E86.0 Dehydration; R53.1 Weakness; A49.02 Methicillin resistant Staphylococcus aureus infection, unspecified site; E78.5 Hyperlipidemia, unspecified; I69.922 Dysarthria following unspecified cerebrovascular disease; I50.20 Unspecified systolic (congestive) heart failure; R10.9 Unspecified abdominal pain; R07.9 Chest pain, unspecified; I25.10 Atherosclerotic heart disease of native coronary artery without angina pectoris; L02.211 Cutaneous abscess of abdominal wall; R05 Cough; E11.9 Type 2 diabetes mellitus without complications; R11.10 Vomiting, unspecified; F32.9 Major depressive disorder, single episode, unspecified; N18.2 Chronic kidney disease, stage 2 (mild); R06.02 Shortness of breath; J44.9 Chronic obstructive pulmonary disease, unspecified; J18.9 Pneumonia, unspecified organism; R63.0 Anorexia; I10 Essential (primary) hypertension; I25.5 Ischemic cardiomyopathy; E87.6 Hypokalemia; D64.9 Anemia, unspecified; Z91.19 Patient's noncompliance with other medical treatment and regimen; R35.0 Frequency of micturition

== ENCOUNTER 2019-09-23 02:35 | Inpatient (IN) ==
[2019-09-23] MEDS ORDERED: DUONEB NEB STA (03:18)
--- NOTE | 2019-09-23 03:43 | ED.PDOC ---
General ED Provider: Dr. RAMSES FIGUEROA Chief Complaint: Shortness of Air Stated Complaint: Patient is a 78 year old male who is brought to the ER with complaints of shortness of breath that started today. He was recently admitted here and discharged for Pneumonia. He was given an Breathing treatment on the way here. Time Seen by Physician: 22:15 Mode of Arrival: Ambulance Information Source: Patient, Fpc and EMT Primary Care Provider: IDALIA LAWSON Nursing and Triage Documentation Reviewed and Agree: Yes Does patient meet sepsis criteria?: No System Inflammatory Response Syndrome: Not Applicable Sepsis Protocol: For patient's 13 years and over: Temp is 96.8 and below OR 101 and greater Pulse >90 BPM Resp >20/minute Acutely Altered Mental Status Are patient's symptoms suggestive of a new infection, such as: -Pneumonia -Skin, Soft Tissue -Endocarditis -UTI -Bone, Joint Infection -Implantable Device -Acute Abdominal Infection -Wound Infection -Meningitis -Blood Stream Catheter Infection -Unknown Respiratory Complaint Exam Shortness of Air Complaint/Exam Onset/Duration: tonight one hour prior to arrival. Symptoms Are: Still present Timing: Constant Initial Severity: Moderate Current Severity: Moderate Character: Reports Dyspnea at rest Aggravating: Reports None Alleviating: Reports EMS treatment and Oxygen Associated Signs and Symptoms: Reports Cough and Chest pain with cough History of Healthcare-Acquired Pneumonia: Lives at [facility] Pulmonary Embolism Risk Factors: Reports None Cardiac Risk Factors: Reports Prior MD, Hypertension and CHF Pseudomonas Risk Factors: Reports Chronic Lung Disease Home Oxygen Use: No Respiratory Distress: Mild Stridor Present: No Tracheal Deviation: No Subcutaneous Emphysema: No Accessory Muscle Use: No Retractions: Not Present Diminished Breath Sounds: Yes Prolonged Expiratory Phase: No Unable to Speak Full Sentences: No Fatigue: No Leg Swelling: No Lynnette's Sign Present: No Grunting Respirations: No Kussmaul Respirations: No Differential Diagnoses: Asthma, CHF, COPD Exacerbation, Pneumonia and Bronchitis Quality Indicators For Pneumonia/CAP: Blood Cultures-SCU admit Related Surgical History: Reports Renal Failure Review of Systems Review Of Systems Constitutional: Reports No symptoms Eyes: Reports No symptoms Respiratory: Reports Cough, Short of air and Wheezing Cardiac: Denies Chest pain, Edema, Lightheadedness and Syncope GI: Reports No symptoms : Reports No symptoms Musculoskeletal: Reports No symptoms Neurological: Reports Unable to move lower ext (on the right ), Unable to move upper ext (on the right ) and Other (expressive aphasia) All Other Systems: Reviewed and Negative [facility] Family History (Updated 09/23/19 @ 06:13 by RAMILA SANDOVAL, RN) Other No known health problems Social History (Updated 09/04/19 @ 20:07 by DMITRY CORREA) Smoking and tobacco status: Former smoker Substance use type: does not use Physical Exam Physical Exam Appearance: Reports Ill-appearing, No pain distress and Well-nourished Ill-appearing: Mild Pain Distress: None Eyes: Reports IZABELA and EOMI ENT: Reports Oropharynx normal Neck: Supple Respiratory: Reports Breath sounds diminished, Rhonchi and Wheezes Cardiovascular: Reports Tachycardia GI/: Reports Soft and Nontender Musculoskeletal: Reports Normal strength and ROM intact Skin: Reports Warm and Dry Neurological: Reports Motor intact Psychiatric: Reports Affect appropriate and Mood appropriate Interpretation Radiology Interpretation Radiology Interpretation By: Radiologist Radiology Results: Positive (Pulmonary Edema. Inflrate improving ) Exam Interpreted: Portable CXR Hydraulic Operator Rate: Normal Rhythm: Sinus Ectopy: None EKG Interpretation Time of EKG #1: 03:17 Rate: Normal Rhythm: Sinus Ectopy: PACs [place]: Left Interpretation: old septal infarct EKG Comparison: No significant changes Critical Care Note Critical Care Note Total Time (mins): 45 Course Course Hematology/Chemistry: 09/23/19 04:02 09/23/19 04:02 Orders, Labs, Meds: Lab Review 09/23/19 09/23/19 09/23/19 03:29 04:02 04:02 WBC 9.61 RBC 4.14 L Hgb 12.4 L Hct 38.3 L MCV 92.5 MCH 30.0 MCHC 32.4 RDW Coeff of Cyrus 13.8 Plt Count 152 Immature Gran % (Auto) 0.2 Neut % (Auto) 90.3 H Lymph % (Auto) 5.1 L [place] % (Auto) 4.0 Eos % (Auto) 0.3 Baso % (Auto) 0.1 Immature Gran # (Auto) 0.0 Neut # (Auto) 8.7 H Lymph # (Auto) 0.5 L [place] # (Auto) 0.4 Eos # (Auto) 0.0 Baso # (Auto) 0.0 Puncture Site Lb O2 Saturation 89.0 L ABG pH 7.436 ABG pCO2 38.9 ABG pO2 54.0 L* ABG HCO3 26.2 H ABG Total CO2 27 ABG Base Excess 2 Judd Test + FiO2 % 21.0 Sodium Potassium Chloride Carbon Dioxide Anion Gap BUN Creatinine Estimated GFR (MDRD) BUN/Creatinine Ratio Glucose Lactic Acid 1.13 Calcium Total Bilirubin AST ALT Alkaline Phosphatase Total Creatine Kinase Troponin I NT-Pro-B Natriuret Pep Total Protein Albumin Globulin Albumin/Globulin Ratio Procalcitonin 09/23/19 09/23/19 04:02 04:02 WBC RBC Hgb Hct MCV MCH MCHC RDW Coeff of Cyrus Plt Count Immature Gran % (Auto) Neut % (Auto) Lymph % (Auto) [place] % (Auto) Eos % (Auto) Baso % (Auto) Immature Gran # (Auto) Neut # (Auto) Lymph # (Auto) [place] # (Auto) Eos # (Auto) Baso # (Auto) Puncture Site O2 Saturation ABG pH ABG pCO2 ABG pO2 ABG HCO3 ABG Total CO2 ABG Base Excess Judd Test FiO2 % Sodium 138.7 Potassium 4.19 Chloride 106.9 Carbon Dioxide 27.6 Anion Gap 8.39 BUN 30.3 H Creatinine 1.32 H Estimated GFR (MDRD) 52.00 BUN/Creatinine Ratio 22.95 Glucose 154.7 H Lactic Acid Calcium 8.24 L Total Bilirubin 0.53 AST 32.6 ALT 32.3 Alkaline Phosphatase 108.7 Total Creatine Kinase 35.1 L Troponin I 0.128 H NT-Pro-B Natriuret Pep 5270.000 H Total Protein 5.92 L Albumin 3.13 L Globulin 2.79 Albumin/Globulin Ratio 1.12 Procalcitonin < 0.05 Orders Category Date Time Status ABG DRAW REQUEST Stat CARDIO 09/23/19 03:29 Completed EKG-(ED ONLY) Stat CARDIO 09/23/19 03:19 Completed NEBULIZER TREATMENT Stat CARDIO 09/23/19 03:21 Completed GIVE HS SNACK 2100 CARE 09/23/19 05:22 Active INTAKE & OUTPUT Q8HR CARE 09/23/19 05:19 Active 2 GRAM SODIUM DIET DIETARY 09/23/19 Breakfast Ordered ADA 1800 BOY. DIET DIETARY 09/23/19 Breakfast Ordered HS SNACK DIETARY 09/23/19 Dinner Ordered ED CAR RACER APPLIED .ONCE EMERGENCY 09/23/19 03:18 Active ED IV/MEDIPORT/POWERPORT .ONCE EMERGENCY 09/23/19 03:18 Active OXYGEN [ED APPLY O2] .ONCE EMERGENCY 09/23/19 03:49 Active ABG Stat LAB 09/23/19 03:29 Completed BASIC METABOLIC PANEL DAILY@0600 LAB 09/24/19 06:00 Ordered BLOOD CULTURE (ED ONLY) Stat LAB 09/23/19 04:02 Received CBC W/ AUTO DIFF DAILY@0600 LAB 09/24/19 06:00 Ordered CBC W/ AUTO DIFF Stat LAB 09/23/19 04:02 Completed COMPREHENSIVE METABOLIC PANEL Stat LAB 09/23/19 04:02 Completed CREATINE KINASE Stat LAB 09/23/19 04:02 Completed LACTIC ACID Stat LAB 09/23/19 04:02 Completed NT-PROBNP Stat LAB 09/23/19 04:02 Completed PROCALCITONIN Stat LAB 09/23/19 04:02 Completed TROPONIN I Stat LAB 09/23/19 04:02 Completed 0.9 % Sodium Chloride [Saline Flush] MEDS 09/23/19 03:18 Active 1 syr IVF PRN PRN Enoxaparin Sodium [Lovenox] MEDS 09/23/19 09:00 Active 30 mg SUBCUT DAILY Furosemide [Lasix] MEDS 09/23/19 05:04 Discontinued 20 mg IVP ONCE STA Furosemide [Lasix] MEDS 09/24/19 06:30 Active 40 mg IVP QDAC Ipratropium/Albuterol Neb [Duoneb] MEDS 09/23/19 03:18 Discontinued 3 ml NEB ONCE STA CHEST, 1V AP ONLY Stat RADS 09/23/19 03:19 Completed Medications Generic Name Dose Route Start Last Admin Trade Name Freq PRN Reason Stop Dose Admin Albuterol/Ipratropium 3 ml 09/23/19 06:00 09/23/19 19:40 Duoneb NEB 3 ml RTTID PRUDENCIO Administration Aspirin 81 mg 09/23/19 08:00 09/23/19 08:55 Aspirin Ec PO 81 mg DAILYWM [facility] Administration Atorvastatin Calcium 20 mg 09/23/19 21:00 09/23/19 21:15 Lipitor PO 20 mg BEDTIME PRUDENCIO Administration Budesonide 1 mg 09/23/19 06:00 09/23/19 19:40 Pulmicort 1 Mg/2 Ml NEB 1 mg RTBID PRUDENCIO Administration Clopidogrel Bisulfate 75 mg 09/23/19 09:00 09/23/19 08:55 Plavix PO 75 mg DAILY PRUDENC[facility] Administration Dexamethasone Sodium Phosphate 4 mg 09/23/19 11:00 09/23/19 11:15 Decadron 4 Mg/Ml Sdv IM 09/24/19 10:59 4 mg DAILY PRUDENCIO Administration Enoxaparin Sodium 30 mg 09/23/19 09:00 09/23/19 08:59 Lovenox SUBCUT 30 mg DAILY PRUDENC[facility] Administration Furosemide 40 mg 09/24/19 06:30 Lasix IVP QDAC PRUDENCIO Insulin Detemir 50 unit 09/23/19 08:00 09/23/19 09:01 Levemir SUBCUT 50 unit DAILYWM [facility] Administration Insulin Detemir 50 unit 09/23/19 21:00 09/23/19 21:16 Levemir SUBCUT 50 unit BEDTIME [facility] Administration Insulin Human Regular 0 unit 09/23/19 10:38 09/23/19 17:36 Humulin R SUBCUT 4 unit PRN PRN Administration Hyperglycemia Protocol Lisinopril 5 mg 09/23/19 09:00 09/23/19 08:55 Zestril PO 5 mg DAILY PRUDENCIO Administration Pantoprazole Sodium 40 mg 09/23/19 06:30 09/23/19 07:43 Protonix PO 40 mg QDAC PRUDENCIO Administration Paroxetine HCl 20 mg 09/23/19 09:00 09/23/19 08:56 Paxil PO 20 mg DAILY [facility] Administration Polyethylene Glycol 17 gm 09/23/19 09:00 09/23/19 08:55 Miralax PO 17 gm DAILY [facility]UD[facility] Administration Potassium Chloride 20 meq 09/23/19 09:00 09/23/19 08:55 K-Dur PO 20 meq DAILY [facility]UD[facility] Administration Prednisone 10 mg 09/23/19 21:00 09/23/19 21:16 Prednisone PO 10 mg BEDTIME PRUDENC[facility] Administration Sodium Chloride 1 syr 09/23/19 03:18 Saline Flush IVF PRN PRN To flush IV Sotalol HCl 80 mg 09/23/19 21:00 09/23/19 21:16 Betapace PO 80 mg BID PRUDENCIO Administration Tamsulosin HCl 0.4 mg 09/23/19 09:00 09/23/19 08:55 Flomax PO 0.4 mg DAILY PRUDENC[facility] Administration Discontinued Medications Generic Name Dose Route Start Last Admin Trade Name Freq PRN Reason Stop Dose Admin Albuterol/Ipratropium 3 ml 09/23/19 03:18 09/23/19 03:50 Duoneb NEB 09/23/19 03:19 3 ml ONCE STA Administration Furosemide 20 mg 09/23/19 05:04 09/23/19 05:09 Lasix IVP 09/23/19 05:05 20 mg ONCE STA Administration Morphine Sulfate 2 mg 09/23/19 05:49 09/23/19 05:52 Morphine 2 Mg/Ml Syringe IVP 09/23/19 05:50 2 mg ONCE STA Administration Sotalol HCl 40 mg 09/23/19 09:00 09/23/19 08:55 Betapace PO 40 mg BID PRUDENCIO Administration Vital Signs: Temp Pulse Resp BP Pulse Ox 09/23/19 05:14 97.8 F 91 H 22 143/86 H 98 09/23/19 02:58 98.2 F 103 H 24 164/93 H 93 L Discharge Plan Discharge Patient Disposition: ADMITTED INPATIENT Discharge Problem: CHF exacerbation Qualifiers: Heart failure type: systolic Qualified Code(s): I50.23 - Acute on chronic systolic (congestive) heart failure Respiratory failure with hypoxia Qualifiers: Chronicity: acute Qualified Code(s): J96.01 - Acute respiratory failure with hypoxia ED Provider: RAMSES FIGUEROA Condition: Stable Discharge Date/Time: 09/23/19 05:50
--- NOTE | 2019-09-23 04:58 | DI ---
EXAM: Chest, single view, 09/23/2019 HISTORY: Shortness of breath COMPARISON: 09/05/2019 FINDINGS / IMPRESSION: Cardiomediastinal contours appear stable. Postoperative changes of the media stinum. Central pulmonary vascular congestion with diffuse pulmonary edema. Bilateral pleural effus ions. Right basilar opacities appears slightly improved. Left pulmonary aeration grossly stable.
[2019-09-23] MEDS ORDERED: LASIX IVP STA (05:04)
[2019-09-23] MEDS ORDERED: DILAUDID 1 MG/ML SYRINGE IVP STA (05:46)
[2019-09-23] MEDS ORDERED: MORPHINE 2 MG/ML SYRINGE IVP STA (05:49)
[2019-09-23] MEDS: PULMICORT 1 MG/2 ML NEB SCH ×2 (06:03→19:40)
[2019-09-23] MEDS: DUONEB NEB SCH ×3 (06:04→19:40)
[2019-09-23 06:24] VITALS: BMI 27.3
[2019-09-23] MEDS: PROTONIX PO SCH (07:43)
[2019-09-23] MEDS: K-DUR PO SCH (08:55)
[2019-09-23] MEDS: MIRALAX PO SCH (08:55)
[2019-09-23] MEDS: ASPIRIN EC PO SCH (08:55)
[2019-09-23] MEDS: PLAVIX PO SCH (08:55)
[2019-09-23] MEDS: ZESTRIL PO SCH (08:55)
[2019-09-23] MEDS: FLOMAX PO SCH (08:55)
[2019-09-23] MEDS: PAXIL PO SCH (08:56)
[2019-09-23] MEDS: LOVENOX SUBCUT SCH (08:59)
[2019-09-23] MEDS ORDERED: DUONEB NEB SCH (09:00)
[2019-09-23] MEDS ORDERED: BETAPACE PO SCH (09:00)
[2019-09-23] MEDS: LEVEMIR SUBCUT SCH ×2 (09:01→21:16)
[2019-09-23] MEDS: DECADRON 4 MG/ML SDV IM SCH (11:15)
[2019-09-23] MEDS: HUMULIN R SUBCUT PRN (17:36)
[2019-09-23] MEDS ORDERED: PULMICORT 1 MG/2 ML NEB SCH (21:00)
[2019-09-23] MEDS: LIPITOR PO SCH (21:15)
[2019-09-23] MEDS: PREDNISONE PO SCH (21:16)
[2019-09-23] MEDS: BETAPACE PO SCH (21:16)
[2019-09-24] MEDS: PULMICORT 1 MG/2 ML NEB SCH ×2 (05:25→19:54)
[2019-09-24] MEDS: DUONEB NEB SCH ×3 (05:25→19:54)
[2019-09-24] MEDS: LASIX IVP SCH (05:54)
[2019-09-24] MEDS: PROTONIX PO SCH (05:58)
[2019-09-24] MEDS: HUMULIN R SUBCUT PRN ×4 (05:58→20:42)
[2019-09-24] MEDS: MIRALAX PO SCH (09:07)
[2019-09-24] MEDS: K-DUR PO SCH (09:07)
[2019-09-24] MEDS: ZESTRIL PO SCH (09:08)
[2019-09-24] MEDS: FLOMAX PO SCH (09:08)
[2019-09-24] MEDS: PLAVIX PO SCH (09:08)
[2019-09-24] MEDS: PAXIL PO SCH (09:08)
[2019-09-24] MEDS: ASPIRIN EC PO SCH (09:08)
[2019-09-24] MEDS: BETAPACE PO SCH ×2 (09:09→20:43)
[2019-09-24] MEDS: DECADRON 4 MG/ML SDV IM SCH (09:09)
[2019-09-24] MEDS: LEVEMIR SUBCUT SCH ×2 (09:10→20:42)
[2019-09-24] MEDS: LOVENOX SUBCUT SCH (09:10)
[2019-09-24] MEDS: LIPITOR PO SCH (20:43)
[2019-09-24] MEDS: PREDNISONE PO SCH (20:43)
[2019-09-25] MEDS: PULMICORT 1 MG/2 ML NEB SCH ×2 (04:37→20:05)
[2019-09-25] MEDS: DUONEB NEB SCH ×3 (04:37→20:05)
[2019-09-25] MEDS: PROTONIX PO SCH (05:56)
[2019-09-25] MEDS: HUMULIN R SUBCUT PRN ×2 (05:56→11:44)
[2019-09-25] MEDS: LASIX IVP SCH (06:30)
--- NOTE | 2019-09-25 09:20 | PCM.PROG ---
Attending Provider: ATTENDING PROVIDER: Dr. IDALIA LAWSON This patient is seen with Sherri Mak, Nurse Practitioner. DATE OF SERVICE: 09/25/19 SUBJECTIVE: This 78 year old /WHITE M was hospitalized 09/23/19. The patient is lying in bed resting comfortably. Shortness of breath is improved. He is alert and oriented. No leg edema. REVIEW OF SYSTEMS: CONSTITUTIONAL: Weakness. No night sweats. No fatigue, malaise, lethargy. No fever or chills. HEENT: Eyes: No visual changes. No eye pain. No eye discharge. ENT: No runny nose. No epistaxis. No sinus pain. No odynophagia. No congestion. RESPIRATORY: No cough, no congestion. No hemoptysis. No shortness of breath. CARDIOVASCULAR: No angina symptoms. No CHF symptoms. No atypical chest pain for CAD. No palpitations. No orthopnea.. GASTROINTESTINAL: No abdominal pain. No nausea or vomiting. No diarrhea or constipation. No hematemesis. No hematochezia. GENITOURINARY: No urgency. No frequency. No dysuria. No hematuria. No obstructive symptoms. No discharge. No pain. No significant abnormal bleeding. MUSCULOSKELETAL: No musculoskeletal pain; no joint swelling. NEUROLOGICAL: Awake, alert, oriented. No headache. No neck pain. No syncope. No seizures. No dizziness. PSYCHIATRIC: Not anxious. No depression. No suicidal thoughts. No homicidal thoughts. SKIN: No rash. No lesions. No wounds. ENDOCRINE: No unexplained weight loss. No weight gain. HEMATOLOGIC/LYMPHATIC: No anemia. No purpura. No petechiae. No prolonged or excessive bleeding. No palpable lymph nodes. PHYSICAL EXAMINATION: GENERAL: The patient is awake, alert and oriented, lying/sitting in bed in no distress. VITAL SIGNS: Temperature 97.5 F, Pulse 94, Respiratory Rate 18, BP 118/75, Pulse Ox 95% HEENT: Head normocephalic, atraumatic. Eyes: Extraocular muscles are intact. Pupils are equal, round and reactive to light and accommodation. Ears: No lesions. Nose appeared normal. Throat: No exudate or erythema. NECK: Supple. No JVD, no carotid bruit. No lymphadenopathy or thyromegaly. LUNGS: Diminished breath sounds. Clear to auscultation. Percussion note normal. Chest symmetrical. HEART: S1, S2, no S3. No murmurs. No cyanosis or clubbing. No ascites. Pulses: Dorsalis pedis and posterior tibial pulses +1 to +2 both sides. ABDOMEN: Soft. Non-tender. Bowel sounds active. No CVA tenderness. No mass felt. EXTREMITIES: No edema. Full range of motion of all extremities, equal. NEUROLOGIC: No focal deficit. Cranial nerves II through XII are grossly intact. No headache, no double vision or headache. SKIN: Not dry. Intact. Turgor-normal. LYMPHATIC: No palpable lymph nodes/no lymphedema. MUSCULOSKELETAL: Normal joints with no swelling. Muscle tone is normal. LAB REVIEW: 09/25/19 04:58 09/25/19 04:58 09/25/19 04:58: WBC 14.23 H, RBC 4.09 L, Hgb 12.2 L, Hct 38.4 L, MCV 93.9, MCH 29.8, MCHC 31.8, RDW Coeff of Cyrus 13.5, Plt Count 144, Neutrophils % (Manual) 83.0 H, Lymphocytes % (Manual) 8.0 L, Monocytes % (Manual) 9.0, Anisocytosis Not present 09/25/19 04:58: Sodium 138.5, Potassium 4.20, Chloride 103.4, Carbon Dioxide 31.0 H, Anion Gap 8.30, BUN 38.6 H, Creatinine 1.52 H, Estimated GFR (MDRD) 45.00, BUN/Creatinine Ratio 25.39, Glucose 146.4 H, Calcium 8.60, Total Bilirubin 0.37, AST 31.4, ALT 30.4, Alkaline Phosphatase 105.5, NT-Pro-B Natriuret Pep 5060.000 H, Total Protein 5.80 L, Albumin 3.04 L, Globulin 2.76, Albumin/Globulin Ratio 1.10 ASSESSMENT: Please see below. 1. CHF improved. 2. Shortness of breath resolved. 3. Underlying chronic kidney disease, Stage 3. 4. Diabetes mellitus Type 2, insulin dependent. 5. History of CVA with hemiparesis. PLAN: 1. D/C IV Lasix; give 40 mg p.o. tomorrow. Plan and coordination of the patient's care discussed in the presence of Tire Service Supervisor and nurse. CONDITION: Stable SCRIBED BY: NANCY LOPEZ Checkout Operator scribed while in presence of service performed by Dr. Lawson/Sherri Mak APRN on 09/25/19 ([id number])
[2019-09-25] MEDS: FLOMAX PO SCH (09:49)
[2019-09-25] MEDS: MIRALAX PO SCH (09:49)
[2019-09-25] MEDS: ASPIRIN EC PO SCH (09:49)
[2019-09-25] MEDS: BETAPACE PO SCH ×2 (09:50→21:32)
[2019-09-25] MEDS: K-DUR PO SCH (09:50)
[2019-09-25] MEDS: LEVEMIR SUBCUT SCH ×2 (09:50→21:33)
[2019-09-25] MEDS: ZESTRIL PO SCH (09:50)
[2019-09-25] MEDS: PAXIL PO SCH (09:50)
[2019-09-25] MEDS: PLAVIX PO SCH (09:50)
[2019-09-25] MEDS: LOVENOX SUBCUT SCH (09:55)
--- NOTE | 2019-09-25 10:31 | PN ---
DATE OF SERVICE: 09/24/2019 SUBJECTIVE: 78 year old white male hospitalized with acute respiratory failure, hypoxemia. The patient's arterial blood gasses done this morning showed pO2 of 66 with pCO2 40 with pH of 7.38 with 92% oxygen saturation on room air. On admission the patient's pO2 was less than 50. He was in acute respiratory failure. The patient is breathing a lot better. He is able to respond to verbal commands. The patient has severe dysarthria unable to understand. REVIEW OF SYSTEMS: CONSTITUTIONAL: No night sweats. No fatigue, malaise, lethargy. No fever or chills. HEENT: Eyes: No visual changes. No eye pain. No eye discharge. ENT: No runny nose. No epistaxis. No sinus pain. No sore throat. No odynophagia. No congestion. RESPIRATORY: No cough, no congestion. No hemoptysis. No shortness of breath. CARDIOVASCULAR: No angina symptoms. No CHF symptoms. No atypical chest pain for CAD. No palpitations. No PND. No orthopnea. GASTROINTESTINAL: No abdominal pain. No nausea or vomiting. No diarrhea or constipation. No hematemesis. No hematochezia. GENITOURINARY: No urgency. No frequency. No dysuria. No hematuria. No obstructive symptoms. No discharge. No pain. No significant abnormal bleeding. MUSCULOSKELETAL: No musculoskeletal pain; no joint swelling. NEUROLOGICAL: No headache. No neck pain. No syncope. No seizures. No dizziness. PSYCHIATRIC: Not anxious. No depression. No suicidal thoughts. No homicidal thoughts. SKIN: No rash. No lesions. No wounds. ENDOCRINE: No unexplained weight loss. No weight gain. HEMATOLOGIC/LYMPHATIC: No anemia. No purpura. No petechiae. No prolonged or excessive bleeding. No palpable lymph nodes. PHYSICAL EXAMINATION: VITAL SIGNS: Temperature 97.9, pulse 94, respiratory rate 16, blood pressure 124/80 and pulse ox 98% with 2 liters. HEENT: Head normocephalic, atraumatic. Eyes: Extraocular muscles are intact. Pupils are equal, round and reactive to light and accommodation. Ears: No lesions. Nose appeared normal. Throat: No exudate or erythema. NECK: Supple. No JVD, no carotid bruit. No lymphadenopathy or thyromegaly. LUNGS: Decreased breath sounds. Good air entry. Clear to auscultation. Percussion note normal. Chest symmetrical. HEART: S1, S2, no S3. No murmurs. No cyanosis or clubbing. No ascites. Pulses: Dorsalis pedis and posterior tibial pulses +1 to +2 bilaterally. ABDOMEN: Soft. Nontender. Bowel sounds active. No CVA tenderness. No mass felt. EXTREMITIES: No edema. Full range of motion of all extremities, equal. NEUROLOGIC: No focal deficit. Cranial nerves II through XII are grossly intact. No headache, no double vision or headache. SKIN: Not dry. Intact. Turgor - normal. LYMPHATIC: No palpable lymph nodes/no lymphedema. MUSCULOSKELETAL: Normal joints with no swelling. Muscle tone is normal. LABS: hgb 12.2, hct 38, WBC 12,000 normal differential, creatinine 1.4, BUN 31, potassium 4.3 ASSESSMENT: 1. Acute respiratory failure, seems to have resolved. ABG shows remarkable improvement 2. Congestive heart failure, under control PLAN: 1. Chest x-ray and BNP tomorrow 2. The patient is DNI. There is always a confusion about this patient whenever he gets admitted and the nursing staff seems to have been unable to get it right. It has been proven time and again with Power of Leather Stretcher with Lalo Cain that the patient is DNI. CONDITION Stable. Improving TIME SPENT: More than 30 minutes. Plan and coordination of the patient's care discussed in the presence of nurse. JUDSON
--- NOTE | 2019-09-25 13:33 | HP ---
DATE OF SERVICE: 09/23/19 REASON FOR HOSPITALIZATION: Shortness of breath, respiratory distress. HISTORY OF PRESENT ILLNESS: 78-year-old white male who was brought to the emergency room because of hypoxemia and the patient worsening of respiratory status. I was called and I instructed the intermediate to send him to [facility] Emergency Room. The patient was seen and examined by ER attending. He was diagnosed to have acute pulmonary edema. He was hospitalized and was given 40 Lasix and his condition improved within a couple of hours. PAST MEDICAL/SURGICAL HISTORY: The patient was recently hospitalized and discharged on 09/11/19 with diagnosis of pneumonia. History of congestive heart failure Ischemic dilated cardiomyopathy Chronic kidney disease Diabetes mellitus History of recurrent pneumonia Hypertension Chronic lung disease CVA with right hemiparesis Dysarthria Depression History of pancreatitis Coronary artery bypass surgery REVIEW OF SYSTEMS: (Unable to take properly but patient seems to be breathing fine) CONSTITUTIONAL: Unable to take but the patient is feeling comfortable. HEENT: Eyes: No visual changes. No eye pain. No eye discharge. ENT: No runny nose. No epistaxis. No sinus pain. No sore throat. No odynophagia. No ear pain. No congestion. RESPIRATORY: No respiratory distress. No cough, no congestion noted. CARDIOVASCULAR: The patient is laying flat. No PND, no orthopnea. Declined of any chest pain. GASTROINTESTINAL: No abdominal pain. No nausea or vomiting. No diarrhea or constipation. No hematemesis. No hematochezia. GENITOURINARY: No urgency. No frequency. No dysuria. No hematuria. No obstructive symptoms. No discharge. No pain. No significant abnormal bleeding. MUSCULOSKELETAL: No musculoskeletal pain. No joint swelling. No arthritis. NEUROLOGICAL: Moving all extremities except for right upper and lower extremity, paralyzed. Right upper and lower extremity paralyzed. No headache. No neck pain. No syncope. No seizures. No dizziness. PSYCHIATRIC: Not anxious. No depression. No suicidal thoughts. No homicidal thoughts. SKIN: No rash. No lesions. No wounds. ENDOCRINE: No unexplained weight loss. No weight gain. HEMATOLOGIC/LYMPHATIC: No anemia. No purpura. No petechiae. No prolonged or excessive bleeding. No palpable lymph nodes. PERSONAL/FAMILY/SOCIAL HISTORY: The patient is , resident of the intermediate. Nonsmoker. No alcohol use. He use to be a heavy smoker in the past and drank and abused alcohol. He was unable to do most of the activity of daily living, has to depend on nursing staff for most of the activities of daily living functions. MEDICATIONS: Aspirin 81 mg p.o. daily Plavix 75 mg p.o. daily Pantoprazole 40 mg daily Paroxetine 20 mg daily Atorvastatin 20 mg daily Furosemide 40 mg p.o. daily Levemir 50 units daily Miralax one scoop daily Betapace 40 mg twice a day Flomax 0.4 mg daily K-Tab 20 mEq daily Pulmicort inhalation at bedtime Ipratropium-Albuterol t.i.d. p.r.n. Lisinopril 5 mg p.o. daily Prednisone 10 mg at bedtime ALLERGIES: NKDA PHYSICAL EXAMINATION: VITAL SIGNS: After treatment and several hours in the hospital the temperature 98.3, pulse 100, respiratory rate 20, BP 143/86, pulse ox 98% on 2L. HEENT: Face is symmetrical. Head normocephalic, atraumatic. Eyes: Extraocular muscles are intact. Pupils are equal, round and reactive to light and accommodation. Ears: No lesions. Nose appeared normal. Throat: No exudate or erythema. NECK: Supple. No JVD, no carotid bruit. No lymphadenopathy or thyromegaly. LUNGS: Decreased breath sounds with few crepitations at the bases. Mild expiratory wheeze. Acceptable air entry. Percussion note normal. Chest symmetrical. HEART: PMI not palpable on auscultation. S1, S2, no S3. Grade I/ systolic murmur. No S3 noted. Trace edema. No cyanosis or clubbing. No ascites. Pulses: Dorsalis pedis and posterior tibial pulses +1 bilaterally. ABDOMEN: Soft. Nontender. Bowel sounds active. No CVA tenderness. No mass felt. EXTREMITIES: Trace edema. Right hemiparesis noted. NEUROLOGIC: No focal deficit. Cranial nerves II through XII are grossly intact. No headache, no double vision or headache. SKIN: Not dry. Intact. Turgor - normal. LYMPHATIC: No palpable lymph nodes/no lymphedema. MUSCULOSKELETAL: Normal joints with no swelling. Muscle tone is normal. LABS: Hemoglobin 12.4, hematocrit 38, WBC 9,600, normal differential. Creatinine 1.3, BUN 30, potassium 4.1. ABG on room air on admission to the emergency room: pH 7.43, p02 54, pc02 38, oxygen saturation 89% on room air. Chest x-ray pulmonary edema. EKG: RBB type of pattern, left axis biventricular hypertrophy, no acute changes. Cardiac markers negative. ASSESSMENT: 1. ACUTE PULMONARY EDEMA WITH ACUTE RESPIRATORY FAILURE WITH HISTORY OF CONGESTIVE HEART FAILURE SYSTOLIC. 2. DILATED ISCHEMIC CARDIOMYOPATHY WITH LOW EJECTION FRACTION. 3. CHRONIC LUNG DISEASE. 4. HISTORY OF SMOKING WITH RECURRENT PNEUMONIA. 5. DIABETES MELLITUS TYPE 2. 6. CHRONIC KIDNEY DISEASE. 7. CORONARY ARTERY BYPASS SURGERY. 8. HISTORY OF HYPERTENSION. 9. DYSLIPIDEMIA. 10. DYSRHYTHMIA WITH PVC'S. 11. HISTORY OF PANCREATITIS. 12. DEPRESSION, CONTROLLED. PLAN: 1. Give IV Lasix every day. 2. Monitor telemetry. 3. Routine telemetry orders which would include cardiac markers and monitoring of oxygen saturation. 4. 1 cc Decadron IM for bronchial congestion. 5. Encourage the patient to eat. 6. Continue all home medications including Zestril 10 mg. 7. Increase Sotalol to 80 mg twice a day. 8. We may think about putting the patient on Entresto, add Aldactone once the patient's condition stabilizes. 9. The patient is DNI. TIME SPENT: More than 70 minutes. JUDSON
--- NOTE | 2019-09-25 14:32 | DI ---
EXAM: Frontal chest HISTORY: Pneumonia. FINDINGS: Compared to 09/23/2019. Cardiomegaly and sternotomy wires are again noted. There is mild central vascular congestion with probable mild interstitial edema. No visible pleural fluid, lobar consolidation or pneumothorax. IMPRESSION: 1. Stable slight improvement in pulmonary vascular congestion. No obvious consolidated pneumonia al though managing the patient on a clinical basis is recommended.
[2019-09-25] MEDS: PREDNISONE PO SCH (21:32)
[2019-09-25] MEDS: LIPITOR PO SCH (21:32)
[2019-09-26] MEDS ORDERED: DEXTROSE 50%-WATER ABBOJECT IVP STA (05:00)
[2019-09-26] MEDS: DUONEB NEB SCH ×2 (05:20→14:29)
[2019-09-26] MEDS: PULMICORT 1 MG/2 ML NEB SCH (05:55)
[2019-09-26] MEDS ORDERED: LASIX TAB PO SCH ×2 (06:30)
[2019-09-26] MEDS: PROTONIX PO SCH (06:35)
[2019-09-26] MEDS ORDERED: K-DUR PO SCH (08:00)
[2019-09-26] MEDS ORDERED: PAXIL PO SCH (09:00)
--- NOTE | 2019-09-26 09:17 | PCM.PROG ---
Attending Provider: ATTENDING PROVIDER: Dr. IDALIA LAWSON This patient is seen with Sherri Mak, Nurse Practitioner. DATE OF SERVICE: 09/26/19 SUBJECTIVE: This 78 year old /WHITE M was hospitalized 09/23/19. The patient is lying in bed resting comfortably. He is eating well. Chest x-ray showed mild improvement yesterday. No leg edema. REVIEW OF SYSTEMS: CONSTITUTIONAL: Weakness. No night sweats. No fatigue, malaise, lethargy. No fever or chills. HEENT: Eyes: No visual changes. No eye pain. No eye discharge. ENT: No runny nose. No epistaxis. No sinus pain. No odynophagia. No congestion. RESPIRATORY: Positive for cough. No hemoptysis. No shortness of breath. CARDIOVASCULAR: No angina symptoms. No CHF symptoms. No atypical chest pain for CAD. No palpitations. No orthopnea.. GASTROINTESTINAL: No abdominal pain. No nausea or vomiting. No diarrhea or constipation. No hematemesis. No hematochezia. GENITOURINARY: No urgency. No frequency. No dysuria. No hematuria. No obstructive symptoms. No discharge. No pain. No significant abnormal bleeding. MUSCULOSKELETAL: No musculoskeletal pain; no joint swelling. NEUROLOGICAL: Awake, alert, oriented to time, place and person. No headache. No neck pain. No syncope. No seizures. No dizziness. PSYCHIATRIC: Not anxious. No depression. No suicidal thoughts. No homicidal thoughts. SKIN: No rash. No lesions. No wounds. ENDOCRINE: No unexplained weight loss. No weight gain. HEMATOLOGIC/LYMPHATIC: No anemia. No purpura. No petechiae. No prolonged or excessive bleeding. No palpable lymph nodes. PHYSICAL EXAMINATION: GENERAL: The patient is awake, alert and oriented, lying/sitting in bed in no distress. VITAL SIGNS: Temperature 98.7 F, Pulse 60, Respiratory Rate 20, BP 118/58, Puls e Ox 96% HEENT: Head normocephalic, atraumatic. Eyes: Extraocular muscles are intact. Pupils are equal, round and reactive to light and accommodation. Ears: No lesions. Nose appeared normal. Throat: No exudate or erythema. NECK: Supple. No JVD, no carotid bruit. No lymphadenopathy or thyromegaly. LUNGS: Diminished breath sounds. Clear to auscultation. Percussion note normal. Chest symmetrical. HEART: S1, S2, no S3. No murmurs. No cyanosis or clubbing. No ascites. Pulses: Dorsalis pedis and posterior tibial pulses +1 to +2 both sides. ABDOMEN: Soft. Non-tender. Bowel sounds active. No CVA tenderness. No mass felt. EXTREMITIES: No edema. Full range of motion of all extremities, equal. NEUROLOGIC: No focal deficit. Cranial nerves II through XII are grossly intact. No headache, no double vision or headache. SKIN: Not dry. Intact. Turgor-normal. LYMPHATIC: No palpable lymph nodes/no lymphedema. MUSCULOSKELETAL: Normal joints with no swelling. Muscle tone is normal. LAB REVIEW: 09/26/19 04:30 09/26/19 04:30 09/26/19 04:30: Sodium 137.6, Potassium 3.60, Chloride 102.5, Carbon Dioxide 29.5, Anion Gap 9.20, BUN 46.3 H, Creatinine 1.48 H, Estimated GFR (MDRD) 46.00, BUN/Creatinine Ratio 31.28, Glucose 45.3 L* D, Calcium 8.40, Total Bilirubin 0.91, AST 36.4, ALT 39.7, Alkaline Phosphatase 98.5, Total Protein 6.08 L, Albumin 3.20 L, Globulin 2.88, Albumin/Globulin Ratio 1.11 09/26/19 04:30: WBC 12.81 H, RBC 4.09 L, Hgb 12.1 L, Hct 37.5 L, MCV 91.7, MCH 29.6, MCHC 32.3, RDW Coeff of Cyrus 14.1, Plt Count 139 L, Immature Gran % (Auto) 0.5, Neut % (Auto) 83.5 H, Lymph % (Auto) 5.3 L, [place] % (Auto) 10.4 H, Eos % (Auto) 0.2, Baso % (Auto) 0.1, Immature Gran # (Auto) 0.1, Neut # (Auto) 10.7 H, Lymph # (Auto) 0.7, [place] # (Auto) 1.3, Eos # (Auto) 0.0, Baso # (Auto) 0.0 ASSESSMENT: Please see below. 1. CHF improved. 2. Shortness of breath resolved. 3. Underlying chronic kidney disease, Stage 3. 4. Diabetes mellitus Type 2, insulin dependent. 5. History of CVA with hemiparesis. PLAN: 1. Will evaluate need for nasal cannula. 2. Anticipate possible discharge back to [facility] today. 3. CBC, CMP in one week. 4. D/C Prednisone. 5. Continue other medications as they are. 6. Pulmicort 1 mg at night. 7. Duonebs p.r.n. Plan and coordination of the patient's care discussed in the presence of Monogram And Letter Paster and nurse. CONDITION: Stable SCRIBED BY: NANCY LOPEZ Construction Plant Operator scribed while in presence of service performed by Dr. Lawson/Sherri Mak APRN on 09/26/19 (0802)
[2019-09-26] MEDS: MIRALAX PO SCH (09:20)
[2019-09-26] MEDS: ZESTRIL PO SCH (09:22)
[2019-09-26] MEDS: FLOMAX PO SCH (09:22)
[2019-09-26] MEDS: PLAVIX PO SCH (09:22)
[2019-09-26] MEDS: BETAPACE PO SCH (09:22)
[2019-09-26] MEDS: ASPIRIN EC PO SCH (09:22)
[2019-09-26] MEDS: LOVENOX SUBCUT SCH (09:23)
[2019-09-26] MEDS: LEVEMIR SUBCUT SCH (10:32)
--- NOTE | 2019-09-26 12:58 | PN ---
09/23/2019: Level 5 09/24/2019: Intermediate 09/25/2019: Intermediate 09/26/2019: D as in discharge. MTDD
--- NOTE | 2019-09-26 12:58 | PN ---
DATE OF SERVICE: 09/26/2019 SUBJECTIVE: The patient was seen and examined this morning. The patient's CHF seems to have completely resolved clinically as well as his oxygenation and respiratory status. Lalo, who is Power of Information Technology Account Manager for Health discussion took place for the patient's code status. Ultimately it was decided that he is a full code. The patient's condition is stable enough to be discharged today. TIME SPENT: More than 30 minutes. Plan and coordination of the patient's care discussed in the presence of nurse. JUDOSN
[2019-09-26 14:53] VITALS: BP 132/80; TEMP 98.3
--- NOTE | 2019-09-26 14:59 | CM.DICTOOL ---
ADMISSION: 09/23/19 05:22 DISCHARGE: SEPTEMBER 26, 2019 DATE OF SERVICE: 09/26/19 FINAL DIAGNOSIS CHF- IMPROVED SHORTNESS OF BREATH- RESOLVED UNDERLYING CHRONIC KIDNEY DISEASE, STAGE 3 DIABETES MELLITUS TYPE 2, INSULIN DEPENDENT HISTORY OF CVA WITH HEMIPARESIS HX: PNEUMONIA ACUTE BRONCHITIS RT LOWER LOBE PULMONARY EDEMA CHEST PAIN ABDOMINAL ABSCESS WITH CELLULITIS, MRSA ORGANISM ESSENTIAL HYPERTENSION HYPOKALEMIA RESOLVED COPD DIABETES MELLITUS, TYPE 2 SYSTOLIC CONGESTIVE HEART FAILURE DUE TO VALVULAR DISEASE CAD CVA, RIGHT SIDED HEMIPARESIS DYSARTHRIA DYSLIPIDEMIA BPH DEPRESSION PANCREATITIS CANCER HX OF SMOKING LVEF 35 % ( ECHO 09/07/2019) SURGICAL PROCEDURES CABG LAST VITALS Temp Pulse Resp BP Pulse Ox 98.7 F 60 20 118/58 L 94 L 09/26/19 06:00 09/26/19 06:00 09/26/19 06:00 09/26/19 06:00 09/26/19 09:55 TAKE THESE MEDICATIONS AT HOME Albuterol/Ipratropium (Duoneb) 3 ml NEB T.I.D PRN FOR SOA ----- (CHANGED) Last Admin: 09/26/19 05:20 Dose: 3 ml Documented by: Atorvastatin Calcium (Lipitor) 20 mg PO BEDTIME [facility] Last Admin: 09/25/19 21:32 Dose: 20 mg Documented by: Budesonide (Pulmicort 1 Mg/2 Ml) 1 mg NEB @ BEDTIME [facility] Last Admin: 09/26/19 05:55 Dose: 1 mg Documented by: Clopidogrel Bisulfate (Plavix) 75 mg PO DAILY [facility] Last Admin: 09/26/19 09:22 Dose: 75 mg Documented by: Furosemide (Lasix Tab) 40 mg PO QDAC [facility] Last Admin: 09/26/19 06:35 Dose: 40 mg Documented by: Insulin Detemir (Levemir) 50 unit SUBCUT DAILYWM [facility] Last Admin: 09/26/19 10:32 Dose: Not Given Documented by: Insulin Detemir (Levemir) 50 unit SUBCUT BEDTIME [facility] Last Admin: 09/25/19 21:33 Dose: 50 unit Documented by: Lisinopril (Zestril) 5 mg PO DAILY [facility] Last Admin: 09/26/19 09:22 Dose: 5 mg Documented by: Pantoprazole Sodium (Protonix) 40 mg PO QDAC [facility] Last Admin: 09/26/19 06:35 Dose: 40 mg Documented by: Paroxetine HCl (Paxil) 20 mg PO DAILY [facility] Last Admin: 09/26/19 09:21 Dose: 20 mg Documented by: Polyethylene Glycol (Miralax) 17 gm PO DAILY [facility] Last Admin: 09/26/19 09:20 Dose: 17 gm Documented by: Potassium Chloride (K-Dur) 20 meq PO DAILYWM [facility] Last Admin: 09/26/19 09:22 Dose: 20 meq Documented by: Sotalol HCl (Betapace) 80 mg PO BID [facility] -------- ( CHANGED) Last Admin: 09/26/19 09:22 Dose: 80 mg Documented by: Tamsulosin HCl (Flomax) 0.4 mg PO DAILY [facility] Last Admin: 09/26/19 09:22 Dose: 0.4 mg Documented by: ASA 81 MG PO DAILY LAST DOSE 09/26/2019 0900 ALLERGIES No Known Allergies Allergy (Verified 09/23/19 04:20) DISCONTINUED MEDICATIONS PREDNISONE SCHEDULED DUO NEB ( CHANGE TO PRN) NEW PRESCRIPTIONS: CHANGES 1). DUONEBS TO TID PRN 2). BETAPACE 80 MG PO BID SMOKING: NON- APPLICABLE DISEASE SPECIFIC EDUCATION: CHF CKD DM LAB REVIEW: 09/26/19 04:30 09/26/19 04:30 09/26/19 04:30: Sodium 137.6, Potassium 3.60, Chloride 102.5, Carbon Dioxide 29.5, Anion Gap 9.20, BUN 46.3 H, Creatinine 1.48 H, Estimated GFR (MDRD) 46.00, BUN/Creatinine Ratio 31.28, Glucose 45.3 L* D, Calcium 8.40, Total Bilirubin 0.91, AST 36.4, ALT 39.7, Alkaline Phosphatase 98.5, Total Protein 6.08 L, Albumin 3.20 L, Globulin 2.88, Albumin/Globulin Ratio 1.11 09/26/19 04:30: WBC 12.81 H, RBC 4.09 L, Hgb 12.1 L, Hct 37.5 L, MCV 91.7, MCH 29.6, MCHC 32.3, RDW Coeff of Cyrus 14.1, Plt Count 139 L, Immature Gran % (Auto) 0.5, Neut % (Auto) 83.5 H, Lymph % (Auto) 5.3 L, [place] % (Auto) 10.4 H, Eos % (Auto) 0.2, Baso % (Auto) 0.1, Immature Gran # (Auto) 0.1, Neut # (Auto) 10.7 H, Lymph # (Auto) 0.7, [place] # (Auto) 1.3, Eos # (Auto) 0.0, Baso # (Auto) 0.0 PLAN: DISCHARGE TO [facility] ( [facility]) SEPTEMBER 26, 2019 ACTIVITY: UP TO CHAIR FOR MEALS WHEN ABLE. PT AND OT EVAL AND TREAT. DIET : 2 GRAM NA, 1800 ADA. STRAIGHT TRUCK DRIVER CONSULT. LABS: CBC AND CMP ON WEDNESDAY OCTOBER 02, 2019. CBC, CMP AND A1C EVERY 3 MONTHS. LIPIDS, TSH AND T4 EVERY 6 MONTHS. TAKE TO [facility]. ACCU CHECKS EVERY 0700 AND 1700. VITAL SIGNS EVERY SHIFT X 3 DAYS THEN PER FACILITY PROTOCOL. CODE STATUS: FULL CODE. DR. LAWSON/ JOSEFINA LADD APRN TO SEE ON ROUNDS. MR. MARSH REMAINS ALERT ORIENTED X 4 WITH SOME FORGETFULNESS. MCC RIGHT SIDED HEMIPARESIS FROM PAST CVA, EXPRESSIVE DYSPHAGIA AND DYSPHAGIA. PLEASANT AND COOPERATIVE WITH STAFF. HAS VOIDED WELL. NO EDEMA. SACRUM AND COCCYX SKIN REMAIN INTACT . THERE IS AN 1 X 0.8 CM BRUISE TO LT BUTTOCK AND DOES NOT HAVE THE CLINICAL ASPECT OF A SDTI. NO REDNESS TO PERIMETER. USES URINAL AT TIMES AND IS ALSO INCONTINENT OF BOWEL AND BLADDER AT TIMES. REQUIRES COMPLETE CARE AT TIMES AND REMINDERS/ASSISTANCE TO TURN AND REPOSITION. LAB DRAW CHEMISTRY TODAY RESULTED WITH A 45.3 GLUCOSE, NO S/S OF LOW BLOOD SUGAR, 1/2 AMP OF DEXTROSE 5% WAS GIVEN THEN @ 0545 BS WAS 145. APPETITE AND NUTRITIONAL WNL HERE AT THIS STAY , WITH ALL MEALS 100% EXCEPT 2 @ 25%. TOTAL PROTEIN OF 6.08 AND ALBUMIN OF 3.20 ARE IMPROVEMENTS FROM ENTRY RESULTS. HAS BEEN GETTING UP IN W/C WITH ASSIST WITH TRANSFERS AND @ TIMES TRANSFERS HIMSELF, DEPENDING ON ABILITY EACH DAY, INTERMITTENT WITH HIS CONDITION AT [facility]. TYPICALLY PROPELS SELF IN FACILITY IF ABLE THAT GIVEN DAY. HAS NOT AMBULATED FOR SOME TIME AND HAS HX OF REFUSING THERAPY. LBM 09/25/2019. MD JOSEFINA MARRERO APRN
--- NOTE | 2019-10-03 13:00 | DS ---
DATE OF SERVICE: 09/26/2019 FINAL DIAGNOSIS: 1. CHF- IMPROVED 2. SHORTNESS OF BREATH- RESOLVED 3. UNDERLYING CHRONIC KIDNEY DISEASE, STAGE 3 4. DIABETES MELLITUS TYPE 2, INSULIN DEPENDENT 5. HISTORY OF CVA WITH HEMIPARESIS 6. HISTORY OF PNEUMONIA 7. ACUTE BRONCHITIS 8. RT LOWER LOBE 9. 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 LABS: CBC AND CMP ON WEDNESDAY OCTOBER 02, 2019. CBC, CMP AND A1C EVERY 3 MONTHS. LIPIDS, TSH AND T4 EVERY 6 MONTHS. TAKE TO [facility]. ACCU CHECKS EVERY 0700 AND 1700. VITAL SIGNS EVERY SHIFT X 3 DAYS THEN PER FACILITY PROTOCOL. CODE STATUS: FULL CODE. DR. LAWSON/ JOSEFINA LADD APRN TO SEE ON ROUNDS. TAKE THESE MEDICATIONS AT HOME: Albuterol/Ipratropium (Duoneb) 3 ml NEB T.I.D PRN FOR SOA ----- (CHANGED) Last Admin: 09/26/19 05:20 Dose: 3 ml Documented by: Atorvastatin Calcium (Lipitor) 20 mg PO BEDTIME [facility] Last Admin: 09/25/19 21:32 Dose: 20 mg Documented by: Budesonide (Pulmicort 1 Mg/2 Ml) 1 mg NEB @ BEDTIME [facility] Last Admin: 09/26/19 05:55 Dose: 1 mg Documented by: Clopidogrel Bisulfate (Plavix) 75 mg PO DAILY [facility] Last Admin: 09/26/19 09:22 Dose: 75 mg Documented by: Furosemide (Lasix Tab) 40 mg PO QDAC [facility] Last Admin: 09/26/19 06:35 Dose: 40 mg Documented by: Insulin Detemir (Levemir) 50 unit SUBCUT DAILYWM [facility] Last Admin: 09/26/19 10:32 Dose: Not Given Documented by: Insulin Detemir (Levemir) 50 unit SUBCUT BEDTIME [facility] Last Admin: 09/25/19 21:33 Dose: 50 unit Documented by: Lisinopril (Zestril) 5 mg PO DAILY [facility] Last Admin: 09/26/19 09:22 Dose: 5 mg Documented by: Pantoprazole Sodium (Protonix) 40 mg PO QDAC [facility] Last Admin: 09/26/19 06:35 Dose: 40 mg Documented by: Paroxetine HCl (Paxil) 20 mg PO DAILY [facility] Last Admin: 09/26/19 09:21 Dose: 20 mg Documented by: Polyethylene Glycol (Miralax) 17 gm PO DAILY [facility] Last Admin: 09/26/19 09:20 Dose: 17 gm Documented by: Potassium Chloride (K-Dur) 20 meq PO DAILY [facility] Last Admin: 09/26/19 09:22 Dose: 20 meq Documented by: Sotalol HCl (Betapace) 80 mg PO BID [facility] -------- ( CHANGED) Last Admin: 09/26/19 09:22 Dose: 80 mg Documented by: Tamsulosin HCl (Flomax) 0.4 mg PO DAILY [facility] Last Admin: 09/26/19 09:22 Dose: 0.4 mg Documented by: ASA 81 MG PO DAILY LAST DOSE 09/26/2019 0900 ALLERGIES: No Known Allergies Allergy (Verified 09/23/19 04:20) DISCONTINUED MEDICATIONS: PREDNISONE SCHEDULED DUO NEB ( CHANGE TO PRN) NEW PRESCRIPTIONS: CHANGES 1). DUONEBS TO TID PRN 2). BETAPACE 80 MG PO BID SMOKING: NON- APPLICABLE DISEASE SPECIFIC EDUCATION: CHF CKD DM LAB REVIEW: 09/26/19 04:30 09/26/19 04:30 09/26/19 04:30: Sodium 137.6, Potassium 3.60, Chloride 102.5, Carbon Dioxide 29.5, Anion Gap 9.20, BUN 46.3 H, Creatinine 1.48 H, Estimated GFR (MDRD) 46.00, BUN/Creatinine Ratio 31.28, Glucose 45.3 L* D, Calcium 8.40, Total Bilirubin 0.91, AST 36.4, ALT 39.7, Alkaline Phosphatase 98.5, Total Protein 6.08 L, Albumin 3.20 L, Globulin 2.88, Albumin/Globulin Ratio 1.11 09/26/19 04:30: WBC 12.81 H, RBC 4.09 L, Hgb 12.1 L, Hct 37.5 L, MCV 91.7, MCH 29.6, MCHC 32.3, RDW Coeff of Cyrus 14.1, Plt Count 139 L, Immature Gran % (Auto) 0.5, Neut % (Auto) 83.5 H, Lymph % (Auto) 5.3 L, [place] % (Auto) 10.4 H, Eos % (Auto) 0.2, Baso % (Auto) 0.1, Immature Gran # (Auto) 0.1, Neut # (Auto) 10.7 H, Lymph # (Auto) 0.7, [place] # (Auto) 1.3, Eos # (Auto) 0.0, Baso # (Auto) 0.0 ACTIVITY: UP TO CHAIR FOR MEALS WHEN ABLE. PT AND OT EVAL AND TREAT. DIET: 2 GRAM NA, 1800 ADA. [employer] CONSULT. HOSPITAL COURSE: This is a white male who is a resident of [facility]. He was brought to the emergency room with shortness of breath and congestion. He has recently been hospitalization with pneumonia. In ER chest x-ray showed pulmonary edema, evidence of CHF and BNP was elevated at 5,600. He has known ejection fraction of about 30%. Dr. Lawson performed an echo on the last hospitalization. He was admitted and given IV Lasix 40mg for three days. He does have underline chronic kidney disease, kidney function slightly increased due to aggressive diuretic therapy. Then began to improve on his own. Initially he was requiring oxygen at 1-2 liters with saturations greater than 90%. Over the course of several days he is now not using oxygen, has been eating well. He did have some elevation of blood pressure. Dr. Lawson increased the Betapace to 80mg BID. Blood pressure has been well controlled. On day of discharge Blood pressure 118/58, kidney function is stable, BUN of 46 and creatinine of 1.48. On day of discharge this is slightly improved from the previous. Again he does have underlined chronic kidney disease but this is due to diuretic therapy. We will continue him on DUO NEBS as needed. We will continue on the 80mg of Betapace BID. He is to have a CBC and CMP on Wednesday at [facility]. We will discharge him in stable condition and followup at the residential. TIME SPENT: More than 60 minutes. MTDD
== END 2019-09-26 16:30 | DRG 291 ==
LOC: ED 02:40 → SCU 05:22 → EDSTATUS 09-25 14:59
PROVIDERS: ADMIT Internal Medicine; ATTEND Internal Medicine